=== PATIENT | female | born 1940 | race Caucasian/White ===

== ENCOUNTER 2016-06-04 08:59 | Emergency (ER) | payer OTHER, MEDICARE ==
[2016-06-04] MEDS ORDERED: NORMAL SALINE 10 ML SYRINGE FLUSH IVP PRN (09:16)
--- NOTE | 2016-06-04 09:33 | EKG ---
[address] [address] Measurements Intervals [place] Rate: 63 P: 69 OK: 135 QRS: -5 QRSD: 101 T: 29 QT: 375 QTc: 382 Interpretive Statements SINUS RHYTHM Compared to ECG 01/13/2016 00:34:44 No significant changes Electronically Signed On 06-04-16 20:02:34 MST by Colton Lema [email or web address]
[2016-06-04 09:35] VITALS: RESP 16; TEMP 96.5
[2016-06-04 10:04] LABS: BILIRUBIN,URINE NEGATIVE (NEG); CLARITY,URINE CLEAR (CLEAR); GLUCOSE, URINE (UA) NEGATIVE (NEG); LEUKOCYTE ESTERASE ,URINE NEGATIVE (NEG); NITRATE,URINE NEGATIVE (NEG); OCCULT BLOOD,URINE NEGATIVE (NEG); PROTEIN,URINE 30 mg/dl (NEG); UROBILINOGEN,URINE 0.2 EU/dL (0.2)
[2016-06-04 10:15] LABS: BASOPHILS # (AUTO) 0.03 10*3/UL; BASOPHILS % (AUTO) 0.6 % (0-1); EOSINOPHILS % (AUTO) 1.8 % (0-8); HEMATOCRIT 40.8 % (37.0-47.0); HEMOGLOBIN 13.4 g/dL (12.0-16.0); IMM GRAN % (AUTO) 0.2 % (0-5); IMM GRAN# (AUTO) 0.01 10*3/UL; LYMPHOCYTES # (AUTO) 1.32 10*3/uL; LYMPHOCYTES % (AUTO) 26.2 % (10-50); MEAN CORPUSCULAR HEMOGLOBIN 29.5 PG (27-31); MEAN CORPUSCULAR HGB CONC 32.8 g/dL (33-37); MEAN PLATELET VOLUME 9.5 FL (7.4-12.2); MONOCYTES # (AUTO) 0.46 10*3/UL (0.3-0.8); MONOCYTES % (AUTO) 9.1 % (5-15); NEUTROPHILS # (AUTO) 3.13 10*3/UL; NEUTROPHILS % (AUTO) 62.1 % (50-80); RDW COEFFICIENT OF VARIATION 15.2 % (11.5-14.5); RED BLOOD COUNT 4.55 10^6/uL (4.20-5.40); WHITE BLOOD COUNT 5.04 10^3/uL (4.8-10.8)
[2016-06-04 10:22] LABS: URINE SAMPLE TYPE CLEAN CATCH URINE
[2016-06-04 10:22] LABS: PLATELET MORPHOLOGY COMMENT NORMAL MORPHOLOGY (NORM)
[2016-06-04 10:24] LABS: URINE CRYSTALS RARE
[2016-06-04 10:36] LABS: PROTHROMBIN TIME 10.1 secs (9.7-11.4)
[2016-06-04 10:37] LABS: ASPARTATE AMINO TRANSFERASE 24 IU/L (8-39); BILIRUBIN,TOTAL 0.9 mg/dL (0.3-1.2); BLOOD UREA NITROGEN 25 mg/dL (7-22); CALCIUM 10.3 mg/dL (8.7-10.7); CHLORIDE 100 meq/L (98-112); GLUCOSE 168 mg/dL (78-110); MAGNESIUM 1.6 mg/dL (1.6-2.4); POTASSIUM 4.5 meq/L (3.8-5.2); SODIUM 137 meq/L (135-145); TOTAL PROTEIN 8.2 g/dL (6.1-8.0)
[2016-06-04 10:38] LABS: C-REACTIVE PROTEIN < 0.5 mg/dL (0.0-0.9)
--- NOTE | 2016-06-04 10:39 | DI ---
HISTORY: Right-sided headache with right-sided blurred vision. Rule out stroke. COMPARISON: None available. TECHNIQUE: Contiguous axial images of the brain were obtained and submitted for interpretation. 37 images. FINDINGS: No acute infarct, intracranial hemorrhage, or mass effect is identified. There is no hydr ocephalus, or significant midline shift. There is moderate senescent change. The visualized paranasal sinuses and mastoids appear relatively well-aerated. There is modest mucosa l thickening. There is calcification of the pineal gland. IMPRESSION: 1. No intracranial hemorrhage. MRI is recommended if clinical symptoms persist. NOTIFICATION: The above report was sent to Bridgette in the ER Department on 06/04/2016 at 12:46 PM EST.
--- NOTE | 2016-06-04 11:42 | DI ---
HISTORY: Headache and blurred vision. COMPARISON: None available. TECHNIQUE: Multiplanar multisequence imaging without gadolinium. FINDINGS: There is no restricted diffusion on the DWI images. Periventricular and deep white matter T2/FLAIR abnormalities probably represent chronic microvascular ischemia, although demyelinating lesions, though not favored, cannot be completely excluded. There is no intracranial hemorrhage. No GRE sequence has been obtained however. There is no hydrocephalus, or significant midline shift. There is senescent change. Flow voids of the major intracranial vessels are preserved. The pituitary fossa is grossly unremarkable. There is modest mucosal thickening involving the paranasal sinuses. The visualized upper cervical vertebrae appear intact. IMPRESSION: 1. No intracranial hemorrhage. MRA: The middle cerebral arteries, anterior cerebral arteries, basilar artery, both posterior cerebral art eries, and both vertebral arteries demonstrate normal signal return. There is origin of the left AQUATIC FACILITY MANAGER from the left ICA. The left P-comm is prominent. There is att enuation of the left P4 segment, that is probably due to signal dropout rather than true occlusion. IMPRESSION: 1. No large vessel occlusion. NOTIFICATION: The above report was sent to Bridgette in the ER Department on 06/04/2016 at 01:53 PM EST.
[2016-06-04 11:59] LABS: FREE T4 (FREE THYROXINE) 1.44 ng/dL (0.93-1.71)
--- NOTE | 2016-06-04 12:15 | DI ---
HISTORY: Headache and blurred vision. History of stroke. COMPARISON: None available. TECHNIQUE: MRA images without contrast. [id number]. FINDINGS: There is no significant stenosis at either carotid bifurcation by NASCET criteria. The left vertebral artery is dominant. Both vertebral arteries demonstrate antegrade flow. The right vertebral artery arises from the right subclavian artery. The left vertebral artery arises from the left subclavian artery. IMPRESSION: 1. No hemodynamically significant stenosis. NOTIFICATION: The above report was sent to Татьяна in the ER Department on 06/04/2016 at 02:23 PM EST.
--- NOTE | 2016-06-04 21:56 | PDOC ---
Eye Complaint HPI - General Chief Complaint: Eye Problem / Injury Stated Complaint: Eye is blurry Date Seen by Provider: 06/04/16 Time Seen by Provider: 09:05 Source: POSITIVE: Patient Exam Limitations: POSITIVE: No limitations Nurse's Notes Reviewed & Considered: Yes - History of Present Illness Initial Comments: The patient is a 76-year-old female who presents to the emergency department with complaints of blurriness in her right eye and some mild right-sided headache. She states that she woke up early this morning and she felt normal. She had fallen asleep again and when she woke up her right eye had blurry vision. This is persisted since she woke up. She also has just a vague right- sided headache. She does have a history of previous stroke and became concerned that maybe she was having some stroke symptoms. She denies numbness or weakness in her arms, change in speech, balance issues, confusion. She is diabetic and reports that her blood sugar was 150 at home just prior to coming to the emergency room. She denies any associated chest pain or shortness of breath. She has not had any recent illness or trauma. She does report that she has had bilateral cataract surgery and last time she was at the eye doctor she was told that one of her eyes had some buildup from the surgery. She did try to go to the eye doctor today however they were closed. Have you received a tetanus shot in the past 10 years?: Yes - Patient Home Medications Home Medications: Home Medications Ubidecarenone [Co Q-10] 100 mg PO HS 12/14/13 Lorazepam 1 tab PO TID PRN #30 tab 06/09/15 Clopidogrel Bisulfate [Clopidogrel] 75 mg PO DAILY #90 tab 07/01/15 Amlodipine Besylate 10 mg PO DAILY #90 tab 10/03/15 Clonazepam 1 tab PO TID PRN #90 tab 10/11/15 Levothyroxine Sodium 1 tab PO DAILY #30 tab 10/11/15 Pantoprazole Sodium 1 tab PO QPM #30 tab 10/11/15 Insulin Glargine,Hum.rec.anlog [Zaria Rodriguez] 20 unit SUBCUT QHS #4 unit Atorvastatin Calcium 20 mg PO QHS #90 tab 05/02/16 Metoprolol Tartrate 0.5 tab PO BID #90 tab 05/02/16 Ramipril [Altace] 2 cap PO BID #360 cap 05/02/16 Gabapentin [Neurontin] 300 mg PO TID #15 cap 05/21/16 Hydrocodone Bit/Acetaminophen [[place] 5-325 Tablet] 1 tab PO Q4-6H #20 tab Metformin HCl 1 tab PO BID #180 tab 05/21/16 Methylprednisolone [Medrol] 4 mg PO DAILY #1 packet 05/21/16 Diclofenac Sodium [Voltaren] 4 gm TOPICAL QID #3 tube 05/22/16 - Patient Allergies Allergies/Adverse Reactions: Allergies Allergy/AdvReac Type Severity Reaction Status Date / Time iodine [Iodine] Allergy Severe Anaphylaxis Verified 06/04/16 10:31 sitagliptin phosphate AdvReac Severe KIDNEY Verified 06/04/16 10:31 [From Calebuvia] FAILURE SHELLFISH Allergy Severe Anaphylaxis Uncoded 06/04/16 10:31 Past Medical History - heen HEENT History: Cataracts, Dentures/Partials, Other (please comment) Additional HEENT History: BILATERAL CATARACT REMOVAL, WEARS GLASSES Cardiovascular History: Hypertension, Arrhythmia, Hyperlipidemia, Other (please comment) Additional Cardiovasular History: MURMUR, ATRIAL FIBRILLATION. HEART CATH 2014 Respiratory History: Other (please comment) Additional Respiratory History: SEASONAL ALLERGIES Gastrointestinal History: Peptic Ulcer Disease, Other (please comment) Additional Gastrointestinal History: Hx of appendectomy. 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, TIA 09/10/14 Blood Disorders: Denies History Psychiatric History: Denies History History of Sexually Transmitted Diseases: No Cancer History: Denies History In Past Year Been Physically Harmed or Verbally Threatened: No History of MDRO: No History of Other Communicable Diseases: No Tobacco Use: Never Smoker Alcohol Use: Rarely Substance Use Type: None Previous Surgical History: Yes Type / Date of Surgery: APPY/ R CTR/ COLONOSCOPY/ EGD/ THOROIDECTOMY/ BILATERAL CATARACT REMOVAL, RIGHT KNEE ARTHROSCOPY Anesthesia Reactions: No Malignant Hyperthermia: No Significant Family History: Heart disease, Cancer, Diabetes Past Medical History Reviewed: Reviewed - No Changes ROS - Limitations ROS Limitations: No Limitations Constitution: DENIES: Chills, Fever Cardiovascular: REPORTS: Denies Cardiac Symptoms Respiratory: REPORTS: Denies Resp Symptoms Neurological: REPORTS: Headache (Mild right-sided headache). DENIES: Dizziness , Tingling, Numbness, Difficulty Walking, Weakness Gastrointestinal: DENIES: Nausea Endocrine: REPORTS: Denies Symptoms Musculoskeletal: REPORTS: Denies MS Symptoms Genitourinary: REPORTS: Denies Symptoms Eyes: REPORTS: Vision Changes (Blurred vision in the right eye only). DENIES: Eye Pain ENT: REPORTS: Denies Symptoms Skin: DENIES: Rash Eye Complaint Physical Exam - General Appearance General Appearance: POSITIVE: Alert, Cooperative, No Acute Distress, Anxious - Visual Acuity / Pupil Size Visual Acuity: 20/50: Right, 20/20: Left - HEENT Head / Face: POSITIVE: No Facial Swelling Eyes: POSITIVE: Inspection Normal, PERRL, EOM's Intact, Other (Funduscopic exam is grossly normal bilaterally) Ears: POSITIVE: Ears Normal Inspection, TM Normal Inspection Nose: POSITIVE: Inspection Normal Oropharynx: POSITIVE: External Inspection Nml, Pharynx Inspect. Nml, Airway Intact, Voice Normal, Moist Mucous Membranes - Skin Skin: POSITIVE: Normal Color, No Skin Rash - Neck / Back Neck/Back: POSITIVE: Normal Inspection - Respiratory / Cardiovascular Respiratory / CVS: POSITIVE: No Respiratory Distress, Breath Sounds Normal, Regular Rate/Rhythm, Heart Sounds Normal Peripheral Pulses: Dorsalis-pedis (R): 2+, Dorsalis-pedis (L): 2+ - Abdomen Abdomen: Soft: (All Quadrants), Denies Tenderness: (All Quadrants), No Distention: (All Quadrants) - Neurological / Psychological Neuro / Psych: POSITIVE: Oriented to Person, Oriented to Place, Oriented to Time , CN's Normal as Tested, Normal Speech, Normal Cognition Eye Complaint Progress - Results Reviewed by me Xrays/CTs/US Reviewed by me: Yes Discussed with Radiologist: Yes Radiology Findings: CT scan of the head reveals no evidence of acute intracranial hemorrhage. MRI of the brain reveals no evidence of acute stroke. MRA of the [place] and carotid arteries reveals no significant stenosis per radiologist. Lab Results Reviewed: Yes Lab Results:: Laboratory Results 06/04/16 06/04/16 Range/Units 09:57 10:11 WBC 5.04 (4.8-10.8) 10^3/uL RBC 4.55 (4.20-5.40) 10^6/uL Hgb 13.4 (12.0-16.0) g/dL Hct 40.8 (37.0-47.0) % MCV 89.7 (81-99) FL MCH 29.5 (27-31) PG MCHC 32.8 L (33-37) g/dL RDW Std Deviation 48.9 (39-50) fL RDW Coeff of [place] 15.2 H (11.5-14.5) % Plt Count 291 (140-350) 10*3/uL MPV 9.5 (7.4-12.2) FL Immature Gran % (Auto) 0.2 (0-5) % Neut % (Auto) 62.1 (50-80) % Lymph % (Auto) 26.2 (10-50) % [place] % (Auto) 9.1 (5-15) % Eos % (Auto) 1.8 (0-8) % Baso % (Auto) 0.6 (0-1) % Immature Gran # (Auto) 0.01 10*3/UL Neut # (Auto) 3.13 10*3/UL Lymph # (Auto) 1.32 10*3/uL [place] # (Auto) 0.46 (0.3-0.8) 10*3/UL Eos # (Auto) 0.09 10*3/UL Baso # (Auto) 0.03 10*3/UL WBC Morphology Comment Normal morphology (NORM) Plt Morphology Comment Normal morphology (NORM) RBC Morph Comment Normal morphology (NORM) PT 10.1 (9.7-11.4) secs INR 0.98 (0.00-5.90) N/A D-Dimer 0.28 (0.00-0.59) mg/L Sodium 137 (135-145) meq/L Potassium 4.5 (3.8-5.2) meq/L Chloride 100 (98-112) meq/L Carbon Dioxide 25 (23-33) meq/L Anion Gap 12 (5-20) BUN 25 H (7-22) mg/dL Creatinine 1.0 (0.50-1.20) mg/dL Estimated GFR (>60 ml/min/1.73m(2)) BUN/Creatinine Ratio 25.00 H (6-20) Glucose 168 H (78-110) mg/dL Calculated Osmolality 291.0 (267-292) mOsm/kg Calcium 10.3 (8.7-10.7) mg/dL Magnesium 1.6 (1.6-2.4) mg/dL Total Bilirubin 0.9 (0.3-1.2) mg/dL AST 24 (8-39) IU/L ALT 48 (9-52) IU/L Alkaline Phosphatase 88 (38-126) IU/L Troponin I < 0.012 (< 0.040) ng/mL C-Reactive Protein < 0.5 (0.0-0.9) mg/dL Total Protein 8.2 H (6.1-8.0) g/dL Albumin 4.8 (3.5-4.8) g/dL Globulin 3.4 (2.50-4.10) g/dL Albumin/Globulin Ratio 1.40 (1.3-2.0) mg/g TSH 18.3 H (0.2700-4.2000) uIU/mL Free T4 1.44 (0.93-1.71) ng/dL Ur Collection Type Clean catch urine Urine Color Yellow Urine Clarity Clear (CLEAR) Urine pH 6.0 (5.0-8.5) Ur Specific [place] <=1.005 (1.005-1.030) Urine Protein 30 (NEG) mg/dl Urine Glucose (UA) Negative (NEG) mg/dL Urine Ketones Negative (NEG) Urine Occult Blood Negative (NEG) Urine Nitrate Negative (NEG) Urine Bilirubin Negative (NEG) Urine Urobilinogen 0.2 (0.2) EU/dL Ur Leukocyte Esterase Negative (NEG) Urine RBC None (NONE) /hpf Urine WBC None (NONE) Ur Squamous Epith Cells None (NONE) Ur Renal Epithelial Cell None (NONE) Urine Crystals Rare Urine Bacteria None (NONE) Urine Casts None (NONE) Urine Mucus None (NONE) Urine Trichomonas None (NONE) Urine Yeast None (NONE) Ur Culture Indicated? Culture not set EKG Interpreted/Reviewed By Me:: Yes EKG Interpretation:: POSITIVE: Normal Sinus Rhythm, Normal Rate, Normal Intervals, Normal [place], Normal QRS, Normal ST/T - Patient's Progress MDM / ED Course: On presentation the patient's main complaint is some vague right-sided headache with associated blurred vision in her right eye. She does have history of previous stroke as well as previous carotid endarterectomy. The patient's primary concern was that she might be having a stroke. Her lab work and EKG is all unremarkable. MRI was not immediately available when the patient came in so a CT noncontrast of the head was done to rule out hemorrhage and this was normal. The patient subsequently did undergo MRI as well as MRA of the [place] and carotid arteries with was unremarkable and showed no evidence of acute stroke or significant stenosis. These findings were discussed with the patient. The blurred vision is most likely secondary to a local process in her eye rather than a stroke. The patient is advised to follow-up with her rules examiner tomorrow when his office is open. Return to the emergency room sooner if any worsening or change in symptoms. - Consult Counseled: POSITIVE: Patient, Family, RE: Lab Results, RE: Radiology Results, RE : DX, RE: Need for F/U Patient Care Time - Estimated PCT Patient Care Time (In Minutes): 55 Vital Signs - VS Reviewed Vital Signs Reviewed: Yes Discharge Clinical Impression: Blurred vision Condition: Stable Patient Instructions Given at Discharge: Blurred Vision (ED) Additional Instructions: The CAT scan and the MRI of the brain did not reveal any evidence of stroke. Your blood work was all essentially normal as well except for slightly elevated blood sugar at 160. At this time the cause of the blurred vision in the right eye appears to be related to some process going on in the eyeball itself. This could be related to your previous cataract surgery or something going on with the retina. Recommend follow-up with your rules examiner or production assembler. Return to the emergency room if any worsening or change in symptoms. Continue current medications. Follow Up With: KENIA ROBB [Primary Care Provider] -
== END 2016-06-04 12:35 | disposition home or self-care (01) ==
LOC: ER 08:59
DX: H53.8 Other visual disturbances (principal); R51 Headache; E11.9 Type 2 diabetes mellitus without complications
CPT/HCPCS: 70450; 70544; 70547; 70551; 80053; 81001; 81003; 83735; 84439; 84443; 84484; 85025; 85379; 85610; 86140; 93005; 93010; 99284

== ENCOUNTER → 2016-07-18 | Outpatient (CLI) | payer OTHER, MEDICARE ==
[2016-07-18 08:29] LABS: HEMOGLOBIN A1C 7.62 % (4.2-6.0); MEAN BLOOD GLUCOSE (CALC) 167.746 mg/dL
[2016-07-18 11:00] LABS: CREATININE, URINE 81.4 MG/DL (15-500)
== END ==
LOC: LAB 08:06
PROVIDERS: ATTEND Internal Medicine
DX: E11.9 Type 2 diabetes mellitus without complications (principal); Z79.4 Long term (current) use of insulin
CPT/HCPCS: 36415; 82043; 83036

== ENCOUNTER → 2016-07-23 | Outpatient (CLI) | payer OTHER, MEDICARE | LOC: MMPC 11:11 | PROVIDERS: ATTEND Internal Medicine | DX: E11.9 Type 2 diabetes mellitus without complications (principal) | CPT/HCPCS: 99213; G0463 ==

== ENCOUNTER → 2016-09-17 | Outpatient (CLI) | payer OTHER, MEDICARE | LOC: MOB LAB 09:56 | DX: J02.9 Acute pharyngitis, unspecified (principal); K21.9 Gastro-esophageal reflux disease without esophagitis; I10 Essential (primary) hypertension | CPT/HCPCS: 87880; 99212; G0463 ==

== ENCOUNTER 2016-09-18 05:00 | Emergency (ER) | payer OTHER, MEDICARE ==
[2016-09-18 05:25] VITALS: RESP 20; TEMP 97.4
--- NOTE | 2016-09-18 06:12 | PDOC ---
Upper Respiratory HPI - General Chief Complaint: Cough / URI Stated Complaint: COUGH AND SORE THROAT Date Seen by Provider: 09/18/16 Time Seen by Provider: 05:15 Source: POSITIVE: Patient Exam Limitations: POSITIVE: No limitations Nurse's Notes Reviewed & Considered: Yes - History of Present Illness Initial Comments: The patient is a 76 year old female. She states that for the past 2 days she has had a sore throat and cough. She states that cough produces pain in her throat and in her upper chest. No fevers. She was seen for these symptoms yesterday at the walk-in clinic and apparently was treated for GERD. No ear pain. Cough is nonproductive. No GI or symptoms. No rashes or skin changes. Timing: REPORTS: Constant Duration: >24 hours Severity: Moderate (2 days, approximately) Quality: REPORTS: "Pain" (Sore throat and some pain upper anterior chest with cough) Context: DENIES: Recent Foreign Travel, Insect Bite, Tick Bite, Multiple Pt's w / Same Sx, Recent Chemotherapy, Other Modifying Factors: improves with: Coughing Associated Symptoms: REPORTS: Sore Throat, Hoarseness, Cough Similar Symptoms Previously: No Recently seen/treated/hospitalized: No Any Prior Injuries Related to Current Complaint?: No - Patient Home Medications Home Medications: Home Medications Ubidecarenone [Co Q-10] 100 mg PO HS 12/14/13 Lorazepam 1 tab PO TID PRN #30 tab 06/09/15 Amlodipine Besylate 10 mg PO DAILY #90 tab 10/03/15 Metoprolol Tartrate 0.5 tab PO BID #90 tab 05/02/16 Diclofenac Sodium [Voltaren] 4 gm TOPICAL QID #3 tube 05/22/16 Pen Needle, Diabetic [Insulin Pen Needle] 1 each MC QD #100 unit 06/07/16 Atorvastatin Calcium 20 mg PO QHS #90 tab 07/03/16 Ramipril [Altace] 2 cap PO BID #360 cap 07/03/16 Clopidogrel Bisulfate [Clopidogrel] 75 mg PO DAILY #90 tab 07/09/16 Metformin HCl 1 tab PO BID #180 tab 07/18/16 Insulin Glargine,Hum.rec.anlog [Zaria Rodriguez] 20 unit SUBCUT QHS #4 unit Levothyroxine Sodium 1 tab PO DAILY #30 tab 09/06/16 Pantoprazole Sodium 1 tab PO BID #60 tab 09/17/16 Azithromycin [Zithromax] 500 mg PO DAILY #5 tab 09/18/16 - Patient Allergies Allergies/Adverse Reactions: Allergies Allergy/AdvReac Type Severity Reaction Status Date / Time iodine [Iodine] Allergy Severe Anaphylaxis Verified 09/18/16 05:11 sitagliptin phosphate AdvReac Severe KIDNEY Verified 09/18/16 05:11 [From Junuvia] FAILURE SHELLFISH Allergy Severe Anaphylaxis Uncoded 09/18/16 05:11 Past Medical History - heen HEENT History: Cataracts, Dentures/Partials, Other (please comment) Additional HEENT History: BILATERAL CATARACT REMOVAL, WEARS GLASSES Cardiovascular History: Hypertension, Arrhythmia, Hyperlipidemia, Other (please comment) Additional Cardiovasular History: MURMUR, ATRIAL FIBRILLATION. HEART CATH 2014 Respiratory History: Other (please comment) Additional Respiratory History: SEASONAL ALLERGIES Gastrointestinal History: Peptic Ulcer Disease, Other (please comment) Additional Gastrointestinal History: Hx of appendectomy. 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, TIA 09/10/14 Blood Disorders: Denies History Psychiatric History: Denies History History of Sexually Transmitted Diseases: No Female Reproductive History: Denies History Obstetrical History: Denies History Cancer History: Denies History In Past Year Been Physically Harmed or Verbally Threatened: No History of MDRO: No History of Other Communicable Diseases: No Tobacco Use: Never Smoker Alcohol Use: Rarely Substance Use Type: None Previous Surgical History: Yes Type / Date of Surgery: APPY/ R CTR/ COLONOSCOPY/ EGD/ THOROIDECTOMY/ BILATERAL CATARACT REMOVAL, RIGHT KNEE ARTHROSCOPY Anesthesia Reactions: No Malignant Hyperthermia: No Significant Family History: Heart disease, Cancer, Diabetes Past Medical History Reviewed: Reviewed - No Changes ROS - Limitations ROS Limitations: No Limitations Constitution: REPORTS: Denies Symptoms Cardiovascular: REPORTS: Denies Cardiac Symptoms Respiratory: REPORTS: Cough Non Productive Neurological: REPORTS: Denies Neuro Symptoms Gastrointestinal: REPORTS: Denies GI Symptoms Endocrine: REPORTS: Denies Symptoms Musculoskeletal: REPORTS: Denies MS Symptoms Genitourinary: REPORTS: Denies Symptoms Eyes: REPORTS: Denies Symptoms ENT: REPORTS: Congestion, Sore Throat Skin: REPORTS: Denies Skin Symptoms Lympathic: REPORTS: Denies Lympathic Symptoms Immunologic: POSITIVE: Denies Symptoms Psychiatric: POSITIVE: Denies Psych Symptoms Upper Respiratory/Fever Exam - General Appearance General Appearance: REPORTS: Alert, Cooperative, No Acute Distress, No Evidence of Trauma - HEENT HEENT: POSITIVE: Head Inspection Nml, Eyes Inspection Nml, Ears Inspection Nml, Nose Inspection Nml, Oral/Dental Inspect. Nml, PERRL, EOMI, Pharyngeal Erythema. NEGATIVE: Pharynx Inspect. Nml (Pharynx erythematous without exudate. No pharyngeal swelling) - Neck Neck: REPORTS: Normal Inspection, Supple - Respiratory Respiratory: REPORTS: No Respiratory Distress, Breath Sounds Normal, No Pleuritic Chest Pain, Speaks Full Sentences, No Pain on Inspiration - Abdomen Abdomen: Soft: (All Quadrants), Normal Bowel Sounds: (All Quadrants), Denies Tenderness: (All Quadrants), No Splenomegaly: (All Quadrants), No Hepatomegaly: (All Quadrants), No Guarding: (All Quadrants), No Rebound: (All Quadrants), No Palpable Pulse: (All Quadrants), No Palpabale Mass: (All Quadrants), No Distention: (All Quadrants), No Rigidity: (All Quadrants) - Cardiovascular Cardiovascular: REPORTS: Regular Rate and Rhythm, Heart Sounds Normal, Equal Pulses, Strong Pulses, No Murmur, No Gallop, No Friction Rub, No JVD Peripheral Pulses: Radial (R): 2+, Radial (L): 2+ - Skin Skin: REPORTS: Intact, Normal For Race, Warm, Dry, No Rash - Extremities Extremity: Non-Tender: (All Extremities), Normal ROM: (All Extremities), Normal Inspection: (All Extremities) - Neurological / Psychological Neurological: POSITIVE: Oriented X3, lisw Normal As Tested, Motor Normal, Sensation Normal, 5, 6 Images - Dental Dental: 1 - Pharyngeal erythema Upper Resp/Fever Progress - Results Reviewed by me Lab Results Reviewed: Yes (rapid strep screen negative) - Patient's Progress Pain Medication Addressed: POSITIVE: Yes (Recommended Tylenol) School/Work Release Addressed: POSITIVE: Not Applicable Re-Examine Time: 05:40 Status: POSITIVE: Unchanged Air Movement: Good Antibiotics Given: Yes (Zithromax 500 mg daily for 5 days) - Consult Counseled: POSITIVE: Patient RX Given: Yes (Zithromax, 500 mg daily for 5 days) Patient Care Time - Estimated PCT Patient Care Time (In Minutes): 19 Vital Signs - Recent Vital Signs Vital Signs: Vital Signs (Last 8 hours) Temp Pulse Resp BP BP Pulse Ox 09/18/16 05:00 97.4 F 85 20 200/98 209/96 92 - VS Reviewed Vital Signs Reviewed: Yes Discharge Clinical Impression: Cough, Upper respiratory infection, Sore throat symptom Discharge Disposition: Discharged to Home Condition: Stable Prescriptions / Orders: Azithromycin [Zithromax] 500 mg PO DAILY #5 tab Patient Instructions Given at Discharge: Pharyngitis (ED), Acute Bronchitis (ED ) Additional Instructions: Zithromax, 1 daily. Gargle with Chloraseptic for sore throat. Humidifier. Rest and increase fluids. Follow-up with your primary care provider. Return here anytime if condition worsens. Follow Up With: KENIA ROBB [Primary Care Provider] - (Follow-up with your primary care provider. Instructions as above. Return here as necessary.)
== END 2016-09-18 06:01 | disposition home or self-care (01) ==
LOC: ER 05:00
DX: J06.9 Acute upper respiratory infection, unspecified (principal); R05 Cough; E11.9 Type 2 diabetes mellitus without complications; I48.91 Unspecified atrial fibrillation; J02.9 Acute pharyngitis, unspecified
CPT/HCPCS: 87802; 99282

== ENCOUNTER → 2016-09-25 | Outpatient (CLI) | payer OTHER, MEDICARE ==
--- NOTE | 2016-09-25 16:12 | DI ---
PA /LATERAL CHEST X-RAY, 09/25/2016 3:34 PM : Clinical History: Bronchitis. Previous Exam: 01/13/2016. There is no acute soft tissue or bony abnormality. There are old mild compression fractures at approx imately T7 and T8 indicating severe osteoporosis. Heart size is normal. Lungs are clear. Mediastinal structures are normal. There are no pulmonary nodules. Readin. Normal chest x-ray. 2. Severe osteoporosis.
== END ==
LOC: MOB RAD 15:42
PROVIDERS: ATTEND Nurse Practitioner
DX: J40 Bronchitis, not specified as acute or chronic (principal)
CPT/HCPCS: 71020

== ENCOUNTER → 2016-10-17 | Outpatient (CLI) | payer OTHER, MEDICARE ==
[2016-10-17 13:50] LABS: CREATININE, URINE 37.2 MG/DL (15-500)
[2016-10-17 14:17] LABS: HEMOGLOBIN A1C 7.31 % (4.2-6.0)
== END ==
LOC: LAB 08:17
PROVIDERS: ATTEND Internal Medicine
DX: E11.9 Type 2 diabetes mellitus without complications (principal); Z79.4 Long term (current) use of insulin
CPT/HCPCS: 36415; 82043; 83036

== ENCOUNTER 2016-10-21 10:37 | Observation (INO) | payer OTHER, MEDICARE ==
[2016-10-21] MEDS ORDERED: NITROGLYCERIN 0.4 MG SL TAB (BOTTLE OF 3) SL ONE (10:41)
[2016-10-21] MEDS ORDERED: Sodium Chloride 0.9% 1,000 ML PRIMARY IV ONE (10:41)
[2016-10-21] MEDS ORDERED: ONDANSETRON 4 MG/2 ML VIAL IVP ONE (10:41)
[2016-10-21] MEDS ORDERED: MORPHINE SULFATE 4 MG/1 ML IVP ONE (10:41)
[2016-10-21] MEDS ORDERED: Sodium Chloride 0.9% 1,000 ML ONE (10:42)
[2016-10-21] MEDS ORDERED: ASPIRIN 81 MG (BABY) CHEWABLE TABLET ONE (10:42)
--- NOTE | 2016-10-21 10:43 | PDOC ---
Chest Pain HPI - General Chief Complaint: Chest Pain Stated Complaint: chest pain Date Seen by Provider: 10/21/16 Time Seen by Provider: 10:42 Source: Patient, EMS Exam Limitations: POSITIVE: No limitations Treatment Prior to Arrival: REPORTS: Nitroglycerin, Aspirin Nurse's Notes Reviewed & Considered: Yes EMS Report Reviewed & Considered: Verbal - History of Present Illness Initial Comments: Patient comes in with chest pain. Patient was being driven here to the emergency room by her flagged down a police shift commander who escorted him to the emergency room. Patient is having chest pain that his left substernal with radiation to her neck shoulder and arm all on the left side. Addition pain radiates into her back. She has associated shortness of breath. 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 She denies any headache, nausea vomiting or diarrhea, fever chills or sweats, hematuria or dysuria, myalgias or arthralgias, rashes. Body Location Affected: REPORTS: Chest Timing: REPORTS: Intermittent Duration: <1 week Severity: Severe Context: REPORTS: Rest Quality: REPORTS: Dullness, "Pain" Radiation: REPORTS: Jaw (L), Shoulder (L), Arm (L) Associated Symptoms: REPORTS: Shortness of Breath Modifying Factors: improves with: None Reported Similar Symptoms Previously: Yes Recently seen/treated/hospitalized: No Any Prior Injuries Related to Current Complaint?: No - Patient Home Medications Home Medications: Home Medications Ubidecarenone [Co Q-10] 100 mg PO HS 12/14/13 Lorazepam 1 tab PO TID PRN #30 tab 06/09/15 Pen Needle, Diabetic [Insulin Pen Needle] 1 each MC QD #100 unit 06/07/16 Atorvastatin Calcium 20 mg PO QHS #90 tab 07/03/16 Ramipril [Altace] 2 cap PO BID #360 cap 07/03/16 Clopidogrel Bisulfate [Clopidogrel] 75 mg PO DAILY #90 tab 07/09/16 Insulin Glargine,Hum.rec.anlog [Zaria Rodriguez] 20 unit SUBCUT QHS #4 unit Levothyroxine Sodium 1 tab PO DAILY #30 tab 09/06/16 Pantoprazole Sodium 1 tab PO BID #60 tab 09/17/16 Amlodipine Besylate 10 mg PO DAILY #90 tab 09/20/16 Guaifenesin/Codeine Phosphate [Guaifenesin Ac Cough Syrup] 5 ml PO QHS #50 ml Metformin HCl 1 tab PO BID #180 tab 09/26/16 Metoprolol Tartrate 0.5 tab PO BID #90 tab 09/26/16 - Patient Allergies Allergies/Adverse Reactions: Allergies Allergy/AdvReac Type Severity Reaction Status Date / Time iodine [Iodine] Allergy Severe Anaphylaxis Verified 10/21/16 10:50 sitagliptin phosphate AdvReac Severe KIDNEY Verified 10/21/16 10:50 [From Januvia] FAILURE SHELLFISH Allergy Severe Anaphylaxis Uncoded 10/21/16 10:50 Past Medical History - heen HEENT History: Cataracts, Dentures/Partials, Other (please comment) Additional HEENT History: BILATERAL CATARACT REMOVAL, WEARS GLASSES Cardiovascular History: Hypertension, Arrhythmia, Hyperlipidemia, Other (please comment) Additional Cardiovasular History: MURMUR, ATRIAL FIBRILLATION. HEART CATH 2014 Respiratory History: Other (please comment) Additional Respiratory History: SEASONAL ALLERGIES Gastrointestinal History: Peptic Ulcer Disease, Other (please comment) Additional Gastrointestinal History: Hx of appendectomy. 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, TIA 09/10/14 Blood Disorders: Denies History Psychiatric History: Denies History History of Sexually Transmitted Diseases: No Cancer History: Denies History History of MDRO: No History of Other Communicable Diseases: No Alcohol Use: Rarely Substance Use Type: None Previous Surgical History: Yes Type / Date of Surgery: APPY/ R CTR/ COLONOSCOPY/ EGD/ THOROIDECTOMY/ BILATERAL CATARACT REMOVAL, RIGHT KNEE ARTHROSCOPY Anesthesia Reactions: No Malignant Hyperthermia: No Significant Family History: Heart disease, Cancer, Diabetes ROS - Limitations ROS Limitations: No Limitations Constitution: REPORTS: Denies Symptoms Cardiovascular: REPORTS: Chest Pain Respiratory: REPORTS: Shortness Of Breath Neurological: REPORTS: Denies Neuro Symptoms Gastrointestinal: REPORTS: Denies GI Symptoms Endocrine: REPORTS: Elevated Glucose Musculoskeletal: REPORTS: Back Pain Genitourinary: REPORTS: Denies Symptoms Eyes: REPORTS: Denies Symptoms ENT: REPORTS: Denies Symptoms Skin: REPORTS: Denies Skin Symptoms Lympathic: REPORTS: Denies Lympathic Symptoms Immunologic: POSITIVE: Denies Symptoms Psychiatric: POSITIVE: Denies Psych Symptoms Chest Pain PE - General Appearance General Appearance: REPORTS: Alert, Cooperative, No Evidence of Trauma, Moderate Distress - HEENT HEENT: POSITIVE: Head Inspection Nml, Eyes Inspection Nml, Ears Inspection Nml, Nose Inspection Nml, PERRL, EOMI - Neck Neck: REPORTS: Normal Inspection - Respiratory Respiratory: REPORTS: No Respiratory Distress, Breath Sounds Normal, Chest Non- Tender - Cardiovascular Cardiovascular: REPORTS: Regular Rate and Rhythm, Heart Sounds Normal, No Murmur , No Gallop, No Friction Rub - Abdomen Abdomen: Soft: (All Quadrants), Normal Bowel Sounds: (All Quadrants), Denies Tenderness: (All Quadrants) - Skin Skin: REPORTS: Intact, Normal For Race, Warm, Dry, No Rash - Extremities Extremity: Non-Tender: (All Extremities), Normal ROM: (All Extremities), Normal Inspection: (All Extremities), Pelvis Stable: (All Extremities) - Neurological / Psychological Neurological: POSITIVE: Affect Apporpriate, Oriented X3, Motor Normal, Sensation Normal Chest Pain Progress - Results Reviewed by me Xrays/CTs/US Reviewed by me: Yes Discussed with Radiologist: No Lab Results Reviewed: Yes Lab Results:: Laboratory Results 10/21/16 10/21/16 Range/Units 10:41 10:52 WBC 6.00 (4.8-10.8) 10^3/uL RBC 4.34 (4.20-5.40) 10^6/uL Hgb 13.0 (12.0-16.0) g/dL Hct 39.7 (37.0-47.0) % MCV 91.5 (81-99) FL MCH 30.0 (27-31) PG MCHC 32.7 L (33-37) g/dL RDW Std Deviation 48.3 (39-50) fL RDW Coeff of Mitchel 14.7 H (11.5-14.5) % Plt Count 288 (140-350) 10*3/uL MPV 8.9 (7.4-12.2) FL Immature Gran % (Auto) 0.2 (0-5) % Neut % (Auto) 54.0 (50-80) % Lymph % (Auto) 35.3 (10-50) % [place] % (Auto) 9.7 (5-15) % Eos % (Auto) 0.5 (0-8) % Baso % (Auto) 0.3 (0-1) % Immature Gran # (Auto) 0.01 10*3/UL Neut # (Auto) 3.24 10*3/UL Lymph # (Auto) 2.12 10*3/uL [place] # (Auto) 0.58 (0.3-0.8) 10*3/UL Eos # (Auto) 0.03 10*3/UL Baso # (Auto) 0.02 10*3/UL WBC Morphology Comment Normal morphology (NORM) Plt Morphology Comment Normal morphology (NORM) RBC Morph Comment Normal morphology (NORM) PT 10.3 (9.7-11.4) secs INR 1.00 (0.00-5.90) N/A D-Dimer 0.27 (0.00-0.59) mg/L Sodium 144 (135-145) meq/L Potassium 4.6 (3.8-5.2) meq/L Chloride 105 (98-112) meq/L Carbon Dioxide 26 (23-33) meq/L Anion Gap 13 (5-20) BUN 24 H (7-22) mg/dL Creatinine 1.1 (0.50-1.20) mg/dL Estimated GFR (>60 ml/min/1.73m(2)) BUN/Creatinine Ratio 21.81 H (6-20) Glucose 164 H (78-110) mg/dL Calculated Osmolality 305.0 H (267-292) mOsm/kg Calcium 10.4 (8.7-10.7) mg/dL Magnesium 1.6 (1.6-2.4) mg/dL Total Bilirubin 0.5 (0.3-1.2) mg/dL AST 21 (8-39) IU/L ALT 34 (9-52) IU/L Alkaline Phosphatase 89 (38-126) IU/L Lactate Dehydrogenase 418 (313-618) IU/L Total Creatine Kinase 49 (30-136) IU/L Troponin I < 0.012 (< 0.040) ng/mL NT-Pro-B Natriuret Pep 151 (0-450) PG/ML Total Protein 8.0 (6.1-8.0) g/dL Albumin 4.7 (3.5-4.8) g/dL Globulin 3.3 (2.50-4.10) g/dL Albumin/Globulin Ratio 1.40 (1.3-2.0) mg/g EKG Interpreted/Reviewed By Me:: Yes EKG Interpretation:: POSITIVE: Normal Sinus Rhythm, Normal Rate - Patient's Progress Pain Medication Addressed: POSITIVE: Yes Re-Examine Time: 11:46 Status: POSITIVE: Improved MDM / ED Course: Patient was examined, an IV started, blood drawn and sent to the lab for studies , radiographic and EKG studies were obtained. Patient received a second sublingual nitroglycerin here in the emergency room, morphine, and Zofran. Her pain has significantly improved. Findings: CBC is unremarkable. Comprehensive metabolic panel shows elevated creatinine at 1.5. D-dimer is normal, troponin is normal, EKG is interpreted by me shows a sinus rhythm with no ST elevation, no ischemic pattern appreciated. Chest x-ray is a portable AP and is interpreted by me showing no acute cardiopulmonary decompensation. TSH is pending. LDH and CKP are in the normal limits. Next Assessment: Chest pain relieved with nitroglycerin, normal EKG, normal troponin , in a patient who is a vasculopath. Next Plan: Admission for rule out myocardial infarction with serial EKG and enzymes. Quality Measure Initiative: CP/AMI: POSITIVE: EKG, ASA Quality Measure Initiative: CAP: POSITIVE: CXR or CT - Consult Consult (If Yes, Name of Consulting MD & Time Called): Yes (Dr. Crane [id number]) Consulting MD will see pt:: [place] [facility] [place] Counseled: POSITIVE: Patient, Family, RE: Lab Results, RE: Radiology Results, RE : DX Patient Care Time - Estimated PCT Patient Care Time (In Minutes): 45 Vital Signs - Recent Vital Signs Vital Signs: Vital Signs (Last 8 hours) Temp Pulse Resp BP Pulse Ox 10/21/16 10:38 97.9 F 83 18 239/106 94 - VS Reviewed Vital Signs Reviewed: Yes Discharge Clinical Impression: Chest pain Discharge Disposition: Admit to Inpatient Condition: Stable Patient Instructions Given at Discharge: Chest Pain (ED) Date Decision to Admit to Inpatient: 10/21/16 Time Decision to Admit to Inpatient: 11:45
[2016-10-21] MEDS: NITROGLYCERIN 0.4 MG SL TAB (BOTTLE OF 3) SL ONE ×2 (10:44→10:54)
[2016-10-21 10:51] LABS: HEMATOCRIT 39.7 % (37.0-47.0); MEAN CORPUSCULAR HGB CONC 32.7 g/dL (33-37); MEAN CORPUSCULAR VOLUME 91.5 FL (81-99); RED BLOOD COUNT 4.34 10^6/uL (4.20-5.40)
[2016-10-21 10:52] LABS: BASOPHILS # (AUTO) 0.02 10*3/UL; BASOPHILS % (AUTO) 0.3 % (0-1); EOSINOPHILS # (AUTO) 0.03 10*3/UL; EOSINOPHILS % (AUTO) 0.5 % (0-8); LYMPHOCYTES # (AUTO) 2.12 10*3/uL; MEAN PLATELET VOLUME 8.9 FL (7.4-12.2); MONOCYTES # (AUTO) 0.58 10*3/UL (0.3-0.8); MONOCYTES % (AUTO) 9.7 % (5-15); NEUTROPHILS # (AUTO) 3.24 10*3/UL; PLATELET MORPHOLOGY COMMENT NORMAL MORPHOLOGY (NORM); RBC MORPHOLOGY COMMENT NORMAL MORPHOLOGY (NORM); WBC MORPHOLOGY COMMENT NORMAL MORPHOLOGY (NORM)
[2016-10-21 10:57] LABS: BUN/CREATININE RATIO 21.81 (6-20); CALCIUM 10.4 mg/dL (8.7-10.7); MAGNESIUM 1.6 mg/dL (1.6-2.4); SERUM ALBUMIN 4.7 g/dL (3.5-4.8)
[2016-10-21] MEDS ORDERED: MORPHINE SULFATE 2 MG/1 ML IV PRN (12:40)
[2016-10-21] MEDS ORDERED: ONDANSETRON 4 MG/2 ML VIAL IVP PRN (12:40)
[2016-10-21] MEDS ORDERED: LIDOCAINE W/ SODIUM BICARB 0.5 ML SYR SUBD PRN (12:40)
[2016-10-21] MEDS ORDERED: DIABETIC MC SCH (12:40)
[2016-10-21] MEDS ORDERED: NORMAL SALINE 10 ML SYRINGE FLUSH IVP PRN (12:40)
[2016-10-21] MEDS ORDERED: MAG HYDROX/AL HYDROX/SIMETH 30 ML SUSP PO PRN (12:40)
[2016-10-21] MEDS ORDERED: CALCIUM CARBONATE 500 MG (TUMS) CHEWABLE TABLET PO PRN (12:40)
--- NOTE | 2016-10-21 12:57 | PDOC ---
History and Physical - History of Present Illness History of Present Illness: This very nice 76-year-old female, past medical history significant for diabetes , also had the previous heart catheter and carotid endarterectomy on the left side 2 years ago. The heart catheter at that time was normal she had chest pain around this morning and was brought in by her with radiation to her neck and shoulder and arms on the left side. The patient states that she had some left arm pain over the last 3 or 4 weeks but did not think much of it. She is chest pain-free at the present time and her initial troponins are negative Past Medical History Medical History: 1. Cerebrovascular disease with history of stroke in the past. 2. Postsurgical hypothyroidism. 3. Diabetes mellitus type II well controlled. 4. Hypertension. 5. Hypercholesterolemia. 6. History of renal failure, remote Surgical History: 1. Appendectomy. 2. Right knee scope. 3. thyroidectomy Pertinent Family History: Significant for heart disease and diabetes. 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 Does not smoke or drink currently. Spends time in [employer] and in [employer]. Quit smoking over 8 years ago. Tobacco Use: Former Smoker Substance Use Type: None Medication / Allergies Home Medications: Home Medications Medication Instructions Recorded Confirmed Type Ubidecarenone [Co Q-10] 100 mg PO HS 12/14/13 10/21/16 History Lorazepam 1 tab PO TID PRN #30 tab 06/09/15 10/21/16 Clinic Pen Needle, Diabetic [Insulin Pen 1 each MC QD #100 unit 06/07/16 10/21/16 Clinic Needle] Atorvastatin Calcium 20 mg PO QHS #90 tab 07/03/16 10/21/16 Clinic Ramipril [Altace] 2 cap PO BID #360 cap 07/03/16 10/21/16 Clinic Clopidogrel Bisulfate [Clopidogrel] 75 mg PO DAILY #90 tab 07/09/16 10/21/16 Clinic Insulin Glargine,Hum.rec.anlog 20 unit SUBCUT QHS #4 unit 07/25/16 10/21/16 Clinic [Zaria Rodriguez] Levothyroxine Sodium 1 tab PO DAILY #30 tab 09/06/16 10/21/16 Clinic Pantoprazole Sodium 1 tab PO BID #60 tab 09/17/16 10/21/16 [facility] Amlodipine Besylate 10 mg PO DAILY #90 tab 09/20/16 10/21/16 [facility] Guaifenesin/Codeine Phosphate 5 ml PO QHS #50 ml 09/25/16 10/21/16 [facility] [Guaifenesin Ac Cough Syrup] Metformin HCl 1 tab PO BID #180 tab 09/26/16 10/21/16 [facility] Metoprolol Tartrate 0.5 tab PO BID #90 tab 09/26/16 10/21/16 [facility] Allergies/Adverse Reactions: Allergies Allergy/AdvReac Type Severity Reaction Status Date / Time iodine [Iodine] Allergy Severe Anaphylaxis Verified 10/21/16 10:50 sitagliptin phosphate AdvReac Severe KIDNEY Verified 10/21/16 10:50 [From Elsa] FAILURE SHELLFISH Allergy Severe Anaphylaxis Uncoded 10/21/16 10:50 Review of Systems - Review of Systems All Systems: Reviewed & No Additional Complaints Except as Stated - Respiratory Respiratory: DENIES: Negative System Review, Cough, Sputum, Dyspnea At Rest, Dyspnea with Exertion, Pleuritic Pain, Hemoptysis, Wheezing, Other, See HPI - Cardiovascular Cardiovascular: REPORTS: Chest Pain - Gastrointestinal Gastrointestinal / Abdominal: DENIES: Negative System Review, Nausea, Vomiting, Diarrhea, Constipation, Abdominal Pain, Bloody Stool, Poor Appetite, Heartburn, Regurgitation, Bloating, Lactose Intolerance, Melena, Bright Red Blood Per Rectum, Other, See HPI - Neurological Neurologic: DENIES: Negative System Review, Headache, Numbness/Paresthesia, Tremors, Weakness, Seizures, Head Trauma, LOC, Dizziness, Confusion, Memory Loss , Difficulty Walking, Incoordination, Other, See HPI Exam - General General Appearance: POSITIVE: No Acute Distress, Cooperative - Eye Eye Exam: POSITIVE: Normal Appearance, PERRL, EOMI - Respiratory Respiratory Exam: POSITIVE: Clear to Auscultation - Bilaterally, Breathing Non Labored, Normal To Percussion, Normal to Percussion and Palpation - Cardiovascular Cardiovascular Exam: POSITIVE: RRR, No Murmur, No Clicks, No Gallops, No Rubs - GI/Abdominal GI/Abdominal Exam: POSITIVE: Non Tender, Non Distended, Soft - Extremities Extremities Exam: POSITIVE: Normal Inspection, No Clubbing Present, No Edema Present - Neurological Neurological Exam: POSITIVE: Alert, Oriented x 3, CN II-XII Intact, No Facial Droop - Psychiatric Psychiatric Exam: POSITIVE: Normal Affect, Normal Mood Results - Labs CBC and BMP: 10/21/16 10:41 10/21/16 10:41 Assessment and Plan - Patient Problems (1) Chest pain Current Visit: Yes Status: Acute Comment: Initial troponins are negative no acute changes on EKG we will order Lexiscan stress test (2) Diabetes mellitus type II, controlled Current Visit: No Status: Acute Comment: Continue home meds Photo / Body Diagrams - Uploaded Photos Uploaded Photos:
[2016-10-21] MEDS ORDERED: LORazepam 1 MG TABLET PO PRN (13:15)
[2016-10-21] MEDS: metFORMIN 500 MG TABLET PO SCH (16:56)
[2016-10-21 18:31] LABS: TROPONIN I < 0.012 ng/mL (< 0.040)
[2016-10-21] MEDS ORDERED: GUAIFENESIN/CODEINE SYRUP 100 MG/ 10 MG/ 5 ML UD CUP PO SCH (21:00)
[2016-10-21] MEDS ORDERED: ATORVASTATIN 20 MG TABLET PO SCH (21:00)
[2016-10-21] MEDS ORDERED: INSULIN GLARGINE HUM REC ANLOG 300 UNIT/ML SUBCUT SCH (21:00)
--- NOTE | 2016-10-21 21:36 | DI ---
AP CHEST X-RAY, 10/21/2016 10:41 AM : Clinical History: Chest pain. Previous Exam: 09/25/2016. On this view, the patient took a very shallow inspiration. There is no acute soft tissue or bony abno rmality. Heart size is normal. Lungs are clear. Mediastinal structures are normal. There are no pulmo nary nodules. The patient has had previous thyroid surgery. Reading: Normal chest x-ray for this shallow inspiratory effort. There has been no interval change.
[2016-10-21] MEDS: RAMIPRIL 2.5 MG CAPSULE PO SCH (21:39)
[2016-10-21] MEDS: PANTOPRAZOLE 40 MG TABLET PO SCH (21:40)
[2016-10-21] MEDS: Metoprolol TARTRATE Tab 25 MG TAB PO SCH (21:40)
[2016-10-21] MEDS ORDERED: Insulin Glargine SoloStar Inj 100 UNIT/ML INSULN.PEN SUBCUT SCH (21:45)
[2016-10-22] MEDS ORDERED: LEVOTHYROXINE 100 MCG TABLET PO SCH (05:30)
[2016-10-22 06:40] LABS: HEMATOCRIT 34.8 % (37.0-47.0); MEAN CORPUSCULAR HEMOGLOBIN 29.5 PG (27-31); MEAN CORPUSCULAR HGB CONC 31.6 g/dL (33-37); MEAN CORPUSCULAR VOLUME 93.3 FL (81-99); MEAN PLATELET VOLUME 9.5 FL (7.4-12.2); RED BLOOD COUNT 3.73 10^6/uL (4.20-5.40)
[2016-10-22 06:41] LABS: BASOPHILS # (AUTO) 0.01 10*3/UL; BASOPHILS % (AUTO) 0.2 % (0-1); EOSINOPHILS % (AUTO) 2.2 % (0-8); LYMPHOCYTES # (AUTO) 1.69 10*3/uL; MONOCYTES # (AUTO) 0.44 10*3/UL (0.3-0.8); MONOCYTES % (AUTO) 9.5 % (5-15); NEUTROPHILS # (AUTO) 2.38 10*3/UL; NEUTROPHILS % (AUTO) 51.4 % (50-80); PLATELET MORPHOLOGY COMMENT NORMAL MORPHOLOGY (NORM); RBC MORPHOLOGY COMMENT NORMAL MORPHOLOGY (NORM); WBC MORPHOLOGY COMMENT NORMAL MORPHOLOGY (NORM)
[2016-10-22 06:42] LABS: CALCIUM 9.6 mg/dL (8.7-10.7); CHOL/HDL RATIO 3.62 RATIO (0-4.0); SERUM ALBUMIN 3.7 g/dL (3.5-4.8)
[2016-10-22 08:23] VITALS: RESP 16
--- NOTE | 2016-10-22 08:44 | EKG ---
[address] [address] Measurements Intervals [place] Rate: 81 P: 75 AK: 140 QRS: -6 QRSD: 89 T: 69 QT: 336 QTc: 374 Interpretive Statements SINUS RHYTHM WITH SINUS ARRHYTHMIA Compared to ECG 06/04/2016 09:32:32 No significant change Electronically Signed On 10-22-16 17:47:55 MDT by Colton Lema [id number]
[2016-10-22] MEDS ORDERED: CLOPIDOGREL 75 MG TABLET PO SCH (09:00)
[2016-10-22] MEDS ORDERED: ENOXAPARIN SODIUM 40 MG/0.4 ML SYRINGE SUBCUT SCH (09:00)
--- NOTE | 2016-10-22 10:17 | DCSUMMARY ---
Hospitalization Summary Hospital Course: Final Discharge Diagnosis: Current Visit Problems Problem Status Priority Diagnosed Code Chest pain Acute R07.9 Diagnostic Data, Laboratory Data, and Procedures of Signifigance: Laboratory Results 10/21/16 10/21/16 10/21/16 Range/Units 10:41 10:52 17:00 WBC 6.00 (4.8-10.8) 10^3/uL RBC 4.34 (4.20-5.40) 10^6/uL Hgb 13.0 (12.0-16.0) g/dL Hct 39.7 (37.0-47.0) % MCV 91.5 (81-99) FL MCH 30.0 (27-31) PG MCHC 32.7 L (33-37) g/dL RDW Std Deviation 48.3 (39-50) fL RDW Coeff of Mitchel 14.7 H (11.5-14.5) % Plt Count 288 (140-350) 10*3/uL MPV 8.9 (7.4-12.2) FL Immature Gran % (Auto) 0.2 (0-5) % Neut % (Auto) 54.0 (50-80) % Lymph % (Auto) 35.3 (10-50) % [place] % (Auto) 9.7 (5-15) % Eos % (Auto) 0.5 (0-8) % Baso % (Auto) 0.3 (0-1) % Immature Gran # (Auto) 0.01 10*3/UL Neut # (Auto) 3.24 10*3/UL Lymph # (Auto) 2.12 10*3/uL [place] # (Auto) 0.58 (0.3-0.8) 10*3/UL Eos # (Auto) 0.03 10*3/UL Baso # (Auto) 0.02 10*3/UL WBC Morphology Comment Normal morphology (NORM) Plt Morphology Comment Normal morphology (NORM) RBC Morph Comment Normal morphology (NORM) PT 10.3 (9.7-11.4) secs INR 1.00 (0.00-5.90) N/A D-Dimer 0.27 (0.00-0.59) mg/L Sodium 144 (135-145) meq/L Potassium 4.6 (3.8-5.2) meq/L Chloride 105 (98-112) meq/L Carbon Dioxide 26 (23-33) meq/L Anion Gap 13 (5-20) BUN 24 H (7-22) mg/dL Creatinine 1.1 (0.50-1.20) mg/dL Estimated GFR (>60 ml/min/1.73m(2)) BUN/Creatinine Ratio 21.81 H (6-20) Glucose 164 H (78-110) mg/dL Calculated Osmolality 305.0 H (267-292) mOsm/kg Calcium 10.4 (8.7-10.7) mg/dL Magnesium 1.6 (1.6-2.4) mg/dL Total Bilirubin 0.5 (0.3-1.2) mg/dL AST 21 (8-39) IU/L ALT 34 (9-52) IU/L Alkaline Phosphatase 89 (38-126) IU/L Lactate Dehydrogenase 418 (313-618) IU/L Total Creatine Kinase 49 43 (30-136) IU/L Troponin I < 0.012 < 0.012 (< 0.040) ng/mL NT-Pro-B Natriuret Pep 151 (0-450) PG/ML Total Protein 8.0 (6.1-8.0) g/dL Albumin 4.7 (3.5-4.8) g/dL Globulin 3.3 (2.50-4.10) g/dL Albumin/Globulin Ratio 1.40 (1.3-2.0) mg/g Triglycerides (44-200) mg/dL Cholesterol (120-200) mg/dL LDL Cholesterol, Calc mg/dL VLDL Cholesterol (0-40) mg/dL HDL Cholesterol (40-150) mg/dL Cholesterol/HDL Ratio (0-4.0) RATIO TSH 11.5 H (0.2700-4.2000) uIU/mL 10/21/16 10/22/16 Range/Units 23:01 06:05 WBC 4.63 L (4.8-10.8) 10^3/uL RBC 3.73 L (4.20-5.40) 10^6/uL Hgb 11.0 L (12.0-16.0) g/dL Hct 34.8 L (37.0-47.0) % MCV 93.3 (81-99) FL MCH 29.5 (27-31) PG MCHC 31.6 L (33-37) g/dL RDW Std Deviation 49.2 (39-50) fL RDW Coeff of Mitchel 14.9 H (11.5-14.5) % Plt Count 256 (140-350) 10*3/uL MPV 9.5 (7.4-12.2) FL Immature Gran % (Auto) 0.2 (0-5) % Neut % (Auto) 51.4 (50-80) % Lymph % (Auto) 36.5 (10-50) % Newton % (Auto) 9.5 (5-15) % Eos % (Auto) 2.2 (0-8) % Baso % (Auto) 0.2 (0-1) % Immature Gran # (Auto) 0.01 10*3/UL Neut # (Auto) 2.38 10*3/UL Lymph # (Auto) 1.69 10*3/uL Newton # (Auto) 0.44 (0.3-0.8) 10*3/UL Eos # (Auto) 0.10 10*3/UL Baso # (Auto) 0.01 10*3/UL WBC Morphology Comment Normal morphology (NORM) Plt Morphology Comment Normal morphology (NORM) RBC Morph Comment Normal morphology (NORM) PT (9.7-11.4) secs INR (0.00-5.90) N/A D-Dimer 0.22 (0.00-0.59) mg/L Sodium 140 (135-145) meq/L Potassium 4.6 (3.8-5.2) meq/L Chloride 106 (98-112) meq/L Carbon Dioxide 25 (23-33) meq/L Anion Gap 9 (5-20) BUN 23 H (7-22) mg/dL Creatinine 1.0 (0.50-1.20) mg/dL Estimated GFR (>60 ml/min/1.73m(2)) BUN/Creatinine Ratio 23.00 H (6-20) Glucose 101 (78-110) mg/dL Calculated Osmolality 293.0 H (267-292) mOsm/kg Calcium 9.6 (8.7-10.7) mg/dL Magnesium (1.6-2.4) mg/dL Total Bilirubin 0.5 (0.3-1.2) mg/dL AST 21 (8-39) IU/L ALT 32 (9-52) IU/L Alkaline Phosphatase 59 (38-126) IU/L Lactate Dehydrogenase (313-618) IU/L Total Creatine Kinase (30-136) IU/L Troponin I < 0.012 (< 0.040) ng/mL NT-Pro-B Natriuret Pep (0-450) PG/ML Total Protein 6.4 (6.1-8.0) g/dL Albumin 3.7 (3.5-4.8) g/dL Globulin 2.6 (2.50-4.10) g/dL Albumin/Globulin Ratio 1.40 (1.3-2.0) mg/g Triglycerides 150 (44-200) mg/dL Cholesterol 134 (120-200) mg/dL LDL Cholesterol, Calc 67.000 mg/dL VLDL Cholesterol 30 (0-40) mg/dL HDL Cholesterol 37 L (40-150) mg/dL Cholesterol/HDL Ratio 3.62 (0-4.0) RATIO TSH (0.2700-4.2000) uIU/mL History and Physical pertinent to Admission: Course of Hospitalization: Is a very nice 76-year-old female who is admitted for chest pain while at home is resolved while in the hospital her troponins remain negative. Underwent Lexiscan stress test today. She has a history of diabetes and a previous Angiocath 2 years ago which was negative by Dr. Beebe. On the date of discharge, the patient was examined: Gen.: [No acute distress, alert, nontoxic] Heart: [Regular rate and rhythm, no murmurs, clicks, gallops, or rubs] Lungs: [Clear to auscultation bilaterally, breathing is nonlabored] Abdomen/GI: [Normal tones on auscultation, soft, nontender, nondistended] Musculoskeletal/extremities: [No clubbing, cyanosis, or edema] Vitals reviewed and are listed below Vital Signs (24 hrs) Temp Pulse Pulse Pulse Resp BP Pulse Ox 10/22/16 08:21 97.4 F 65 16 151/68 90 10/22/16 07:00 64 10/22/16 05:00 97.9 F 64 18 121/65 92 10/22/16 03:00 57 L 10/22/16 00:17 97.6 F 57 L 15 122/42 91 10/21/16 23:00 67 10/21/16 20:38 97.8 F 61 16 141/57 92 10/21/16 19:00 64 60 10/21/16 16:53 97 F 66 17 133/67 93 10/21/16 15:00 63 10/21/16 13:00 97.4 F 64 17 150/69 98 10/21/16 12:40 58 L 10/21/16 10:38 97.9 F 83 18 239/106 94 Assessment and Plan: 1. As per discharge assessments above 2. Disposition: Home 3. Condition on discharge, stable and improved. 4. Diet: regular diet 5. Activities: resume normal activities 6. Follow-Up: 1. [PCP] 2. 7. Medications at the Time of Discharge: Home Medications Medication Instructions Recorded Confirmed Type Ubidecarenone [Co Q-10] 100 mg PO HS 12/14/13 10/21/16 History Lorazepam 1 tab PO TID PRN #30 tab 06/09/15 10/21/16 Clinic Pen Needle, Diabetic [Insulin Pen 1 each MC QD #100 unit 06/07/16 10/21/16 Clinic Needle] Atorvastatin Calcium 20 mg PO QHS #90 tab 07/03/16 10/21/16 Clinic Ramipril [Altace] 2 cap PO BID #360 cap 07/03/16 10/21/16 Clinic Clopidogrel Bisulfate [Clopidogrel] 75 mg PO DAILY #90 tab 07/09/16 10/21/16 Clinic Insulin Glargine,Hum.rec.anlog 20 unit SUBCUT QHS #4 unit 07/25/16 10/21/16 Clinic [Zaria Rodriguez] Levothyroxine Sodium 1 tab PO DAILY #30 tab 09/06/16 10/21/16 Clinic Pantoprazole Sodium 1 tab PO BID #60 tab 09/17/16 10/21/16 Clinic Amlodipine Besylate 10 mg PO DAILY #90 tab 09/20/16 10/21/16 Clinic Guaifenesin/Codeine Phosphate 5 ml PO QHS #50 ml 09/25/16 10/21/16 Clinic [Guaifenesin Ac Cough Syrup] Metformin HCl 1 tab PO BID #180 tab 09/26/16 10/21/16 Clinic Metoprolol Tartrate 0.5 tab PO BID #90 tab 09/26/16 10/21/16 Clinic 8. Time, care, counseling and coordination of care for this discharge is greater than 30 minutes. Exam - Vitals Vital Signs: Vital Signs Temperature 97.4 F Temperature Source Temporal Artery Scan Pulse Rate [Telemetry] 58 Pulse Rate [Pulse Oximeter] 65 Pulse Rate 64 Respiratory Rate 16 Blood Pressure [Right Arm] 151/68 Pulse Ox 90 Oxygen Flow Rate 2 Oxygen Delivery Method Room Air Height 5 ft 4 in Weight 86.273 kg Patient Problems - Patient Problem List (1) Chest pain Current Visit: Yes Status: Acute (2) Diabetes mellitus type II, controlled Current Visit: No Status: Acute
--- NOTE | 2016-10-22 10:19 | STRESSTEST ---
[facility] Interpretive Statements 76 yo female , comes in with chest pain .Hx of diabetes and trop are negative., no acute changes on stress portion will await pictures [email or web address]
[2016-10-22] MEDS ORDERED: RAMIPRIL 10 MG CAPSULE PO ONE (10:34)
[2016-10-22] MEDS: metFORMIN 500 MG TABLET PO SCH ×2 (10:36→17:25)
[2016-10-22] MEDS: PANTOPRAZOLE 40 MG TABLET PO SCH (10:36)
[2016-10-22] MEDS: Metoprolol TARTRATE Tab 25 MG TAB PO SCH (10:36)
[2016-10-22] MEDS ORDERED: RAMIPRIL 10 MG CAPSULE PO SCH (11:00)
[2016-10-22] MEDS: RAMIPRIL 2.5 MG CAPSULE PO SCH (11:11)
[2016-10-22 16:33] VITALS: TEMP 97.2
--- NOTE | 2016-10-22 17:46 | DI ---
2 DAY LEXISCAN STRESS & REST MYOCARDIAL PERFUSION SCANS, 10/21/2016-10/22/2016: Clinical History: Chest pain. Previous Exam: None at this facility. Monitoring Physician: Dr. Pato Crane. Dose: Stress dose: 30 mCi on 10/22/2016. Rest dose: 30 mCi on 10/21/2016. 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 Exam Quality: Excellent. Rejected Beats: Stress = 0%; Rest = 0%. HR: Stress = 62-68 b/m; Rest = 66-7 5 b/m. Left ventricular chamber sizes are normal at stress and rest. Transient ischemic dilatation ratio is 0.98 (normal Angelo TID <= 1.22; normal Lexiscan TID <= 1.33). Stress LVEF: 76%; rest LVEF: 84%. Both the non-attenuated and the attenuated corrected scans show no statistically significant perfusion abn ormalities either at stress or rest. Stress and rest wall motion and myocardial thickening are normal . Limited CT scans of the heart show calcifications in the proximal and middle thirds and some diagon al branches of the LAD and scattered calcifications in the midportion of the left circumflex artery. There are no lung nodules or enlarged nodes. There is a mass in the left adrenal gland measuring abou t 18 mm and this patient had a noncontrast CT scan of the abdomen and pelvis from 03/03/2013. The appe arance of the left adrenal gland is unchanged. There was a 10 mm lesion of the right adrenal gland th at is not visualized on the current study although the current exam was performed without a breath ho ld maneuver. Readin. Normal stress and rest left ventricular chamber size. Transient ischemic dilatation ratio is norm al at 0.9. 2. Normal stress and rest LVEF values of 76% and 84%, respectively 3. Normal stress and rest myocardial perfusion, wall motion, and thickening. 4. Calcifications are present in the proximal and middle thirds of the LAD as well as some diagonal branches. Faint calcifications are present in the left circumflex artery. There is no hilar or medias tinal adenopathy or evidence of lung nodules in the areas that were scanned. 5. There is an 18 mm left adrenal lesion that has not changed in appearance since the noncontrast CT scans from 03/03/2013. Also, the previous study showed a 10 mm lesion of the right adrenal gland that is not visualized on the current study although we did not have the patient hold her breath during t he current CT scans of the chest.
[2016-10-22] MEDS ORDERED: Insulin Glargine SoloStar Inj 100 UNIT/ML INSULN.PEN SUBCUT SCH (21:00)
== END 2016-10-22 18:19 | disposition home or self-care (01) ==
LOC: ER 10:37 → MED/SURG 12:01
PROVIDERS: ADMIT Internal Medicine; ATTEND Internal Medicine
DX: R07.9 Chest pain, unspecified (principal); E11.9 Type 2 diabetes mellitus without complications
CPT/HCPCS: 36415 ×2; 71010; 78452; 80053 ×2; 80061; 82550; 82948; 83615; 83735; 83880; 84443; 84484; 85025 ×2; 85379 ×2; 85610; 93005; 93010; 93016; 93017; 93018; 94761; 96374; 96375; 99284 ×2; A9500; J1650; J1815; J2785; J2270; J2405; J7030

== ENCOUNTER → 2016-11-06 | Outpatient (CLI) | payer OTHER, MEDICARE | LOC: MMPC 11:11 | PROVIDERS: ATTEND Nurse Practitioner | DX: R07.9 Chest pain, unspecified (principal); E11.9 Type 2 diabetes mellitus without complications | CPT/HCPCS: 99213; G0463 ==

== ENCOUNTER → 2016-12-27 | Outpatient (CLI) | payer OTHER, MEDICARE ==
[2016-12-27 07:53] LABS: HEMOGLOBIN A1C 7.84 % (4.2-6.0)
[2016-12-27 09:14] LABS: CREATININE, URINE 71.4 MG/DL (15-500)
== END ==
LOC: LAB 07:15
PROVIDERS: ATTEND Internal Medicine
DX: E11.9 Type 2 diabetes mellitus without complications (principal); Z79.4 Long term (current) use of insulin
CPT/HCPCS: 36415; 82043; 83036

== ENCOUNTER → 2016-12-31 | Outpatient (CLI) | payer OTHER, MEDICARE | LOC: MMPC 11:11 | PROVIDERS: ATTEND Internal Medicine | DX: E11.9 Type 2 diabetes mellitus without complications (principal); E78.5 Hyperlipidemia, unspecified; E89.0 Postprocedural hypothyroidism | CPT/HCPCS: 99214; G0463 ==

== ENCOUNTER → 2017-01-14 | Outpatient (CLI) | payer OTHER, MEDICARE | LOC: MMPC 09:00 | PROVIDERS: ATTEND Physician Assistant Medical | DX: S39.012A Strain of muscle, fascia and tendon of lower back, initial encounter (principal) | CPT/HCPCS: 99213; G0463 ==

== ENCOUNTER → 2017-01-17 | Outpatient (CLI) | payer OTHER, MEDICARE ==
--- NOTE | 2017-01-17 10:48 | DI ---
History: Shoulder pain Comparison: None Findings: Subjectively, there is osteopenia. Large periarticular osteophyte formation around the articular margins of the humeral head. Joint spac e narrowing in the glenohumeral joint. There are osteophytes in the acromioclavicular joint, including inferior osteophyte formation. No fracture is demonstrated, but evaluation is somewhat limited due to overlying osteophyte formation around the articular margins of the humeral head. If there is clinical suspicion of an occult fractu re, thin section CT scan of the shoulder could be performed. Impression Degenerative changes in the acromioclavicular joint, and glenohumeral joint.
== END ==
LOC: ORTHO 09:54
PROVIDERS: ATTEND Physician Assistant
DX: M25.511 Pain in right shoulder (principal); M19.011 Primary osteoarthritis, right shoulder
CPT/HCPCS: 73030; 99214

== ENCOUNTER → 2017-01-25 | Outpatient (CLI) | payer OTHER, MEDICARE ==
--- NOTE | 2017-01-27 13:17 | DI ---
MRI RIGHT SHOULDER SCAN, 01/25/2017 7:53 AM: Clinical History: Right shoulder pain. Previous Exam: None at this facility. Technique: Axial, coronal, and sagittal fat saturated PD; axial gradient FE; coronal fat saturatedT2 weighted; sagittal T2 weighted. There is no soft tissue edema or abnormal bone signal pattern. There is marked proliferative change a long the inferior margin of the medial aspect of the humeral head. There is moderately severe arthros is of the AC joint with a small AC joint effusion bony proliferative changes present along the superi or aspect of the AC joint. A type I acromion is present. There is tenosynovitis of the extra-articula r portion of the biceps tendon with synovitis. The tendon of the long head of the biceps muscle in th e rotator interval shows tendinosis. There is an interstitial tear along the length of the supraspina tus tendon and this tear would not be visible at arthroscopy. More posteriorly near the conjoined ten don is an articular surface tear that measures 6 x 10 mm in transverse and AP dimensions. An articula r surface tear measuring 5 x 10 mm is present in the infraspinatus tendon. There is also a focus of h ypointensity measuring 4 x 5 x 10 mm in transverse, longitudinal, and AP dimensions. This may represe nt calcific tendinitis. The teres minor tendon is normal. There is a partial thickness articular surf jaclyn tear of the subscapularis tendon measuring 6 x 6 mm in transverse and longitudinal dimensions. A type II SLAP tear is present with anterior and posterior extension. Posterior extension extends into the anteroposterior quadrant and then into the inferoposterior quadrant. Extensive erosive changes saxena ve developed in the glenohumeral joint with complete loss of cartilage in the inferior half of the gl enoid fossa and humeral head. There are 2 large osteochondromas in the subscapular recess and a small osteochondroma in the axillary pouch. There is synovitis in the subscapularis recess, the rotator in terval, and the axillary pouch and this pattern of distribution is frequently associated with adhesiv e capsulitis. No significant muscle atrophy is present. Readin. There is a large hypertrophic spur along the inferior margin of the humeral head medially with re modeling of the inferior half of the glenoid fossa. The cartilaginous surfaces in these areas are com pletely effaced. Synovial osteochondromas are present in the subscapular recess and the axillary pouc h. 2. There is an interstitial tear in the tendon of the supraspinatus muscle with articular surface te ar posteriorly near the conjoined tendon measuring 6 x 10 and transverse and AP dimensions a 5 x 10 a rticular surface partial tear is present in the infraspinatus tendon. This tendon may have a focus of calcific tendinitis. There is an articular surface partial tear of the subscapularis tendon measurin g 6 x 6 mm in transverse and longitudinal dimensions. There is a type II SLAP tear with anterior and posterior extension. Posterior extension continues into the inferoposterior quadrant. Synovitis is no khris in the subscapularis recess, the rotator interval, and the axillary pouch and this is frequently associated with adhesive capsulitis. There is tendinosis of the tendon of the long head of the biceps muscle in the rotator interval. There is moderately severe arthrosis of the AC joint with tenosynovi tis of the Alonzo articular portion of the tendon of the long head of the biceps muscle.
== END ==
LOC: MRI 07:51
PROVIDERS: ATTEND Physician Assistant
DX: M24.011 Loose body in right shoulder (principal); S43.421A Sprain of right rotator cuff capsule, initial encounter; S43.431A Superior glenoid labrum lesion of right shoulder, initial encounter; M65.811 Other synovitis and tenosynovitis, right shoulder; M19.011 Primary osteoarthritis, right shoulder
CPT/HCPCS: 73221

== ENCOUNTER 2017-07-14 23:32 | Inpatient (IN) ==
[2017-07-14] MEDS ORDERED: ONDANSETRON 4 MG/2 ML VIAL IVP ONE (23:38)
[2017-07-14] MEDS ORDERED: D5-NS 1,000 ML PRIMARY IV ONE (23:38)
--- NOTE | 2017-07-14 23:44 | PDOC ---
General Adult HPI - General Chief Complaint: Diabetic Complaint Stated Complaint: HYPOGLYCEMIA. WEAKNESS Date Seen by Provider: 07/14/17 Time Seen by Provider: 23:39 Source: POSITIVE: Patient, Spouse Exam Limitations: POSITIVE: Clinical condition Nurse's Notes Reviewed & Considered: Yes - History of Present Illness Initial Comment: This is a well-developed, well-nourished, confused, 77-year-old female with low blood sugar. Patient is a diabetic and takes insulin injections. She is unsure of what insulin she took tonight only that she took 30 units. Review of her chart shows she is taking Lantus insulin. There is uncertainty as to what her glucose levels were when she took her Lantus tonight. She awoke feeling shaky and diaphoretic and very weak. She checked her sugar and found her blood glucose to be 40. She then drank some apple juice, ate a nutritional bar, and took 2 glucose tablets. She arrives here in the emergency room and a sat G shows a glucose of 140. She states she has a mild headache, denies nausea vomiting or diarrhea, she denies fever or chills, she did have diaphoresis. She denies any abdominal pain, no chest pain or shortness of breath, no cough, no hematuria or dysuria. She is confused, alert and oriented only to person and place, not to time. Have you received a tetanus shot in the past 10 years?: Yes Timing: REPORTS: Abrupt Duration: 1/2 hour Severity: Severe Context: REPORTS: Sleep Modifying Factors: improves with: Eating Associated Symptoms: Weakness, diaphoresis, headache, and confusion. - Patient Home Medications Home Medications: Home Medications Ubidecarenone [Co Q-10] 100 mg PO HS 12/14/13 Insulin Glargine,Hum.rec.anlog [Toujeo Solostar] 30 unit SUBCUT QHS #4 unit 11/17 Insulin Glargine SoloStar Inj [Lantus Solostar Inj] 30 unit SQ QHS #2 12/31/16 metformin 1,000 mg tablet 1,000 mg PO BID #180 tab 03/01/17 metoprolol tartrate 50 mg tablet 25 mg PO BID #90 tab 04/08/17 amlodipine 10 mg tablet 10 mg PO QDAY #90 tab 04/09/17 clopidogrel 75 mg tablet 75 mg PO QDAY #90 tab 04/15/17 atorvastatin 20 mg tablet 20 mg PO QHS #90 tab 05/21/17 levothyroxine 100 mcg tablet 100 mcg PO QDAY #90 tab 05/21/17 ramipril 10 mg capsule 20 mg PO BID #360 cap 05/21/17 prednisone 20 mg tablet 20 mg PO QDAY #7 tab 06/19/17 pantoprazole 40 mg tablet,delayed release 40 mg PO BID #180 tab 06/24/17 lorazepam 0.5 mg tablet See Label Instructions PO TID PRN #90 tab 07/11/17 - Patient Allergies Allergies/Adverse Reactions: Allergies 3 Allergy/AdvReac Type Severity Reaction Status Date / Time iodine [Iodine] Allergy Severe Anaphylaxis Verified 07/14/17 23:45 sitagliptin phosphate AdvReac Severe KIDNEY Verified 07/14/17 23:45 [From Januvia] FAILURE SHELLFISH Allergy Severe Anaphylaxis Uncoded 07/14/17 23:45 Past Medical History - heen HEENT History: Cataracts, Dentures/Partials, Other (please comment) Additional HEENT History: BILATERAL CATARACT REMOVAL, WEARS GLASSES Cardiovascular History: Hypertension, Arrhythmia, Hyperlipidemia, Other (please comment) Additional Cardiovasular History: MURMUR, ATRIAL FIBRILLATION. HEART CATH 2014 Respiratory History: Other (please comment) Additional Respiratory History: SEASONAL ALLERGIES Gastrointestinal History: Peptic Ulcer Disease, Other (please comment) Additional Gastrointestinal History: Hx of appendectomy. 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, TIA 09/10/14 Blood Disorders: Denies History Psychiatric History: Denies History History of Sexually Transmitted Diseases: No Cancer History: Denies History History of MDRO: No History of Other Communicable Diseases: No Alcohol Use: Rarely In the Past 12 Months, Have Used or Abuse Any Substance: None Previous Surgical History: Yes Type / Date of Surgery: APPY/ R CTR/ COLONOSCOPY/ EGD/ THOROIDECTOMY/ BILATERAL CATARACT REMOVAL, RIGHT KNEE ARTHROSCOPY Anesthesia Reactions: No Malignant Hyperthermia: No Significant Family History: Heart disease, Cancer, Diabetes ROS - Limitations ROS Limitations: Clinical Condition (Due to the patient's confusion review of systems is unavailable.) General Adult Exam - General Appearance General Appearance: POSITIVE: Lethargic - HEENT HEENT: POSITIVE: Head Inspection Nml, Eyes Inspection Nml, Ears Inspection Nml, Nose Inspection Nml, Oral/Dental Inspect. Nml, Pharynx Inspect. Nml, PERRL, EOMI - Pupils Pupil Size: 4 mm: Bilateral - Neck Neck: POSITIVE: Normal Inspection, Thyroid Normal - Respiratory Respiratory: POSITIVE: No Respiratory Distress, Breath Sounds Normal, Chest Non- Tender - Cardiovascular Cardiovascular: POSITIVE: Regular Rate & Rhythm, No Murmur, No Gallop, PMI Normal - Abdomen Abdomen: Soft: (All Quadrants), Normal Bowel Sounds: (All Quadrants), Denies Tenderness: (All Quadrants), No Splenomegaly: (All Quadrants), No Hepatomegaly: (All Quadrants), No Guarding: (All Quadrants), No Rebound: (All Quadrants), No Palpable Pulse: (All Quadrants), No Palpabale Mass: (All Quadrants), No Distention: (All Quadrants), No Rigidity: (All Quadrants) - Skin Skin: POSITIVE: Normal Color, Warm, Dry, No Rash - Extremities Extremity: Non-Tender: (All Extremities), Normal ROM: (All Extremities), Normal Inspection: (All Extremities), Pelvis Stable: (All Extremities) - Neurological / Psychological 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 No ataxia.) Reflexes: Patellar (R): 4+, Patellar (L): 4+, Radial (R): 4+, Radial (L): 4+ General Adult Progress - Results Reviewed by me CBC and BMP: 07/14/17 23:40 07/14/17 23:40 - Patient's Progress Re-Examine Time: 00:41 Status: POSITIVE: Improved - Consult Consult (If Yes, Name of Consulting MD & Time Called): Yes (Dr. Grant, 0041hrs) Consulting MD will see pt:: [facility]IVE: [facility] [place] Admit Counseled: POSITIVE: Patient, Family, RE: Lab Results, RE: Radiology Results, RE : DX Patient Care Time - Estimated PCT Patient Care Time (In Minutes): 45 Vital Signs - Recent Vital Signs Vital Signs: Vital Signs (Last 8 hours) Temp Pulse Resp BP Pulse Ox 07/14/17 23:34 95.8 F L 69 16 130/78 90 - VS Reviewed Vital Signs Reviewed: Yes Discharge Clinical Impression: Hypoglycemia, Altered mental status Discharge Disposition: Admit to Observation Condition: Fair Follow Up With: KENIA ROBB [Primary Care Provider] -
[2017-07-14 23:56] LABS: BASOPHILS # (AUTO) 0.04 10*3/UL; BASOPHILS % (AUTO) 0.5 % (0-1); EOSINOPHILS # (AUTO) 0.24 10*3/UL; EOSINOPHILS % (AUTO) 3.3 % (0-8); Hematocrit [HCT] 37.9 % (37.0-47.0); LYMPHOCYTES # (AUTO) 2.02 10*3/uL; MEAN CORPUSCULAR HEMOGLOBIN 29.1 PG (27-31); MEAN CORPUSCULAR HGB CONC 31.7 g/dL (33-37); MEAN CORPUSCULAR VOLUME 91.8 FL (81-99); MEAN PLATELET VOLUME 9.6 FL (7.4-12.2); MONOCYTES # (AUTO) 0.84 10*3/UL (0.3-0.8); MONOCYTES % (AUTO) 11.4 % (5-15); NEUTROPHILS % (AUTO) 57.2 % (50-80); RED BLOOD COUNT 4.13 10^6/uL (4.20-5.40)
[2017-07-14 23:57] LABS: BLOOD UREA NITROGEN 28 mg/dL (7-22); SERUM ALBUMIN 4.4 g/dL (3.5-4.8)
[2017-07-14 23:58] LABS: PLATELET MORPHOLOGY COMMENT NORMAL MORPHOLOGY (NORM); RBC MORPHOLOGY COMMENT NORMAL MORPHOLOGY (NORM); WBC MORPHOLOGY COMMENT NORMAL MORPHOLOGY (NORM)
[2017-07-15] MEDS ORDERED: Magnesium Sulfate 2gm (Premix) 2 GM/50 ML BAG IV ONE ×2 (00:12→01:29)
[2017-07-15 00:29] LABS: HEMOGLOBIN A1C 6.97 % (4.2-6.0)
--- NOTE | 2017-07-15 01:03 | DI ---
EXAM: XR Chest, 1 View CLINICAL HISTORY: ITS.REASON HYPOTHERMIA Physician Notes: Tech Comments: TECHNIQUE: Frontal view of the chest. COMPARISON: 04/28/2017, 03/02/2017 FINDINGS: Lungs: Mildly increased conspicuity of slightly coarse opacity in the right upper lung. Pleural space: Unremarkable. No pneumothorax. Heart: Unremarkable. No cardiomegaly. Mediastinum: Unremarkable. Bones/joints: Unremarkable. IMPRESSION: Mildly increased conspicuity of slightly coarse opacity in the right upper lung. Question infection or inflammation. Recommend follow-up CT 6-8 weeks following treatment completion.
[2017-07-15] MEDS ORDERED: DEXTROSE 31 GM GEL PO PRN (01:29)
[2017-07-15] MEDS ORDERED: Glucagon Inj Vial 1 MG/ML VIAL IM PRN (01:29)
[2017-07-15] MEDS ORDERED: LIDOCAINE W/ SODIUM BICARB 0.5 ML SYR SUBD PRN (01:29)
[2017-07-15] MEDS ORDERED: Insulin Sliding Scale Protocol SUBCUT PRN (01:29)
[2017-07-15] MEDS ORDERED: ACETAMINOPHEN 325 MG TABLET PO PRN (01:29)
[2017-07-15] MEDS ORDERED: ONDANSETRON 4 MG/2 ML VIAL IVP PRN (01:29)
[2017-07-15] MEDS ORDERED: NORMAL SALINE 10 ML SYRINGE FLUSH IVP PRN (01:29)
[2017-07-15] MEDS ORDERED: DEXTROSE 50%-WATER SYRINGE 50 ML SYRINGE IVP PRN (01:29)
[2017-07-15] MEDS ORDERED: DOCUSATE 100 MG CAPSULE PO PRN (01:29)
[2017-07-15] MEDS ORDERED: CALCIUM CARBONATE 500 MG (TUMS) CHEWABLE TABLET PO PRN (01:29)
[2017-07-15] MEDS: HEPARIN 5000 UNIT/1 ML SUBCUT SCH ×3 (02:08→17:38)
[2017-07-15] MEDS: Sodium Chloride 0.9% 1,000 ML PRIMARY IV SCH ×2 (02:08→11:05)
[2017-07-15] MEDS ORDERED: LEVOTHYROXINE 100 MCG TABLET PO SCH ×3 (05:30→13:45)
[2017-07-15] MEDS: Insulin Lispro Flexpen 300 UNIT/3 ML INSULN.PEN SUBCUT SCH ×4 (07:15→20:55)
[2017-07-15] MEDS ORDERED: CLOPIDOGREL 75 MG TABLET PO SCH (09:00)
[2017-07-15] MEDS: Metoprolol TARTRATE Tab 25 MG TAB PO SCH ×2 (09:10→20:46)
[2017-07-15] MEDS: RAMIPRIL 10 MG CAPSULE PO SCH ×2 (09:10→20:46)
[2017-07-15] MEDS: PANTOPRAZOLE 40 MG TABLET PO SCH ×2 (09:11→20:46)
--- NOTE | 2017-07-15 10:42 | DI ---
CT HEAD SCAN WITHOUT IV CONTRAST, 07/15/2017 9:58 AM : Clinical History: Acute mental status change. Previous Exam: 06/04/2016. Scans are obtained from the foramen magnum to the vertex without IV contrast. The 4th, 3rd, and lateral ventricles are of normal size, shape, position, and contour for the patient 's age. There is no evidence of an acute bland or hemorrhagic infarct. There are multiple punctate pe riventricular white matter lucencies bilaterally that extend into the watershed territory, consistent with mild small vessel ischemic disease. This amount of ischemic disease is appropriate for the martin ent's age. There is moderate cerebellar and cerebral atrophy. There are no extracerebral mantles or s hift of the midline structures. Bone window evaluation is normal. The paranasal sinuses are normal. READIN. There is no acute bland or hemorrhagic infarct. 2. Mild small vessel ischemic disease appropriate for the patient's age. 3. Moderate cerebellar and cerebral atrophy. 4. There has been no significant interval change.
--- NOTE | 2017-07-15 13:51 | PDOC ---
HPI - History of Present Illness Date of Service: 07/15/17 Time of Service: 10:30 Chief Complaint: Altered mental status post hypoglycemic episode History of Present Illness: This very pleasant 77 year old female with several medical issues including hypertension, diabetes, who states that last night she noticed that she was feeling quite sweaty and disoriented, she checked her blood sugar and it was low. She took 2 glasses of apple juice, and rechecked it again and it was in the 100s, but her symptoms of mild confusion, sweating and diaphoresis, and discomfort persisted. She did not know what to do so she came in for evaluation. She states that she's been having at least 3 blood sugars a week that are below 80. She states that she has some difficulty managing with Lantus , doesn't feel very well after it is used, and tends to feel that she has headaches. She is hopeful to get off of insulin if possible. She has not visited with the dietitian. There were no other exacerbating factors, and interventions that she try did not work which is why she came in for evaluation. In the emergency room, the patient was placed on D5 fluids, and her blood sugars have been maintained. She feels much better here in the early part of the morning. She denies any fevers or chills. Hemoglobin A1C is much lower than it has been in the past. Past Medical History Medical History: 1. Cerebrovascular disease with history of stroke in the past. 2. Postsurgical hypothyroidism. 3. Diabetes mellitus type II well controlled. 4. Hypertension. 5. Hypercholesterolemia. 6. History of renal failure, remote Surgical History: 1. Appendectomy. 2. Right knee scope. 3. thyroidectomy. 4. Left carotid endarterectomy Pertinent Family History: Significant for heart disease and diabetes. 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 Does not smoke or drink currently. Spends time in [employer] and in [employer]. Quit smoking quite a while back. Tobacco Use: Former Smoker In the Past 12 Months, Have Used or Abuse Any of the Following Substance: None Alcohol Use: None Medication / Allergies Home Medications: Home Medications 3 Medication Instructions Recorded Confirmed Type Ubidecarenone [Co Q-10] 100 mg PO HS 12/14/13 07/08/17 History Insulin Glargine,Hum.rec.anlog 30 unit SUBCUT QHS #4 unit 11/06/16 07/08/17 Rx [Toujeo Solostar] Insulin Glargine SoloStar Inj 30 unit SQ QHS #2 12/31/16 07/08/17 Rx [Lantus Solostar Inj] metformin 1,000 mg tablet 1,000 mg PO BID #180 tab 03/01/17 07/08/17 Rx metoprolol tartrate 50 mg tablet 25 mg PO BID #90 tab 04/08/17 07/08/17 Rx amlodipine 10 mg tablet 10 mg PO QDAY #90 tab 04/09/17 07/08/17 Rx clopidogrel 75 mg tablet 75 mg PO QDAY #90 tab 04/15/17 07/08/17 Rx atorvastatin 20 mg tablet 20 mg PO QHS #90 tab 05/21/17 07/08/17 Rx levothyroxine 100 mcg tablet 100 mcg PO QDAY #90 tab 05/21/17 07/08/17 Rx ramipril 10 mg capsule 20 mg PO BID #360 cap 05/21/17 07/08/17 Rx prednisone 20 mg tablet 20 mg PO QDAY #7 tab 06/19/17 07/08/17 Rx insulin glargine 100 unit/mL (3 #4 Samples 06/24/17 07/08/17 Sample mL) subcutaneous pen pantoprazole 40 mg tablet,delayed 40 mg PO BID #180 tab 06/24/17 07/08/17 Rx release lorazepam 0.5 mg tablet See Label Instructions PO TID PRN 07/11/17 Rx #90 tab Allergies/Adverse Reactions: Allergies 3 Allergy/AdvReac Type Severity Reaction Status Date / Time iodine [Iodine] Allergy Severe Anaphylaxis Verified 07/14/17 23:45 sitagliptin phosphate AdvReac Severe KIDNEY Verified 07/14/17 23:45 [From Januvia] FAILURE SHELLFISH Allergy Severe Anaphylaxis Uncoded 07/14/17 23:45 Review of Systems - Review of Systems All Systems: Reviewed & No Additional Complaints Except as Stated (I did a 12 point review systems and it was negative other than that discussed in history present illness and that noted below.) - Additonal Details Additional ROS Details: The patient has noticed that she's been a little bit more tired and fatigued lately and wonders if it could be related to her thyroid problems. She's had difficulty with lower blood sugars. Exam - Vitals Vital Signs: Vital Signs Temperature 97.7 F Temperature Source Temporal Artery Scan Pulse Rate [Pulse Oximeter] 65 Pulse Rate [Telemetry] 69 Pulse Rate 66 Respiratory Rate 20 Blood Pressure [Left Arm] 131/67 Blood Pressure 104/54 Pulse Ox 94 Oxygen Delivery Method Room Air Height 5 ft 4 in Weight 183 lb 9.6 oz - General General Appearance: No Acute Distress, Cooperative - Head Head Exam: Normal Inspection, Normocephalic, Atraumatic - Eye Eye Exam: POSITIVE: No Scleral Icterus - ENT ENT Exam: POSITIVE: Mucous Membranes Moist - Neck Neck Exam: Normal Inspection, No Tenderness, No Lymphadenopathy, No Thyromegaly - Respiratory Respiratory Exam: POSITIVE: Clear to Auscultation - Bilaterally, Breathing Non Labored, Normal to Percussion and Palpation - Cardiovascular Cardiovascular Exam: POSITIVE: RRR, No Murmur, No Clicks, No Gallops, No Rubs, No JVD - GI/Abdominal GI/Abdominal Exam: POSITIVE: Normal Bowel Sounds, Non Tender, Non Distended, Soft - Rectal Rectal Exam: POSITIVE: Deferred - External Exam: POSITIVE: Deferred Exam: POSITIVE: Deferred - Extremities Extremities Exam: POSITIVE: No Clubbing Present, No Edema Present, No Cyanosis Present - Back Back Exam: POSITIVE: No CVA Tenderness - Neurological Neurological Exam: POSITIVE: Alert, Oriented x 3, Normal Gait, No Facial Droop, Speech Intact / Clear, Moves All Extremities Equally - Psychiatric Psychiatric Exam: POSITIVE: Normal Affect, Normal Mood Results - Labs CBC and BMP: 07/14/17 23:40 07/14/17 23:40 Additional Lab Results: Laboratory Results 07/14/17 07/14/17 07/14/17 Range/Units 23:40 23:40 23:40 WBC 7.35 (4.8-10.8) 10^3/uL RBC 4.13 L (4.20-5.40) 10^6/uL Hgb 12.0 (12.0-16.0) g/dL Hct 37.9 (37.0-47.0) % MCV 91.8 (81-99) FL MCH 29.1 (27-31) PG MCHC 31.7 L (33-37) g/dL RDW Std Deviation 51.2 H (39-50) fL RDW Coeff of Mitchel 15.5 H (11.5-14.5) % Plt Count 248 (140-350) 10*3/uL MPV 9.6 (7.4-12.2) FL Immature Gran % (Auto) 0.1 (0-5) % Neut % (Auto) 57.2 (50-80) % Lymph % (Auto) 27.5 (10-50) % [place] % (Auto) 11.4 (5-15) % Eos % (Auto) 3.3 (0-8) % Baso % (Auto) 0.5 (0-1) % Immature Gran # (Auto) 0.01 10*3/UL Neut # (Auto) 4.20 10*3/UL Lymph # (Auto) 2.02 10*3/uL [place] # (Auto) 0.84 H (0.3-0.8) 10*3/UL Eos # (Auto) 0.24 10*3/UL Baso # (Auto) 0.04 10*3/UL WBC Morphology Comment Normal morphology (NORM) Plt Morphology Comment Normal morphology (NORM) RBC Morph Comment Normal morphology (NORM) Sodium 142 (135-145) meq/L Potassium 3.9 (3.8-5.2) meq/L Chloride 105 (98-112) meq/L Carbon Dioxide 19 L (23-33) meq/L Anion Gap 18 (5-20) BUN 28 H (7-22) mg/dL Creatinine 1.4 H (0.50-1.20) mg/dL Estimated GFR County [employer] BUN/Creatinine Ratio 20.00 (6-20) Glucose 143 H (78-110) mg/dL Mean Blood Glucose mg/dL Hemoglobin A1c (4.2-6.0) % Calculated Osmolality 301.0 H (267-292) mOsm/kg Calcium 10.8 H (8.7-10.7) mg/dL Magnesium 1.5 L (1.6-2.4) mg/dL Total Bilirubin 0.2 L (0.3-1.2) mg/dL AST 19 (8-39) IU/L ALT 31 (9-52) IU/L Alkaline Phosphatase 75 (38-126) IU/L Total Protein 7.2 (6.1-8.0) g/dL Albumin 4.4 (3.5-4.8) g/dL Globulin 2.7 (2.50-4.10) g/dL Albumin/Globulin Ratio 1.60 (1.3-2.0) mg/g TSH 31.5 H (0.2700-4.2000) uIU/mL Free T4 1.46 (0.93-1.71) ng/dL Free T3 pg/mL (2.77-5.27) PG/ML 07/14/17 07/14/17 Range/Units 23:40 23:40 WBC (4.8-10.8) 10^3/uL RBC (4.20-5.40) 10^6/uL Hgb (12.0-16.0) g/dL Hct (37.0-47.0) % MCV (81-99) FL MCH (27-31) PG MCHC (33-37) g/dL RDW Std Deviation (39-50) fL RDW Coeff of Mitchel (11.5-14.5) % Plt Count (140-350) 10*3/uL MPV (7.4-12.2) FL Immature Gran % (Auto) (0-5) % Neut % (Auto) (50-80) % Lymph % (Auto) (10-50) % [place] % (Auto) (5-15) % Eos % (Auto) (0-8) % Baso % (Auto) (0-1) % Immature Gran # (Auto) 10*3/UL Neut # (Auto) 10*3/UL Lymph # (Auto) 10*3/uL [place] # (Auto) (0.3-0.8) 10*3/UL Eos # (Auto) 10*3/UL Baso # (Auto) 10*3/UL WBC Morphology Comment (NORM) Plt Morphology Comment (NORM) RBC Morph Comment (NORM) Sodium (135-145) meq/L Potassium (3.8-5.2) meq/L Chloride (98-112) meq/L Carbon Dioxide (23-33) meq/L Anion Gap (5-20) BUN (7-22) mg/dL Creatinine (0.50-1.20) mg/dL Estimated GFR BUN/Creatinine Ratio (6-20) Glucose (78-110) mg/dL Mean Blood Glucose 146.101 mg/dL Hemoglobin A1c 6.97 H (4.2-6.0) % Calculated Osmolality (267-292) mOsm/kg Calcium (8.7-10.7) mg/dL Magnesium (1.6-2.4) mg/dL Total Bilirubin (0.3-1.2) mg/dL AST (8-39) IU/L ALT (9-52) IU/L Alkaline Phosphatase (38-126) IU/L Total Protein (6.1-8.0) g/dL Albumin (3.5-4.8) g/dL Globulin (2.50-4.10) g/dL Albumin/Globulin Ratio (1.3-2.0) mg/g TSH (0.2700-4.2000) uIU/mL Free T4 (0.93-1.71) ng/dL Free T3 pg/mL 2.48 L (2.77-5.27) PG/ML - Imaging Status: Image Reviewed by Me (Chest x-ray, on my view, negative. CT scan of the head appears negative for acute bleed.) Assessment and Plan - Patient Problems (1) Altered mental status Current Visit: Yes Status: Acute Code(s): R41.82 - Altered mental status, unspecified (2) Hypoglycemia Current Visit: Yes Status: Acute Code(s): E16.2 - Hypoglycemia, unspecified (3) History of cerebrovascular accident Current Visit: Yes Status: Chronic Code(s): Z86.73 - Personal history of transient ischemic attack (TIA), and cerebral infarction without residual deficits (4) Diabetes mellitus, type 2 Current Visit: Yes Status: Chronic Qualifiers: Diabetes mellitus complication status: with hypoglycemia Diabetes mellitus complication detail: without coma Diabetes mellitus long term care phlebotomist insulin use: with residential use Qualified Code(s): E11.649 - Type 2 diabetes mellitus with hypoglycemia without coma; Z79.4 - senior living (current) use of insulin (5) Benign hypertension Current Visit: Yes Status: Chronic (6) Hypercholesterolemia Current Visit: No Status: Chronic Code(s): E78.0 - Pure hypercholesterolemia (7) Hypothyroidism Current Visit: Yes Status: Chronic Code(s): E03.9 - Hypothyroidism, unspecified Qualifiers: Hypothyroidism type: postoperative Qualified Code(s): E89.0 - Postprocedural hypothyroidism (8) Hypercholesterolemia Current Visit: Yes Status: Chronic Code(s): E78.00 - Pure hypercholesterolemia, unspecified - Assessment / Plan Additional Assessment/Plan Details: Admit. Monitor blood sugars before meals and at bedtime and just use traction dose insulin for now. I discussed with dietitian, and I think the patient would be a good candidate for continuous glucose monitoring to determine where her highs and lows are to better determine her regimen for her. It may even be that we can stop insulin at this time and just continue with metformin. Right now, the monitors her checked out, and it may be that we will have to wait a few days and do this on an outpatient basis to get this done. Hold statin for now with confusion/altered mental status. We'll probably need to continue at discharge. IV fluids with a reduced CO2 and increased creatinine. Patient may have a component of mild acute on chronic renal failure. Check electrolytes in the morning and CBC in the morning. Head CT scan was checked to make sure that there was no evidence of acute bleed to explain confusion. Plan above discussed with the patient and her and they agreed. Given altered mental status component I admitted the patient is an inpatient but it may be very well likely that if she can improve greatly over the next 24 hours she might even be able to go home.
[2017-07-16] MEDS: HEPARIN 5000 UNIT/1 ML SUBCUT SCH (00:44)
[2017-07-16 05:02] LABS: BASOPHILS # (AUTO) 0.04 10*3/UL; BASOPHILS % (AUTO) 0.8 % (0-1); EOSINOPHILS # (AUTO) 0.22 10*3/UL; EOSINOPHILS % (AUTO) 4.6 % (0-8); Hematocrit [HCT] 34.8 % (37.0-47.0); LYMPHOCYTES # (AUTO) 1.95 10*3/uL; MEAN CORPUSCULAR HEMOGLOBIN 29.3 PG (27-31); MEAN CORPUSCULAR HGB CONC 31.6 g/dL (33-37); MEAN CORPUSCULAR VOLUME 92.6 FL (81-99); MEAN PLATELET VOLUME 9.6 FL (7.4-12.2); MONOCYTES # (AUTO) 0.53 10*3/UL (0.3-0.8); NEUTROPHILS # (AUTO) 2.08 10*3/UL; RED BLOOD COUNT 3.76 10^6/uL (4.20-5.40)
[2017-07-16 05:15] LABS: PLATELET MORPHOLOGY COMMENT NORMAL MORPHOLOGY (NORM); RBC MORPHOLOGY COMMENT NORMAL MORPHOLOGY (NORM); WBC MORPHOLOGY COMMENT NORMAL MORPHOLOGY (NORM)
[2017-07-16 05:28] LABS: BLOOD UREA NITROGEN 23 mg/dL (7-22); BUN/CREATININE RATIO 19.16 (6-20)
[2017-07-16] MEDS ORDERED: LEVOTHYROXINE 125 MCG TABLET PO SCH (05:30)
[2017-07-16 06:49] VITALS: BP 166/78; RESP 18; TEMP 97.3; O2SAT 94
[2017-07-16] MEDS: Insulin Lispro Flexpen 300 UNIT/3 ML INSULN.PEN SUBCUT SCH (07:10)
--- NOTE | 2017-07-16 07:49 | DCSUMMARY ---
Hospitalization Summary Admit Date: 07/15/2017 Discharge Date: 07/16/17 Hospital Course: Discharge diagnoses 1. Confusion secondary to hypoglycemia improved 2. Diabetes 3. Hypertension 4. History of stroke before 5. History of hypothyroidism 6. Mildly increased conspicuity of slightly coarse opacity in the right upper lung. Question infection or inflammation. Recommend follow-up CT 6-8 weeks Hospital course This is a 77 years old female with medical history significant for history of diabetes, hypertension, hypothyroidism and history of CVA before, she came into the hospital with history of confusion and sweating secondary to hypoglycemia. The night before admission she said she woke up after she gave herself the shots of insulin with sweating, confusion, headache and she checked her sugar, it was 4o she had apple juice and glucose tab although blood sugar went up she still didn't feel right with headache and confusion and because of that she came into the ER and was admitted. Was limited by Dr. Hilliard please see his note. She is normally on insulin 30 units at night in addition to metformin 1000 mg twice a day. She was watched in the hospital she did not need any extra insulin and she was not given her metformin. I saw her on the day of discharge she was much better she wants to go home. Blood sugar numbers were acceptable and blood sugar was 128 on the day I saw her. Her exam was not remarkable, we that she could be discharged home. I did tell her we put her only on metformin for now. Apparently she lost weight, she said like 9 pounds last 2 months. I thought we discharge her only on metformin if her blood sugar more than 200 sustained amaybe she go back on insulin but at a lower dosage may be 10 units of lantus at night instead of 30. Also she need follow-up with endocrinology and with dietitian she may need a continuous blood sugar monitor. The fact that she lost some weight maybe the reason for her hypoglycemia. On the chest x-ray there is Mildly increased conspicuity of slightly coarse opacity in the right upper lung. Question infection or inflammation. Recommend follow-up CT 6-8 weeks per the radiologist. I did explain that to her , she will F/U with her primary for that. Laboratory Results 07/16/17 07/16/17 Range/Units 04:08 04:08 WBC 4.83 (4.8-10.8) 10^3/uL RBC 3.76 L (4.20-5.40) 10^6/uL Hgb 11.0 L (12.0-16.0) g/dL Hct 34.8 L (37.0-47.0) % MCV 92.6 (81-99) FL MCH 29.3 (27-31) PG MCHC 31.6 L (33-37) g/dL RDW Std Deviation 51.3 H (39-50) fL RDW Coeff of Mitchel 15.5 H (11.5-14.5) % Plt Count 259 (140-350) 10*3/uL MPV 9.6 (7.4-12.2) FL Immature Gran % (Auto) 0.2 (0-5) % Neut % (Auto) 43.0 L (50-80) % Lymph % (Auto) 40.4 (10-50) % [place] % (Auto) 11.0 (5-15) % Eos % (Auto) 4.6 (0-8) % Baso % (Auto) 0.8 (0-1) % Immature Gran # (Auto) 0.01 10*3/UL Neut # (Auto) 2.08 10*3/UL Lymph # (Auto) 1.95 10*3/uL [place] # (Auto) 0.53 (0.3-0.8) 10*3/UL Eos # (Auto) 0.22 10*3/UL Baso # (Auto) 0.04 10*3/UL WBC Morphology Comment Normal morphology (NORM) Plt Morphology Comment Normal morphology (NORM) RBC Morph Comment Normal morphology (NORM) Sodium 140 (135-145) meq/L Potassium 5.2 D (3.8-5.2) meq/L Chloride 105 (98-112) meq/L Carbon Dioxide 24 (23-33) meq/L Anion Gap 11 (5-20) BUN 23 H (7-22) mg/dL Creatinine 1.2 (0.50-1.20) mg/dL BUN/Creatinine Ratio 19.16 (6-20) Glucose 158 H (78-110) mg/dL Calculated Osmolality 296.0 H (267-292) mOsm/kg Calcium 10.2 (8.7-10.7) mg/dL Discharge instruction Diet diabetic Activity as tolerated Medications Current Medication(s) 3 Medication Instructions Recorded Confirmed Type Ubidecarenone [Co Q-10] 100 mg PO HS 12/14/13 07/08/17 History metformin 1,000 mg tablet 1,000 mg PO BID #180 tab 03/01/17 07/08/17 Rx metoprolol tartrate 50 mg tablet 25 mg PO BID #90 tab 04/08/17 07/08/17 Rx amlodipine 10 mg tablet 10 mg PO QDAY #90 tab 04/09/17 07/08/17 Rx clopidogrel 75 mg tablet 75 mg PO QDAY #90 tab 04/15/17 07/08/17 Rx atorvastatin 20 mg tablet 20 mg PO QHS #90 tab 05/21/17 07/08/17 Rx levothyroxine 100 mcg tablet 100 mcg PO QDAY #90 tab 05/21/17 07/08/17 Rx ramipril 10 mg capsule 20 mg PO BID #360 cap 05/21/17 07/08/17 Rx pantoprazole 40 mg tablet,delayed 40 mg PO BID #180 tab 06/24/17 07/08/17 Rx release lorazepam 0.5 mg tablet See Label Instructions PO TID PRN 07/11/17 Rx #90 tab Follow-up with the Dr. Dill as scheduled on , follow-up with endocrinology, follow-up with the dietitian Condition at discharge was stable for discharge Exam - Vitals Vital Signs: Vital Signs Temperature 97.3 F Temperature Source Temporal Artery Scan Pulse Rate [Pulse Oximeter] 69 Pulse Rate [Telemetry] 70 Pulse Rate 66 Respiratory Rate 18 Blood Pressure [Left Arm] 166/78 Blood Pressure 104/54 Pulse Ox 94 Oxygen Delivery Method Room Air Height 5 ft 4 in Weight 183 lb 3.2 oz - General General Appearance: No Acute Distress, Cooperative - Head Head Exam: Normal Inspection, Atraumatic - Eye Eye Exam: POSITIVE: Normal Appearance - ENT ENT Exam: POSITIVE: Normal Exam - Neck Neck Exam: Normal Inspection - Respiratory Respiratory Exam: POSITIVE: Clear to Auscultation - Bilaterally - Cardiovascular Cardiovascular Exam: POSITIVE: RRR - GI/Abdominal GI/Abdominal Exam: POSITIVE: Normal Bowel Sounds, Non Tender, Non Distended, Soft, No Organomegaly - Rectal Rectal Exam: POSITIVE: Deferred - External Exam: POSITIVE: Deferred - Extremities Extremities Exam: POSITIVE: Normal Inspection - Back Back Exam: POSITIVE: Normal Inspection - Neurological Neurological Exam: POSITIVE: Alert, Oriented x 3, CN II-XII Intact, No Facial Droop, Speech Intact / Clear, Moves All Extremities Equally - Psychiatric Psychiatric Exam: POSITIVE: Normal Affect - Integumentary Integumentary Exam: POSITIVE: Normal Color
== END 2017-07-16 08:53 | disposition home or self-care (01) | DRG 948 ==
LOC: ER 23:32 → MED/SURG 07-15 00:49
PROVIDERS: ADMIT Family Medicine; ATTEND Family Medicine

== ENCOUNTER 2018-03-20 06:15 | Inpatient (IN) ==
[~2018-03-20 06:15] MED LIST: LIDOCAINE W/ SODIUM BICARB 0.5 ML SYR ONE; LIDOCAINE W/ SODIUM BICARB 0.5 ML SYR SUBD ONE; Lactated Ringers 1,000 ML PRIMARY IV ONE; Nasal Sanitizer POPSWAB ampule 3 AMP (Nozin) PREOP DOSE ENOS SCH; ceFAZolin Inj 2gm (Premix) 2 GM/50 ML BAG IV ONE
[2018-03-20] MEDS ORDERED: KETOROLAC 30 MG/1 ML VIAL ONE (06:22)
[2018-03-20] MEDS ORDERED: KETAMINE 100 MG/1 ML - 5 ML ONE (06:22)
[2018-03-20] MEDS ORDERED: LIDOCAINE MPF 2% - 5 ML (20 MG/1 ML) ONE (06:22)
[2018-03-20] MEDS ORDERED: PROPOFOL 10 MG/1 ML (200 MG/20 ML) VIAL IV ONE (06:22)
[2018-03-20] MEDS ORDERED: MIDAZOLAM 5 MG/1 ML ONE (06:23)
[2018-03-20] MEDS ORDERED: fentaNYL Inj 250 MCG/5 ML VIAL ONE (06:23)
[2018-03-20] MEDS ORDERED: DEXAMETHASONE PF 10 MG/1 ML VIAL ONE (06:23)
[2018-03-20] MEDS ORDERED: Acetaminophen 1000mg Inj 1,000 MG/100 ML VIAL IV ONE (06:23)
[2018-03-20] MEDS ORDERED: CITRIC ACID/SODIUM CITRATE 30 ML CUP PO ONE (06:24)
[2018-03-20] MEDS ORDERED: Propofol 1,000 MG/100 ML VIAL IV ONE ×2 (06:24→11:41)
[2018-03-20] MEDS ORDERED: SUCCINYLCHOLINE CHLORIDE 20 MG/1 ML - 10 ML ONE (06:24)
[2018-03-20] MEDS ORDERED: FAMOTIDINE 20 MG/2 ML VIAL IVP ONE (06:24)
[2018-03-20] MEDS ORDERED: ROCURONIUM 10 MG/1 ML - 5 ML VIAL IVP ONE (06:24)
[2018-03-20] MEDS ORDERED: Sodium Chloride 0.9% 250 ML ONE ×2 (06:28→06:34)
[2018-03-20] MEDS ORDERED: Vancomycin Inj 1gm vial ONE ×2 (06:31→07:30)
[2018-03-20] MEDS ORDERED: REMIFENTANIL HCL 2 MG VIAL IV ONE ×2 (06:33→10:28)
[2018-03-20] MEDS ORDERED: HYDROmorphone 2 MG/1 ML ONE ×2 (06:45→09:45)
[2018-03-20] MEDS ORDERED: ePHEDrine Inj 50 MG/ML AMP ONE ×2 (06:46→10:22)
[2018-03-20] MEDS ORDERED: Sodium Chloride 0.9% vial 10 ML ONE (07:30)
[2018-03-20] MEDS ORDERED: BACITRACIN 50,000 UNIT VIAL IRRIG ONE (07:31)
[2018-03-20] MEDS ORDERED: THROMBIN (BOVINE) 20,000 UNIT KIT TOPICAL ONE ×2 (07:31→12:27)
[2018-03-20] MEDS ORDERED: Lactated Ringers 1,000 ML PRIMARY IV ONE ×2 (07:53→11:52)
[2018-03-20] MEDS ORDERED: fentaNYL Inj 100 MCG/2 ML VIAL ONE (10:27)
[2018-03-20] MEDS ORDERED: Zolpidem Tab 5 MG TAB PO PRN (13:23)
[2018-03-20] MEDS ORDERED: ONDANSETRON 4 MG/2 ML VIAL IVP PRN (13:23)
[2018-03-20] MEDS ORDERED: MORPHINE SULFATE 2 MG/1 ML IVP PRN (13:23)
[2018-03-20] MEDS ORDERED: Ondansetron ODT Tab 4 MG TAB PO PRN (13:23)
[2018-03-20] MEDS ORDERED: HYDRALAZINE 20 MG/1 ML IVP PRN (13:23)
[2018-03-20] MEDS ORDERED: CYCLOBENZAPRINE 10 MG TABLET PO PRN (13:23)
[2018-03-20] MEDS ORDERED: ACETAMINOPHEN 325 MG TABLET PO PRN (13:23)
[2018-03-20] MEDS ORDERED: LABETALOL 20 MG/4 ML (5 MG/1 ML) SYRINGE IVP PRN (13:23)
[2018-03-20] MEDS ORDERED: D5-1/2NS + 20mEq KCL 1,000 ML PRIMARY IV SCH (13:30)
--- NOTE | 2018-03-20 14:22 | CRNA.PROGR ---
Anesthesia Time - Procedure/Recovery Time Start Date: 03/20/18 Anesthesia : Time In: 08:49 Anesthesia : Time Out: 13:49 - Other Weight: 83.007 kg Height: 8 ft 4 in Body Mass Index (BMI): 12.9 Physical Status: P3 Anesthesia Type: General Anesthesia : ET (prone position)
[2018-03-20] MEDS: HYDROcodone-APAP 5 MG -325 MG TABLET PO PRN ×2 (15:59→20:45)
[2018-03-20] MEDS: DIAZEPAM 10 MG/2 ML (5 MG/1 ML) CARPUJECT IVP PRN ×2 (16:00→23:33)
[2018-03-20] MEDS: ceFAZolin Inj 1 GM in Sodium Chloride 0.9% 100 ML IV SCH (18:16)
[2018-03-20] MEDS ORDERED: LORazepam 1 MG TABLET PO PRN (19:22)
--- NOTE | 2018-03-20 19:27 | CONSULT ---
Consult Note - Consult Consult Date: 03/20/18 Reason for Consult: Other Requesting Physician: Dr. Pierre Primary Care Provider: Esteban Dill MD - History of Present Illness History of Present Illness: This is a 77 years old female with medical history significant for history of diabetes, hypertension, history of previous stroke and anxiety who came in today to have lumbar fusion surgery for degenerative disc disease and was done by Dr. Pierre today. The hospitalist service were consulted for management of medical issues. Patient is denying symptoms. There is no chest pain, no shortness of breath. There is no significant back pain. She said she took her blood pressure medication this morning. She is off the Plavix. She had her insulin last night. Past Medical History Medical History: 1. Cerebrovascular disease with history of stroke in the past. 2. Postsurgical hypothyroidism. 3. Diabetes mellitus type II well controlled. 4. Hypertension. 5. Hypercholesterolemia. 6. History of renal failure, remote Surgical History: 1. Appendectomy. 2. Right knee scope. 3. thyroidectomy. 4. Left carotid endarterectomy Pertinent Family History: Significant for heart disease and diabetes. 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 Does not smoke or drink currently. Spends time in [employer] and in [employer]. Quit smoking quite a while back. Tobacco Use: Former Smoker In the Past 12 Months, Have Used or Abuse Any of the Following Substance: None Alcohol Use: None Review of Systems - Review of Systems All Systems: Reviewed & No Additional Complaints Except as Stated Medication / Allergies Home Medications: Home Medications 3 Medication Instructions Recorded Confirmed Type clopidogrel 75 mg tablet 75 mg PO QDAY #90 tab 04/15/17 03/20/18 Rx pantoprazole 40 mg tablet,delayed 40 mg PO BID #180 tab 06/24/17 03/20/18 Rx release metformin 1,000 mg tablet 1,000 mg PO BID #180 tab 08/15/17 03/20/18 Rx metoprolol tartrate 50 mg tablet 25 mg PO BID #90 tab 08/15/17 03/20/18 Rx ramipril 10 mg capsule 20 mg PO BID #360 cap 08/15/17 03/20/18 Rx levothyroxine 125 mcg tablet 125 mcg PO QAM #90 tab 09/17/17 03/20/18 Rx lorazepam 0.5 mg tablet 0.5 mg PO TID PRN #90 tab 09/17/17 03/20/18 Rx hydrocodone 5 mg-acetaminophen 325 1 tab PO Q4-6H PRN #15 tab 10/03/17 03/20/18 Rx mg tablet Pen Needle, Diabetic [Ulticare Pen 0 amp .ROUTE .MEDSUPPLY 11/21/17 03/20/18 History Needle] amlodipine 10 mg tablet 10 mg PO QDAY #90 tab 12/19/17 03/20/18 Rx insulin syringe-needle U-100 0.3 See Dose Instructions .ROUTE 01/22/18 03/10/18 Rx mL 31 gauge x 10/16" .MEDSUPPLY #50 ea atorvastatin 20 mg tablet 20 mg PO QHS #90 tab 03/13/18 03/20/18 Rx Insulin Glargine,Hum.rec.anlog 20 unit SUBCUT QHS 03/20/18 03/20/18 History [Basaglar Kwikpen U-100] Allergies/Adverse Reactions: Allergies 3 Allergy/AdvReac Type Severity Reaction Status Date / Time iodine [Iodine] Allergy Severe Anaphylaxis Verified 03/20/18 15:09 sitagliptin phosphate AdvReac Severe KIDNEY Verified 03/20/18 15:09 [From Januvia] FAILURE SHELLFISH Allergy Severe Anaphylaxis Uncoded 03/20/18 15:09 Exam - Vitals Vital Signs: Vital Signs Temperature 97.6 F Temperature Source Temporal Artery Scan Pulse Rate [Pulse Oximeter] 102 Pulse Rate 71 Respiratory Rate 16 Blood Pressure [Left Arm] 128/59 Blood Pressure 178/75 Pulse Ox 95 Oxygen Flow Rate 0.5 Oxygen Delivery Method Nasal Cannula Height 5 ft 4 in Weight 183 lb - General General Appearance: No Acute Distress, Cooperative, Obese - Head Head Exam: Normal Inspection - Eye Eye Exam: POSITIVE: Normal Appearance - ENT ENT Exam: POSITIVE: Normal Exam - Neck Neck Exam: Normal Inspection - Respiratory Respiratory Exam: POSITIVE: Clear to Auscultation - Bilaterally - Cardiovascular Cardiovascular Exam: POSITIVE: RRR - GI/Abdominal GI/Abdominal Exam: POSITIVE: Normal Bowel Sounds, Non Tender, Non Distended, Soft - Rectal Rectal Exam: POSITIVE: Deferred - External Exam: POSITIVE: Deferred - Extremities Extremities Exam: POSITIVE: Normal Inspection Additional Extremities Exam Details: SCDs applied - Neurological Neurological Exam: POSITIVE: Alert, Oriented x 3, No Facial Droop, Speech Intact / Clear - Psychiatric Psychiatric Exam: POSITIVE: Normal Affect Results - Labs CBC and BMP: 03/20/18 07:00 Assessment and Plan - Patient Problems (1) Diabetes mellitus, type 2 Current Visit: No Status: Chronic Comment: We'll continue with her previous medication continue the metformin and the Lantus. She said she take 25 Unitd of the Lantus I think will put her on 20 units tonight. 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 Pierre Code(s): Z98.1 - Arthrodesis status
[2018-03-20] MEDS ORDERED: Sodium Chloride 0.9% 1,000 ML PRIMARY IV SCH (20:00)
[2018-03-20] MEDS: ATORVASTATIN 20 MG TABLET PO SCH (20:44)
[2018-03-20] MEDS: Metoprolol TARTRATE Tab 50 MG TAB PO SCH (20:45)
[2018-03-20] MEDS: metFORMIN 500 MG TABLET PO SCH (20:47)
[2018-03-20] MEDS: RAMIPRIL 10 MG CAPSULE PO SCH (20:47)
[2018-03-20] MEDS: PANTOPRAZOLE 40 MG TABLET PO SCH (20:48)
[2018-03-20] MEDS: Insulin Glargine SoloStar Inj 100 UNIT/ML INSULN.PEN SUBCUT SCH (20:48)
[2018-03-21] MEDS: HYDROcodone-APAP 5 MG -325 MG TABLET PO PRN ×4 (01:38→18:47)
[2018-03-21] MEDS: ceFAZolin Inj 1 GM in Sodium Chloride 0.9% 100 ML IV SCH (01:39)
--- NOTE | 2018-03-21 04:46 | OPNOTE.NEU ---
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 Lumbar decompression with complete facetectomy, 20952, 14722 2. Inner body Arthrodesis, 38229, 12608 3. Inner body structural bio-mechanical insert and rotate allograft, [id number] 4. Segmental Pedicle screw Instrumentation, 61781 5. Inner transverse fusion; (23629, 70044) 6. Bone graft preparation: A. Capitan and preparation of autologous local bone, same incision, B. Capitan of autologous iliac crest morselized bone, separate incision, C. Bone marrow aspirate, D. Addition of osteopromotive calcium compound and DBM, 7. Intra operative microsurgical technique 8. Intra operative fluoroscopic navigation, [id number] 9. Continuous intra operative neural monitoring, motor and sensory Surgeon(s): Rock Pierre MD Garage Attendant(s): JIL Rios Anesthesia: General Anesthesia Anesthesiologist / COMMERCIAL LOAN COLLECTION OFFICER: Lesli Leonard CRNA] Brief Findings: Severe neural compression both levels. Procedure(s): We discussed the procedure, risks, advantages and disadvantages of surgical intervention at length. To prevent further pain, disability and potential progression of neurologic deficits, the patient would like to proceed with surgery. Introduction: After obtaining informed consent, careful consideration of the pre -operative studies and evaluation, the patient asked to proceed with surgery. The patient was taken to the operating room, given an anesthetic, positioned and prepared for surgery. All pressure points were meticulously padded and great care was taken to insure the patient was appropriately positioned to avoid any abnormal strain on the extremities or any other area. The operative region was prepared with iodine solution and isolated aseptically using routine sterile draping. Position / Approach: The patient was placed in the prone position such that a posterior approach could be taken to the lumbar spine. EXPOSURE: A midline incision was opened sharply and extended slightly cephalad and caudad so as to incorporate the abnormal levels of the patient's spine using the fluoroscope for visualization and planning. Dissection was carried with electrocautery through the subcutaneous tissues then subperiosteally along the spinous processes then lamina laterally to the lateral facet joints. A self retaining retractor was inserted exposing the spine from L3 to L5. DECOMPRESSION: As the spine was exposed, it was clear that the involved joints were markedly incompetent. The joints were removed medial to lateral confirming there was foraminal stenosis from herniated disk and facet hypertrophy which extended out into the foramen laterally. This was clearly a component of the patient's pain. To adequately decompress the levels, both facets bilaterally were completely removed at both levels. The decompression was much more extensive then would be required for placement of the posterior arthrodesis alone. Both the traversing as well as the exiting nerve roots were decompressed at each level. There was herniated disk beneath the thecal sac and removal was facilitated by removal of the joints as well as through the use of down biting curettes which resulted in minimal manipulation of the thecal sac. Annulotomies were placed bilaterally and disk distractor's were placed in the disk space. While distracting, a radical discectomy was performed bilaterally. The epidural space was explored extensively also to confirm no further pressure was present on any of the exiting or traversing neural elements. The lamina were also removed in their entirety from both levels. INNER BODY ARTHRODESIS (2-levels): At both of the exposed levels, annulotomies were placed sharply bilaterally and insert and rotate distractor's were advanced which were progressively larger into the disc space until the level became less mobile in a stepwise manner. Using curettes and rongeurs at both levels disc material was removed taking care to avoid disruption of the endplates. The endplates were carefully scraped of cartilaginous tissue. Insert and rotate machined structural bone grafts were placed bilaterally at both levels. Between the grafts, the patient's "bone graft" as described below was placed. This mixture of graft which was placed medial to the allograft structural spacers was also placed lateral to the bone spacers within the disk space. The bone spacers were countersunk appropriately using the fluoroscope for visualization. HARVEST / PREPARATION of BONE GRAFT: The "bone graft" was prepared from the patient's own bone derived from the left hip collected by curetting bone from the hip through a separate slab incision(). This morselized bone was admixed with bone marrow aspirate also obtained from the hip (). Autologous local bone which was removed during the decompression through the same incision used for the fusion was stripped of surrounding soft tissues, morselized (36) and mixed with osteopromotive calcium compound as well as allograft demineralized bone matrix (30), and this was combined with the previously described hip graft and concentrated bone marrow aspirate to form the "bone graft." POSTERIOR SEGMENTAL INSTRUMENTATION: The pedicles of above and below the abnormal discs were then identified under direct vision as well as using the fluoroscope for visualization. The pedicles were probed and tapped and pedicle screws were advanced, which were individually tested using motor electrical stimulation/monitoring and were identified to have appropriate impedances and no evidence of any contact with the surrounding neural elements. Screw lengths were selected by using a probe to sound the depth of the holes which had been tapped to determine the distance to the border of the anterior vertebral bodies. Having placed pedicle screws, they were interconnected with rods, and cross-link structural stabilizer(s) were placed between the rods. INNER TRANSVERSE FUSION: Attention was directed to the lateral aspect of the spine. The transverse processes above and below the level were eburnated using a high speed drill equipped with a nii bur. Between this region of bone, the patient's own bone, described previously as "bone graft mixture", consisting of allograft, demineralized bone matrix, calcium compound, bone marrow aspirate, as well as morselized graft from the hip were placed between the transverse processes. NEED FOR RESEARCH ASSOCIATE PROFESSOR: Victoriano Lam PA-C, was instrumental throughout the operation to assist with exposure of the neural structures and protect them as the bony elements were removed. He was also instrumental during placement of the implant(s) which often takes more than two hands to perform safely and efficiently. OTHER TOOLS USED / UTILITY: All manipulation of the neural elements was performed using the microscope for visualization. As well, the fluoroscope was used to confirm the levels as indicated as well as to assist during implant placement and later to assess the patient's spinal alignment. There were no intra operative complications. Motor and sensory monitoring was performed throughout the procedure by a certified monitoring licensed chemical spray technician in the room in communication with a remote monitoring physician and no abnormal neurological findings were encountered. CLOSURE: Thereafter, the wound was irrigated with copious amounts of antibiotic impregnated saline solution. Immaculate hemostasis was achieved using thrombin soaked Gelfoam, bone wax along the bony margins, as well as electrocautery. The wound was then closed in anatomical layers using Vicryl suture in the subcutaneous tissues followed by nikki in the skin. Estimated blood loss was less than 100 cc and none was replaced. Following the procedure the patient will be returned to the supine position, extubated then transferred to the recovery room, anticipating them to be in stable condition as compared to pre- surgically. Estimated Blood Loss: 100 Operative hemorrhage? Yes, expected amount. Drains: Hemovac Condition: Good Complications: None Authenticated by Dr. Pierre On Production
[2018-03-21] MEDS: LEVOTHYROXINE 125 MCG TABLET PO SCH (04:58)
[2018-03-21] MEDS: DOCUSATE 100 MG CAPSULE PO PRN ×2 (05:42→18:47)
[2018-03-21] MEDS: Insulin Lispro Flexpen 300 UNIT/3 ML INSULN.PEN SUBCUT SCH ×3 (07:33→16:59)
--- NOTE | 2018-03-21 08:36 | NEURO.PROG ---
Subjective Post Op Day: 1 Pain Management: PO Cordon Catheter: Yes Flatus: Yes Diet: Diabetic diet. Ambulating: Yes Date of Service: 03/21/18 Time of Service: 08:15 Objective : Data - Labs CBC and BMP: 03/20/18 07:00 - Vital Signs Vital Signs and I&O: Vital Signs - Last Taken Temperature 97.1 F 03/21/18 05:00 Pulse Rate 86 03/21/18 07:00 Respiratory Rate 18 03/21/18 05:00 Blood Pressure 135/60 03/21/18 05:00 Pulse Ox 96 03/21/18 07:00 Intake and Output (24hr x 4 totals) 03/19/18 03/20/18 03/21/18 03/22/18 05:59 05:59 05:59 05:59 Intake Total 3623 / 3623 480 / 480 Output Total 2610 / 2610 Balance 1013 / 1013 480 / 480 Objective : Exam - General General Appearance: No Acute Distress, Cooperative - Head Head Exam: Normal Inspection - Eye Eye Exam: Normal Appearance - ENT ENT Exam: Normal Exam - Neck Neck Exam: Full ROM - Respiratory Respiratory Exam: Breathing Non Labored - Cardiovascular Additional Cardiovascular Details: Regular rate. - GI/Abdominal GI/Abdominal Exam: Normal Bowel Sounds, Non Tender - Rectal Rectal Exam: Deferred - External Exam: Deferred - Extremities Extremities Exam: Normal Inspection, Full ROM - Back Back Exam: Normal Inspection - Neurological Neurological Exam: Alert, Oriented x 3 Additional Neurological Exam Details: slow gait. - Psychiatric Psychiatric Exam: Normal Affect, Normal Mood - Integumentary Additional Integumentary Exam Details: Intact lumbar surgical wound with surgical drain. Assessment and Plan - Patient Problems (1) Status post lumbar spinal fusion Current Visit: Yes Status: Acute Code(s): Z98.1 - Arthrodesis status (2) Status post lumbar spinal fusion Current Visit: Yes Status: Acute Code(s): Z98.1 - Arthrodesis status - Assessment / Plan Additional Assessment/Plan Details: She is post op day 1 and doing well. She has started walking. She is happy with her current care and surgical procedure. Continue to monitor surgical drain output. Remove cordon catheter today.
[2018-03-21] MEDS: metFORMIN 500 MG TABLET PO SCH ×2 (08:48→21:06)
[2018-03-21] MEDS: Metoprolol TARTRATE Tab 50 MG TAB PO SCH ×2 (08:48→21:07)
[2018-03-21] MEDS: PANTOPRAZOLE 40 MG TABLET PO SCH ×2 (08:48→21:06)
[2018-03-21] MEDS: RAMIPRIL 10 MG CAPSULE PO SCH ×2 (08:48→21:06)
--- NOTE | 2018-03-21 12:39 | CRNA.PROGR ---
Post Anesthesia Phase II - Post Anesthesia Phase II Temperature: 98 F Pulse Rate: 71 Respiratory Rate: 20 Blood Pressure: 178/75 Pulse Ox: 94
--- NOTE | 2018-03-21 12:42 | CRNA.PROGR ---
Anesthesia Note - Progress Notes Anesthesia Progress Note: Sitting up in a chair visiting on the phone with her sister. Cheerful, pleasant. States that her pain is controlled. Denies nausea, headache or sore throat. Urinary catheter is out. She's able to void. She's pleased with care. No apparent anesthetic difficulty.
--- NOTE | 2018-03-21 13:20 | PDOC(PROG) ---
Interval History: Patient feels great no chest pain nausea or vomiting Objective : Data - Labs CBC and BMP: 03/20/18 07:00 Objective : Exam - Head Head Exam: Normal Inspection, Normocephalic, Atraumatic - ENT ENT Exam: Normal Exam, Normal External Ear Exam, Normal Oropharynx, TM's Normal Bilaterally, Mucous Membranes Moist - Respiratory Respiratory Exam: Clear to Auscultation - Bilaterally, Breathing Non Labored, Normal To Percussion, Normal to Percussion and Palpation - Cardiovascular Cardiovascular Exam: RRR, No Murmur, No Clicks, No Gallops, No Rubs, PMI Non- Displaced - GI/Abdominal GI/Abdominal Exam: Normal Bowel Sounds, Non Tender, Non Distended, Soft, No Masses, No Hepatomegaly, No Splenomegaly, No Organomegaly Assessment and Plan - Patient Problems (1) Diabetes mellitus, type 2 Current Visit: No Status: Chronic Comment: Stable at present time continue current medications no changes Qualifiers: Diabetes mellitus ad terminal makeup operator insulin use: with ad terminal makeup operator use Diabetes mellitus complication status: with hypoglycemia Diabetes mellitus complication detail: without coma Qualified Code(s): E11.649 - Type 2 diabetes mellitus with hypoglycemia without coma (2) Benign hypertension Current Visit: No Status: Chronic Comment: Stable at present time continue current meds (3) Hyperlipidemia Current Visit: No Status: Chronic Onset Date: 12/31/16 Code(s): E78.5 - Hyperlipidemia, unspecified (4) Status post lumbar spinal fusion Current Visit: Yes Status: Acute Comment: Defer to Dr. Pierre for pain control and postop care once discharged Code(s): Z98.1 - Arthrodesis status
[2018-03-21 13:48] LABS: BLOOD UREA NITROGEN 25 mg/dL (7-22); BUN/CREATININE RATIO 19.23 (6-20); SERUM ALBUMIN 3.9 g/dL (3.5-4.8)
--- NOTE | 2018-03-21 15:11 | OTI REPORT ---
Thank you for the referral of Julia Viveros. She was seen on 03/21/18 for an occupational therapy inpatient evaluation. SUBJECTIVE: The patient is a 77-year-old female who had a fusion completed yesterday by Dr. Pierre. The patient does live here in [place] with her . She does have stairs to get into her home. She reports that they do have a bathtub with a seat already installed as well as a high rise toilet seat in their home. PAST MEDICAL HISTORY: Past medical history can be found in the patient's medical record. OBJECTIVE FINDINGS: Bed mobility: The patient was able to complete bed mobility with contact guard assist and education to follow precautions. Activities of daily living: The patient was educated on donning and doffing socks with a club room attendant and sock aide. The patient did completed this after education with mod independence. The patient still had a drain tube, so we did not attempt any upper extremity or lower extremity full dressing at this time. Ambulation: The patient was able to functionally ambulate approximately 300 feet with stand by assist only for safety. The patient did well with a front wheeled walker. ASSESSMENT: The patient is doing well. She was issued a club room attendant, sock aide, and bath sponge. This afternoon we will try a dressing session. If the patient performs this, the patient will be discharged. Occupational Therapy Goals: To be met by discharge from inpatient: Patient will be able to complete full body dressing with mod independence using adaptive equipment and following precautions. TREATMENT PLAN: Patient will be seen B.I.D during the week and one time per day over the weekend as an inpatient to address the above goals and objectives. INITIAL TREATMENT: Treatment today consisted of the initial evaluation. The patient was educated on her precautions of no bending/lifting/twisting. JAMES
--- NOTE | 2018-03-21 15:31 | OT PM DAY ---
Diagnosis : Cervical Fusion PM - Occupational Therapy S: The patient reports she is a little nervous about log rolling. O: Today the patient was able to practice log rolling out of bed; however, she was twisting slightly. The therapist demonstrated how to log roll appropriately and gave some tips such as keeping her arm away from the bed stabilized when she moves in and out of bed. The patient was able to complete this with a lot less pain. We went over adaptive equipment for dressing. The patient was able to don and doff socks with the telegraph office telephone clerk and the sock aide. She was instructed to use this equipment for lower extremity dressing. A: The patient is doing well with this component. P: Patient will be discharged from occupational therapy as she has met all goals. JAMES
--- NOTE | 2018-03-21 15:54 | PT.PROG ---
Progress Note Progress Note: S: Patient states she is pleased with her surgery. She reports she is sore. O: Patient ambulated 150ft around nurses station with standby assist of one. She did not have any SOB, and didn't appear to be in any distress or discomfort. A: Patient is motivated during therapy today. She ambulated with normal gait pattern, but shortened stride length. She will benefit from continued skilled intervention prior to discharge. P: Patient will be seen twice a day during the week and once over the weekend until discharge.
[2018-03-21] MEDS: ATORVASTATIN 20 MG TABLET PO SCH (21:07)
[2018-03-21] MEDS: Insulin Glargine SoloStar Inj 100 UNIT/ML INSULN.PEN SUBCUT SCH (21:07)
[2018-03-22] MEDS: HYDROcodone-APAP 5 MG -325 MG TABLET PO PRN ×3 (01:16→09:42)
[2018-03-22] MEDS: LEVOTHYROXINE 125 MCG TABLET PO SCH (05:19)
[2018-03-22 06:49] VITALS: O2SAT 92
[2018-03-22] MEDS: Insulin Lispro Flexpen 300 UNIT/3 ML INSULN.PEN SUBCUT SCH (06:49)
[2018-03-22 08:25] VITALS: BP 146/65; RESP 18; TEMP 98.9
[2018-03-22] MEDS: metFORMIN 500 MG TABLET PO SCH (09:02)
[2018-03-22] MEDS: PANTOPRAZOLE 40 MG TABLET PO SCH (09:03)
[2018-03-22] MEDS: RAMIPRIL 10 MG CAPSULE PO SCH (09:03)
[2018-03-22] MEDS: Metoprolol TARTRATE Tab 50 MG TAB PO SCH (09:03)
[2018-03-22] MEDS ORDERED: Sodium Chloride 0.9% 1,000 ML IV SCH (09:30)
--- NOTE | 2018-03-22 10:12 | PT.PROG ---
Progress Note Progress Note: S. pt reported doing fine and hoping to go home today. She did report some pain because she did not want to take the medicicne but then decided she should do so regularly. She was encourages to do this. O. Pt was assisted and educated in proper log roll technique for in and out of bed. She was able to do so with less than Min Assist to get one foot back in the bed on top end. She ambulated with standard walker 125 feet to stairs where she performed 3 stairs to ascend and descend using right hand rail and walker on the left. She was able to do so with CGA for safety. She then returned to her room via standard walker and CGA. Bed mobility was labored to position herself in the center of the bed once she got into it. She was able to do it with hand held out for her to use for leverage. This was demonstrated to the and he was able to do a correct return demonstration. Elpidio. Wilmer is doing well and is cleared for discharge.Her spouse was concerned and wanted training to help her get in and out of bed and for bed mobility. He stated the mattress at home would be easier for her to get in and out of then the hospital bed and was confident they would do fine. He is very involved and concerned . She has support of spouse and son, if needed, after discharge. P. cont POC
[2018-03-22] MEDS ORDERED: HYDROcodone-APAP 10 MG-325 MG TABLET PO PRN (10:20)
[2018-03-22 10:55] LABS: BLOOD UREA NITROGEN 27 mg/dL (7-22); SERUM ALBUMIN 3.8 g/dL (3.5-4.8)
--- NOTE | 2018-03-22 17:18 | NEURO.DC ---
Discharge Summary Admit Date: 03/20/18 Discharge Date: 03/22/18 Admitting Diagnosis: spondylosis with radiculopathy Lumbar Discharge Diagnosis: spondylosis with radiculopathy Lumbar Primary Surgery and Date: L3/4 and L4/5 PLIF 03/20/2018 Hospital Course: This is a 77 years old female with medical history significant for history of diabetes, hypertension, history of previous stroke and anxiety was admitted for lumbar decompression and fusion surgery for spondylosis with radiculopathy from degenerative disc disease. Pre-operatively, the patient had increasingly severe low back and RLE radiating pain with N/T of the R medial thigh which began after "jumping off a curb" some months before. The pain would be significantly increased by walking and could be relieved somewhat by resting or bending forward. She failed all conservative therapies attempted. Patient underwent L3/4 and L4/5 PLIF and tolerated procedure very well. She was aware of the immediate relief of her R leg symptoms and relief of the pre-op back pain when she began walking post-op. Initially, she was refusing all analgesia for her surgical/incisional pain but came to understand the importance of treating her acute surgical pain. She was discharged on the 2nd post-op day in good condition. Exam - Vitals Vital Signs: Vital Signs Temperature 98.9 F Temperature Source Temporal Artery Scan Pulse Rate [Pulse Oximeter] 87 Pulse Rate 71 Respiratory Rate 18 Blood Pressure [Left Arm] 146/65 Blood Pressure 178/75 Pulse Ox 92 Oxygen Flow Rate 1 Oxygen Delivery Method Room Air Height 5 ft 4 in Weight 187 lb 6.4 oz - General General Appearance: No Acute Distress Additional General Exam Details: very comfortable - Respiratory Respiratory Exam: POSITIVE: Breathing Non Labored (normal excursion) - GI/Abdominal GI/Abdominal Exam: POSITIVE: Non Distended - Back Additional Back Exam Details: dressing/wound clean dry and intact - Neurological Neurological Exam: POSITIVE: Alert, Oriented x 3, Speech Intact / Clear, Moves All Extremities Equally - Psychiatric Psychiatric Exam: POSITIVE: Normal Affect, Normal Mood
--- NOTE | 2018-03-24 11:00 | PTI REPORT ---
Thank you for the referral of Julia Viveros. She was seen on 03/21/18 for an inpatient evaluation status post lumbar fusion. SUBJECTIVE: The patient is a 77-year-old female who underwent a lumbar fusion yesterday. The patient states she is doing pretty well this morning and she has been up with nursing staff a few times and she is looking forward to getting up and moving more. The patient reports a pain level of 1/10 on the verbal analog scale (0=no pain, 10=worst pain) at rest. The patient states that she lives here in [place] with her . She has two to three stairs to get into her house. Everything that she needs to access is on one level. She states that they do have stairs into the basement, but she does not go down there often. She denies use of an assistive device prior to surgery and denies any falls over the last three months. The patient reports that prior to her surgery she was having difficulties with right thigh numbness over the past few years and pain into the left lower extremity. PAST MEDICAL HISTORY: Past medical history can be found in the patient's medical record. OBJECTIVE FINDINGS: General observations: The patient was alert and oriented to setting upon the therapist's arrival. The patient was supine in bed with head of bed elevated. She did have an IV and a Toussaint in place and was on one liter of oxygen. She also did have a drain in place. Bed mobility: The patient was able to move from a supine to seated edge of bed position and was instructed on how to properly perform a log roll. Once sitting edge of bed the patient denied any lightheaded or dizziness and demonstrated good seated edge of bed balance. The patient was educated on her precautions for status post lumbar fusion to include no bending, lifting, or twisting along with the use of the LSO brace whenever the patient is up. The patient was also instructed to log roll into and out of bed and was educated on gentle nerve glides. Transfers: After sitting edge of bed for a couple of minutes, the patient was able to transfer from a seated to standing position with stand by assist x1 for safety. In the standing position her LSO brace was placed in the proper position and a gait belt was also placed around the patient. Ambulation: The patient ambulated 150 feet with a front wheeled walker that was issued and fit by PT. The patient stated it felt very good to get up and walk around and did very well with the front wheeled walker. ASSESSMENT: The patient has good rehab potential. Problem List: Status post lumbar fusion and we need to ensure she is safe to return home Short-Term Goals: To be met by discharge from inpatient: Patient will be able to transfer from bed to stand safely and independently and demonstrate how to properly perform a log roll. Patient will be able to don and doff her LSO brace correctly and independently. Patient will be able to ambulate at least 150 feet with front wheeled walker safely and independently. Patient will be able to ascend and descend at least 5 stairs with her front wheeled walker correctly and independently. Long-Term Goals: To be met following discharge from inpatient: Patient may be seen by outpatient physical therapy if deemed necessary upon time of discharge. TREATMENT PLAN: Patient will be seen B.I.D during the week and one time per day over the weekend as an inpatient to address the above goals and objectives. INITIAL TREATMENT: Treatment today consisted of the initial evaluation and one unit of functional activity. Following treatment the patient transferred to her chair where she was left with call light within reach and chair alarm set. JAMES
== END 2018-03-22 11:01 | disposition home or self-care (01) | DRG 460 ==
LOC: OPS 06:15 → MED/SURG 14:57
PROVIDERS: ADMIT Neurological Surgery; ATTEND Neurological Surgery

== ENCOUNTER 2018-03-24 03:21 | Observation (INO) ==
[2018-03-24 05:54] LABS: BASOPHILS # (AUTO) 0.01 10*3/UL; BASOPHILS % (AUTO) 0.1 % (0-1); EOSINOPHILS # (AUTO) 0 10*3/UL; EOSINOPHILS % (AUTO) 0 % (0-8); Hematocrit [HCT] 28.2 % (37.0-47.0); Hemoglobin [HGB] 9.1 g/dL (12.0-16.0); MEAN CORPUSCULAR HGB CONC 32.3 g/dL (33-37); MEAN CORPUSCULAR VOLUME 89.8 FL (81-99); MEAN PLATELET VOLUME 8.7 FL (7.4-12.2); MONOCYTES # (AUTO) 0.93 10*3/UL (0.3-0.8); MONOCYTES % (AUTO) 9.1 % (5-15); NEUTROPHILS # (AUTO) 8.06 10*3/UL; NEUTROPHILS % (AUTO) 78.8 % (50-80); RED BLOOD COUNT 3.14 10^6/uL (4.20-5.40)
[2018-03-24 05:58] LABS: PLATELET MORPHOLOGY COMMENT NORMAL MORPHOLOGY (NORM); RBC MORPHOLOGY COMMENT NORMAL MORPHOLOGY (NORM); WBC MORPHOLOGY COMMENT NORMAL MORPHOLOGY (NORM)
[2018-03-24 06:02] LABS: BLOOD UREA NITROGEN 22 mg/dL (7-22); BUN/CREATININE RATIO 18.33 (6-20)
[2018-03-24] MEDS ORDERED: MORPHINE SULFATE 4 MG/1 ML IVP ONE (06:33)
--- NOTE | 2018-03-24 07:20 | DI ---
EXAM: CT Lumbar Spine Without Intravenous Contrast CLINICAL HISTORY: BACK PAIN TECHNIQUE: Axial computed tomography images of the lumbar spine without intravenous contrast. COMPARISON: Correlated with the earlier radiographs. FINDINGS: Evidence of recent lumbar spine surgery with transpedicular screws and posterior fixation rods at the L3-L5 levels. Hardware appears well seated. Intervertebral disc spacers noted. Suboptimal evaluation for epidural fluid collections. No malalignment. Arthritic changes in the sacroiliac joints. IMPRESSION: Postsurgical changes at L3-L5 levels. The hardware appears well seated. Suboptimal evaluation for epidural fluid collections due to significant artifact. Cannot exclude underlying infection or hematoma.
--- NOTE | 2018-03-24 07:30 | DI ---
EXAM: XR Lumbar Spine, 2 or 3 Views CLINICAL HISTORY: BACK PAIN TECHNIQUE: Frontal and lateral views of the lumbar spine. COMPARISON: December 11, 2017. FINDINGS: No definite acute fracture. Interval placement of L3-L5 posterior fusion rods and transpedicular screws. Intervertebral disc spaces noted. Hardware appears well seated. Alignment of lumbar vertebral bodies is within normal limits. Generalized osteopenia. Atherosclerotic disease in abdominal aorta. IMPRESSION: L3-L5 posterior fusion hardware without evidence of complication.
--- NOTE | 2018-03-24 07:31 | DI ---
EXAM: XR Sacrum and Coccyx, 2 or more Views CLINICAL HISTORY: BACK PAIN S/P SURGERY TECHNIQUE: Frontal and lateral views of the sacrum and coccyx. COMPARISON: None. FINDINGS: No radiographic evidence of acute fracture or malalignment. Lumbar spine hardware are noted. Generalized osteopenia. Arthritic changes in the sacroiliac joints. IMPRESSION: No acute fracture.
--- NOTE | 2018-03-24 07:36 | PDOC ---
Back Pain / Injury HPI - General Chief Complaint: Neck / Back Complaint Stated Complaint: BACK PAIN Date Seen by Provider: 03/24/18 Time Seen by Provider: 03:40 Source: Patient, Other () Exam Limitations: POSITIVE: No limitations Nurse's Notes Reviewed & Considered: Yes - History of Present Illness Initial Comments: the patient is a 77-year-old female. Patient states that she had surgery to her lumbar spine on 20 March. She was discharged on 22 March. Patient states that she has had pain in her lower back since 20 March. She states she was "having a lot of pain in the hospital when they discharge". Review of old records shows that she had a lumbar decompression with complete facetectomy with segmental pedicle screw instrumentation and intertransverse versus fusion and bone graft. Patient was discharged on [place] 10/325 and Flexeril 10 mg as well as lorazepam. History of type II diabetes mellitus. Patient has no fevers or chills. No redness or drainage at the surgical site. No sensory or motor symptoms. No GI or symptoms. No cough or respiratory distress. No headache. Patient is brought to the emergency room by her . Patient was advised to walk as much as possible. She presents to the emergency room with a walker. states that he is too ill to care for her at home, citing chronic back problems of his own. Body Location Affected: REPORTS: Back (Low back pain) Timing: REPORTS: Constant Duration: <1 week (Patient states that she has had low back pain ever since her surgical procedure as above. History of chronic low back pain prior to surgery. ) Severity: Moderate Quality: REPORTS: "Pain" Context: REPORTS: None Location at Time of Onset: REPORTS: Other (As above) Modifying Factors: improves with: Movement, Other (Direct palpation) Associated Symptoms: REPORTS: Back pain Similar Symptoms Previously: Yes Recent Care Received: REPORTS: Recently Seen, Treated by MD, Hospitalized, Surgery Any Prior Injuries Related to Current Complaint?: No - Patient Home Medications Home Medications: Home Medications clopidogrel 75 mg tablet 75 mg PO QDAY #90 tab 04/15/17 pantoprazole 40 mg tablet,delayed release 40 mg PO BID #180 tab 06/24/17 metformin 1,000 mg tablet 1,000 mg PO BID #180 tab 08/15/17 metoprolol tartrate 50 mg tablet 25 mg PO BID #90 tab 08/15/17 ramipril 10 mg capsule 20 mg PO BID #360 cap 08/15/17 levothyroxine 125 mcg tablet 125 mcg PO QAM #90 tab 09/17/17 lorazepam 0.5 mg tablet 0.5 mg PO TID PRN #90 tab 09/17/17 Pen Needle, Diabetic [Ulticare Pen Needle] 0 amp .ROUTE .MEDSUPPLY 11/21/17 amlodipine 10 mg tablet 10 mg PO QDAY #90 tab 12/19/17 insulin syringe-needle U-100 0.3 mL 31 gauge x 10/16" See Dose Instructions .ROUTE .MEDSUPPLY #50 ea 01/22/18 atorvastatin 20 mg tablet 20 mg PO QHS #90 tab 03/13/18 Insulin Glargine,Hum.rec.anlog [Basaglar Kwikpen U-100] 20 unit SUBCUT QHS 03/20 Ciprofloxacin HCl [Cipro] 750 mg PO Q12H #10 tab 03/22/18 Cyclobenzaprine HCl [Flexeril] 10 mg PO TID PRN #30 tab 03/22/18 HYDROcodone/APAP 10/325 Tab [[place] 10/325 Tab] 1 tab PO Q6H PRN #60 tab - Patient Allergies Allergies/Adverse Reactions: Allergies 3 Allergy/AdvReac Type Severity Reaction Status Date / Time iodine [Iodine] Allergy Severe Anaphylaxis Verified 03/24/18 03:53 sitagliptin phosphate AdvReac Severe KIDNEY Verified 03/24/18 03:53 [From Januvia] FAILURE SHELLFISH Allergy Severe Anaphylaxis Uncoded 03/24/18 03:53 Past Medical History - heen HEENT History: Cataracts, Dentures/Partials, Other (please comment) Additional HEENT History: BILATERAL CATARACT REMOVAL, WEARS GLASSES, full dentures Cardiovascular History: Hypertension, Arrhythmia, Hyperlipidemia, Other (please comment) Additional Cardiovasular History: MURMUR, ATRIAL FIBRILLATION. HEART CATH 2014 Respiratory History: Denies History Additional Respiratory History: SEASONAL ALLERGIES Gastrointestinal History: Peptic Ulcer Disease Additional Gastrointestinal History: Hx of appendectomy. Genitourinary History: Other (please comment) Additional Genitourinary History: Hx of renal failure APPROX 8-9 YEARS AGO possibly from diabetic med Endocrine History: Type 2 Diabetes (oral), Type 2 Diabetes (insulin), Hypothyroidism, Other (please comment) Additional Endocrine History: thyroidectomy 09/27/11 Musculoskeletal History: Arthritis, Back Pain Prosthesis or Implant: No Additional Musculoskeletal History: RIGHT CARPAL TUNNEL RELEASE, RIGHT KNEE SCOPE Neurological History: CVA, TIA, Seizures Additional Neurological History: CVA 10/2012, TIA 09/10/14 Blood Disorders: Clotting Disorders Psychiatric History: Anxiety Disorders History of Sexually Transmitted Diseases: No Female Reproductive History: Denies History Obstetrical History: Denies History Cancer History: Denies History In Past Year Been Physically Harmed or Verbally Threatened: No History of MDRO: No History of Other Communicable Diseases: No Tobacco Use: Never Smoker Alcohol Use: Rarely In the Past 12 Months, Have Used or Abuse Any Substance: None Previous Surgical History: Yes Type / Date of Surgery: APPY/ R CTR/ COLONOSCOPY/ EGD/ THYROIDECTOMY/ BILATERAL CATARACT REMOVAL, RIGHT KNEE ARTHROSCOPY/L CAROTID ARTERY CLEAN OUT. Anesthesia Reactions: No Malignant Hyperthermia: No Significant Family History: Heart disease, Cancer, Diabetes Past Medical History Reviewed: Reviewed - No Changes ROS - Limitations ROS Limitations: No Limitations Constitution: REPORTS: Denies Symptoms Cardiovascular: REPORTS: Denies Cardiac Symptoms Respiratory: REPORTS: Denies Resp Symptoms Neurological: REPORTS: Denies Neuro Symptoms Gastrointestinal: REPORTS: Denies GI Symptoms Endocrine: REPORTS: Denies Symptoms Musculoskeletal: REPORTS: Other (Low back pain; postoperative and chronic.) Genitourinary: REPORTS: Denies Symptoms Eyes: REPORTS: Denies Symptoms ENT: REPORTS: Denies Symptoms Skin: REPORTS: Denies Skin Symptoms Lympathic: REPORTS: Denies Lympathic Symptoms Immunologic: POSITIVE: Denies Symptoms Psychiatric: POSITIVE: Denies Psych Symptoms Back Physical Assessment - General Appearance General Appearance: REPORTS: Alert, Cooperative, Mild Distress (Due to low back pain). DENIES: No Acute Distress - HEENT HEENT: POSITIVE: Head Inspection Nml, Eyes Inspection Nml, Ears Inspection Nml, Nose Inspection Nml, Oral/Dental Inspect. Nml, Pharynx Inspect. Nml, PERRL, EOMI - Pupil Size Pupil Size: 3 mm: Bilateral - Neck Neck: POSITIVE: Non Tender, Painless ROM, Trachea Midline, Nexus Criteria Negative - Respiratory / CVS Respiratory / CVS: POSITIVE: Chest Non Tender, No Ecchymosis, Breath Sounds Normal, No Respiratory Distress, Heart Sounds Normal, Regular Rate/Rhythm - Abdomen Abdomen: Soft: (All Quadrants), Normal Bowel Sounds: (All Quadrants), Denies Tenderness: (All Quadrants), No Splenomegaly: (All Quadrants), No Hepatomegaly: (All Quadrants), No Guarding: (All Quadrants), No Rebound: (All Quadrants), No Palpable Pulse: (All Quadrants), No Palpabale Mass: (All Quadrants), No Distention: (All Quadrants), No Rigidity: (All Quadrants) - Back Back: REPORTS: Limited ROM, See Diagram (Examination of the back shows the surgical site in the lumbar area to be healing well. No redness or discharge or any other signs of infection. Patient complains of discomfort on palpation over the surgical site and paralumbar areas adjacent to this site. She has pain with full flexion. No sensory or motor deficits or symptoms). DENIES: Non Tender, Painless ROM, No Vertebral Tenderness, Vertebral Pt. Tenderness, CVA Tenderness (R), CVA Tenderness (L), Muscle Spasm - Skin Skin: REPORTS: Intact, Normal For Race, Warm, Dry, No Rash, Other (No signs of infection at surgical site) - Extremities Extremity Assessment: Non-Tender: (ALL), Normal ROM: (ALL), No Edema: (ALL), Normal Inspection: (ALL), No Swelling: (ALL) Musculoskeletal: REPORTS: Back Pain (Over lumbar area) Peripheral Pulses: Radial (R): 2+, Radial (L): 2+, Dorsalis-pedis (R): 2+, Dorsalis-pedis (L): 2+ - Neurological / Psychological Neuro / Psych: NEGATIVE: Oriented X3, Reflexes Normal, parquetry floor layer Normal As Tested, Motor Normal, Sensation Normal, Mood Appropriate, Affect Appropriate, Weakness, Sensory Loss, Facial Droop, Speech Abnormality, Cognition Abnormality, Depressed Mood, Depressed Affect, Unsteady Gait, Ataxic, CN Deficit, Motor Deficit, Antalgic, Clonus, Abnormal Reflexes, Disoriented To Person, Disoriented To Place, Disoriented To Time, Other Images - Complete Complete: 1 - Surgical site healing well with no signs of infection. 2 - Area of described discomfort Back Progress - Results Reviewed by me Xrays/CTs/US Reviewed: Yes Discussed with Radiologist: Yes Radiology Findings: X-ray of the lumbosacral spine shows metallic instrumentation of the lumbosacral spine. CT scan of the lumbosacral spine shows postsurgical changes L3-L5; hardware is well seated. Suboptimal evaluation for epidural fluid collections due to artifact due to metal. Lab Results Reviewed by Me: Yes CBC and BMP: 03/24/18 05:47 03/24/18 05:47 Lab Results:: Laboratory Results 3 03/24/18 03/24/18 05:47 05:47 WBC 10.23 RBC 3.14 L Hgb 9.1 L Hct 28.2 L MCV 89.8 MCH 29.0 MCHC 32.3 L RDW Std Deviation 47.5 RDW Coeff of Mitchel 14.9 H Plt Count 229 MPV 8.7 Immature Gran % (Auto) 0.3 Neut % (Auto) 78.8 Lymph % (Auto) 11.7 Hayes % (Auto) 9.1 Eos % (Auto) 0 Baso % (Auto) 0.1 Immature Gran # (Auto) 0.03 Neut # (Auto) 8.06 Lymph # (Auto) 1.20 Hayes # (Auto) 0.93 H Eos # (Auto) 0 Baso # (Auto) 0.01 WBC Morphology Comment Normal morphology Plt Morphology Comment Normal morphology RBC Morph Comment Normal morphology Sodium 131 L D Potassium 4.6 Chloride 98 Carbon Dioxide 24 Anion Gap 9 BUN 22 Creatinine 1.2 BUN/Creatinine Ratio 18.33 Glucose 152 H Calculated Osmolality 277.0 Calcium 9.9 Total Bilirubin 0.6 D AST 17 ALT 20 Alkaline Phosphatase 58 Total Protein 6.9 Albumin 4.0 Globulin 2.9 Albumin/Globulin Ratio 1.30 - Patient's Progress Pain Medication Addressed: POSITIVE: Yes (Patient given 4 mg of morphine sulfate ) School/Work Release Addressed: POSITIVE: Not Applicable Re-Examine Time: 17:15 Re-Examine Comment: Patient's condition discussed with patient and patient's . Both are adamant that she is having too much pain to manage at home, and the patient apparently has a very poor support for her activities of daily living at home, due to the patient's 's medical conditions. Patient is adamant that she cannot care for herself at home. Case discussed with Dr. Modi , hospitalist who has admitted the patient for pain control and for further evaluation and treatment as necessary. Patient achieved some relief of her discomfort following administration of morphine sulfate. Status: POSITIVE: Improved, Re-Examined - Consult Consult (If Yes, Name of Consulting MD & Time Called): Yes (, hospitalist ,[id number] ) Consulting MD will see pt:: POSITIVE: [facility] Admit Counseled: POSITIVE: Patient, Family, RE: Radiology Results, RE: DX, RE: Need for F/U Patient Care Time - Estimated PCT Patient Care Time (In Minutes): 60 Vital Signs - Recent Vital Signs Vital Signs: Vital Signs (Last 8 hours) Temp Pulse Resp BP Pulse Ox 03/24/18 03:22 98.6 F 107 H 20 134/71 90 - VS Reviewed Vital Signs Reviewed: Yes Discharge Clinical Impression: Low back pain, Anemia Discharge Disposition: Admit to Inpatient Condition: Stable Follow Up With: KENIA ROBB [Primary Care Provider] - Date Decision to Admit to Inpatient: 03/24/18 Time Decision to Admit to Inpatient: 07:15
[2018-03-24] MEDS: HYDROcodone-APAP 10 MG-325 MG TABLET PO PRN ×3 (09:39→22:06)
[2018-03-24] MEDS ORDERED: Acetaminophen 1000mg Inj 1,000 MG/100 ML VIAL IV PRN (09:51)
[2018-03-24] MEDS ORDERED: LORazepam 1 MG TABLET PO PRN (10:00)
[2018-03-24] MEDS: metFORMIN 500 MG TABLET PO SCH ×2 (11:09→20:03)
[2018-03-24] MEDS: LEVOTHYROXINE 125 MCG TABLET PO SCH (11:09)
[2018-03-24] MEDS: CLOPIDOGREL 75 MG TABLET PO SCH (11:09)
[2018-03-24] MEDS: CYCLOBENZAPRINE 10 MG TABLET PO PRN ×2 (11:10→20:03)
[2018-03-24] MEDS: PANTOPRAZOLE 40 MG TABLET PO SCH ×2 (11:10→20:03)
[2018-03-24] MEDS: Metoprolol TARTRATE Tab 25 MG TAB PO SCH ×2 (11:10→20:03)
--- NOTE | 2018-03-24 11:39 | PDOC ---
HPI - History of Present Illness History of Present Illness: This very nice 77-year-old female who had the lumbar spine surgery on March 20 was discharged on the by neurosurgery. Comes back with the lower back pain. And unable to take care of elderly and also states that her has been having a harder time taking care her. CT scan of the lumbar spine suggested to the ER physician was negative for abscess or hematoma but could not exclude so MRI was ordered. Patient seems to be pretty comfortable at present time no chest pain nausea vomiting Past Medical History Medical History: 1. Cerebrovascular disease with history of stroke in the past. 2. Postsurgical hypothyroidism. 3. Diabetes mellitus type II well controlled. 4. Hypertension. 5. Hypercholesterolemia. 6. History of renal failure, remote Surgical History: 1. Appendectomy. 2. Right knee scope. 3. thyroidectomy. 4. Left carotid endarterectomy Pertinent Family History: Significant for heart disease and diabetes. 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 Does not smoke or drink currently. Spends time in [employer] and in [employer]. Quit smoking quite a while back. Tobacco Use: Never Smoker In the Past 12 Months, Have Used or Abuse Any of the Following Substance: None Medication / Allergies Home Medications: Home Medications 3 Medication Instructions Recorded Confirmed Type clopidogrel 75 mg tablet 75 mg PO QDAY #90 tab 04/15/17 03/24/18 Rx pantoprazole 40 mg tablet,delayed 40 mg PO BID #180 tab 06/24/17 03/24/18 Rx release metformin 1,000 mg tablet 1,000 mg PO BID #180 tab 08/15/17 03/24/18 Rx metoprolol tartrate 50 mg tablet 25 mg PO BID #90 tab 08/15/17 03/24/18 Rx ramipril 10 mg capsule 20 mg PO BID #360 cap 08/15/17 03/24/18 Rx levothyroxine 125 mcg tablet 125 mcg PO QAM #90 tab 09/17/17 03/24/18 Rx lorazepam 0.5 mg tablet 0.5 mg PO TID PRN #90 tab 09/17/17 03/24/18 Rx Pen Needle, Diabetic [Ulticare Pen 0 amp .ROUTE .MEDSUPPLY 11/21/17 03/24/18 History Needle] amlodipine 10 mg tablet 10 mg PO QDAY #90 tab 12/19/17 03/24/18 Rx insulin syringe-needle U-100 0.3 See Dose Instructions .ROUTE 01/22/18 03/10/18 Rx mL 31 gauge x 10/16" .MEDSUPPLY #50 ea atorvastatin 20 mg tablet 20 mg PO QHS #90 tab 03/13/18 03/24/18 Rx Insulin Glargine,Hum.rec.anlog 20 unit SUBCUT QHS 03/20/18 03/24/18 History [Basaglar Kwikpen U-100] Ciprofloxacin HCl [Cipro] 750 mg PO Q12H #10 tab 03/22/18 03/24/18 Rx Cyclobenzaprine HCl [Flexeril] 10 mg PO TID PRN #30 tab 03/22/18 03/24/18 Rx HYDROcodone/APAP 10/325 Tab 1 tab PO Q6H PRN #60 tab 03/22/18 03/24/18 Rx [[place] 10/325 Tab] Allergies/Adverse Reactions: Allergies 3 Allergy/AdvReac Type Severity Reaction Status Date / Time iodine [Iodine] Allergy Severe Anaphylaxis Verified 03/24/18 03:53 sitagliptin phosphate AdvReac Severe KIDNEY Verified 03/24/18 03:53 [From Januvia] FAILURE SHELLFISH Allergy Severe Anaphylaxis Uncoded 03/24/18 03:53 Review of Systems - Review of Systems All Systems: Reviewed & No Additional Complaints Except as Stated - Respiratory Respiratory: DENIES: Negative System Review, Cough, Sputum, Dyspnea At Rest, Dyspnea with Exertion, Pleuritic Pain, Hemoptysis, Wheezing, Other, See HPI - Cardiovascular Cardiovascular: DENIES: Negative System Review, Chest Pain, Edema, Syncope, Palpitations, Orthopnea, Paroxysmal Nocturnal Dyspnea, Other, See HPI - Gastrointestinal Gastrointestinal / Abdominal: DENIES: Negative System Review, Nausea, Vomiting, Diarrhea, Constipation, Abdominal Pain, Bloody Stool, Poor Appetite, Heartburn, Regurgitation, Bloating, Lactose Intolerance, Melena, Bright Red Blood per Rectum, Other, See HPI - Musculoskeletal Musculoskeletal: REPORTS: Back Pain Exam - Vitals Vital Signs: Vital Signs Temperature 98.7 F Temperature Source Temporal Artery Scan Pulse Rate [Pulse Oximeter] 99 Pulse Rate 99 Respiratory Rate 20 Blood Pressure [Left Arm] 150/61 Blood Pressure 124/71 Pulse Ox 94 Oxygen Flow Rate 3 Oxygen Delivery Method Nasal Cannula Height 5 ft 4 in Weight 179 lb 6 oz - General General Appearance: No Acute Distress, Cooperative - Neck Neck Exam: Normal Inspection, Full ROM, No Tenderness, No Lymphadenopathy, No Thyromegaly, JVP is not Raised - Respiratory Respiratory Exam: POSITIVE: Clear to Auscultation - Bilaterally, Breathing Non Labored, Normal To Percussion, Normal to Percussion and Palpation - Cardiovascular Cardiovascular Exam: POSITIVE: RRR, No Murmur, No Clicks, No Gallops, No Rubs, PMI Non-Displaced - GI/Abdominal GI/Abdominal Exam: POSITIVE: Normal Bowel Sounds, Non Tender, Non Distended, Soft, No Masses, No Hepatomegaly, No Splenomegaly, No Organomegaly - Extremities Extremities Exam: POSITIVE: No Clubbing Present, No Edema Present, No Cyanosis Present Results - Labs CBC and BMP: 03/24/18 05:47 03/24/18 05:47 Assessment and Plan - Patient Problems (1) Low back pain Current Visit: Yes Status: Acute Comment: We'll order MRI since the CT scan cannot exclude abscess or infection this could just be chronic pain her postop pain as well. We will try to treat the pain with IV Tylenol instead of narcotics patient agrees and understands Code(s): M54.5 - Low back pain - Assessment / Plan Additional Assessment/Plan Details: Continue medications for other chronic medical issues at this time
--- NOTE | 2018-03-24 11:51 | DI ---
MRI Lumbar Spine WO Contrast 03/24/2018 9:06 AM History: ^pain recent surgery Comparison: Lumbar spine CT from earlier the same day. Lumbar spine MRI from 12/18/2017. Procedure: Noncontrast routine MR imaging of the lumbar spine was performed. Findings: There are postsurgical changes of the dorsal soft tissues at the L3-L5 level. The patient i s status post transpedicular L3-L5 fusion with interbody spacer placement. There is also L3 and L4 la minectomy. There is a 1.4 cm AP x 1.7 cm transverse x 4.8 cm CC collection of material in the dorsal epidural soft tissues that exhibits high T2 and isointense T1 signal, possibly representing hematoma. The central canal is narrowed but not effaced, and not more significantly narrowed than the preopera tive comparison examination. Facet graft material is noted bilaterally. There is a 2 x 1 x 2 cm fragm ent of graft material that extends into the right dorsal epidural region at the L4/5 level, exerting mass effect on the central canal and narrowing it to 7 mm. Artifact from hardware and recent surgical intervention limits evaluation of fine anatomic detail. There are five non rib-bearing lumbar type vertebral bodies. There is normal anatomic alignment of th e lumbar spine. The vertebral body heights are maintained. Surgical intervention limits evaluation of bone marrow pathology. There is normal termination of the conus at the T12 level. L1/2: Normal disc signal and morphology. There is no significant central canal stenosis or neurofora marah narrowing. L2/3: Mild disc desiccation and height loss. Mild concentric disc bulge narrows the central canal to 8 mm. The disc bulge and facet arthrosis with ligamentum flavum hypertrophy results in no significant neuroforaminal narrowing. L3/4: Intervertebral disc spacer limits evaluation of the disc. Concentric disc bulge narrows the elmira tral canal to 6 mm. There is no significant neuroforaminal narrowing within the limits of this exam. L4/5: Intervertebral disc spacer placement limits evaluation of the disc. Concentric disc bulge narro ws the central canal to 5 mm. There is no significant neural foraminal narrowing within the limits of this exam. L5/S1: Moderate disc desiccation and height loss. There is concentric disc osteophyte complex without significant central canal stenosis. There is facet arthrosis without significant neuroforaminal narr owing. Impression: Postsurgical and degenerative changes as outlined above. Correlate with clinical symptoms and desired surgical outcome.
[2018-03-24] MEDS ORDERED: DEXTROSE 50%-WATER SYRINGE 50 ML SYRINGE IVP PRN (13:01)
[2018-03-24] MEDS ORDERED: Insulin Sliding Scale Protocol SUBCUT PRN (13:01)
[2018-03-24] MEDS ORDERED: DEXTROSE 31 GM GEL PO PRN (13:01)
[2018-03-24] MEDS ORDERED: Glucagon Inj Vial 1 MG/ML VIAL IM PRN (13:01)
[2018-03-24] MEDS ORDERED: DEXAMETHASONE PF 10 MG/1 ML VIAL IVP ONE (13:12)
[2018-03-24] MEDS ORDERED: MAGNESIUM 400 MG/5 ML - 30 ML (MILK OF MAGNESIA) PO PRN (14:12)
[2018-03-24] MEDS: ATORVASTATIN 20 MG TABLET PO SCH (20:03)
[2018-03-24] MEDS: Insulin Glargine SoloStar Inj 100 UNIT/ML INSULN.PEN SUBCUT SCH (20:03)
[2018-03-24] MEDS: Insulin Lispro Flexpen 300 UNIT/3 ML INSULN.PEN SUBCUT SCH (20:49)
[2018-03-24] MEDS: GUAIFENESIN 600 MG TABLET PO PRN (21:18)
[2018-03-25] MEDS: LEVOTHYROXINE 125 MCG TABLET PO SCH (04:58)
[2018-03-25] MEDS: Insulin Lispro Flexpen 300 UNIT/3 ML INSULN.PEN SUBCUT SCH ×4 (07:10→20:24)
[2018-03-25] MEDS: CLOPIDOGREL 75 MG TABLET PO SCH (09:02)
[2018-03-25] MEDS: Metoprolol TARTRATE Tab 25 MG TAB PO SCH ×2 (09:02→20:26)
[2018-03-25] MEDS: PANTOPRAZOLE 40 MG TABLET PO SCH ×2 (09:03→20:25)
[2018-03-25] MEDS: metFORMIN 500 MG TABLET PO SCH ×2 (09:03→20:26)
[2018-03-25] MEDS: HYDROcodone-APAP 10 MG-325 MG TABLET PO PRN ×2 (09:19→19:11)
[2018-03-25] MEDS ORDERED: Fleet Enema w/Mineral Oil 133ml RECTAL ONE (12:22)
[2018-03-25] MEDS ORDERED: Sodium Chloride 0.9% 500 ML IV ONE (13:16)
[2018-03-25] MEDS ORDERED: POLYETHYLENE GLYCOL 3350 17 GM POWDER PO ONE (13:16)
--- NOTE | 2018-03-25 16:06 | PTI REPORT ---
Thank you for the referral of Julia Viveros. She was seen on 03/25/18 for an inpatient evaluation status post lumbar fusion. SUBJECTIVE: The patient is a 77-year-old female who underwent a lumbar fusion last week. The patient states that she was discharged on 03/22/2018 from the hospital following her lumbar fusion. She states that when she returned home she was having difficulty getting in and out of bed and just in general with her mobility and back pain. The patient is in the hospital at this time secondary to her back pain along with difficulties as she hasn't had a bowel movement in a week. She is also dealing with high blood sugars at this time and she states her numbers are in the 300s. She states she has also been having difficulties with functional activities. The patient lives here in [place] with her who does help her at home with activities such as getting in and out of bed, donning and doffing her brace, and getting dressed as needed. PAST MEDICAL HISTORY: Past medical history can be found in the patient's medical record. OBJECTIVE FINDINGS: General observations: The patient was alert and oriented to setting upon PT arrival. The patient was sitting up in a chair and stated that she felt dizzy and shaky secondary to her blood sugars being above 300. She was trying to move her upper extremities as much as possible to get a little bit of exercise, but stated that she wasn't able to be up walking as she felt very unsteady on her feet secondary to high blood sugar. Transfers: The patient transferred from sit to stand from the chair. The patient did forget to don her brace once she was standing and required cueing from therapy and max assist in order to don her brace and tighten it correctly. Ambulation: The patient was able to ambulate across the room with her front wheeled walker to the bed and perform a stand to seated transfer safely and independently. Bed mobility: The patient was willing to try working on her log roll in and out of bed as this is one thing she has been having a lot of difficulty with for the few days that she was at home. The patient required min cueing in order to perform a log roll into bed. She did struggle with getting both legs up onto the bed when trying to get into bed. Once she was able to get them both up, she was able to correctly perform the log roll and was able to perform bed mobility correctly. The patient was able to log roll out of bed safely and independently without cueing and was able to transfer back to the chair safely and independently. ASSESSMENT: The patient has good rehab potential to return back home. Problem List: Back pain Difficulties with transfers Difficulties donning/doffing her brace Short-Term Goals: To be met by discharge from inpatient: Patient will be able to perform log rolls safely and independently. Patient will be able to ambulate safely and independently with front wheeled walker and her brace in place x150 feet. Patient will be able to don and doff brace with modified independence as she does receive help from her at home. Long-Term Goals: To be met following discharge from inpatient: Patient may attend outpatient physical therapy if deemed necessary upon time of discharge. We did discuss home health due to the patient's difficulties with some of her functional transfers and possibly showering as she has not attempted this yet. The patient states that she feels she is comfortable being able to do these activities with help from her . If we have any issues we will continue to consider home health if necessary. TREATMENT PLAN: Patient will be seen B.I.D during the week and one time per day over the weekend as an inpatient to address the above goals and objectives. INITIAL TREATMENT: Treatment today consisted of the initial evaluation. Following treatment the patient was left in chair with alarm set and call light within reach. JAMES
--- NOTE | 2018-03-25 16:26 | OT.PROG ---
Progress Note Progress Note: S: pt reports that she is doing much better. She just reported that her and her were having to much difficulty getting her up and to bathroom. O: pt was seen in her room and completed bed mobility with use of log roll to her L INd. She then donned brace with min A and completed transfer to bathroom. She completed toileting hygiene Ind and hygiene at sink INd. She completed transfer around nurses station approx 600 ft. She then returned to her room completing bed mobility INd. she was left upright with call light within reach and nursing notified. A: pt participated well and displayed no difficulties with bed mobility. She also displayed good mobility by completing 600 ft of ambulation. P: continue per POC.
--- NOTE | 2018-03-25 16:33 | PT.PROG ---
Progress Note Progress Note: Pt participated with OT this afternoon and declined to participate with PT as she was fatigued with OT activities. We will plan to see pt in the AM if she is still at the hospital in order to practice transfers once more. Pt was able to complete a log roll into and out of bed this morning with mod I.
--- NOTE | 2018-03-25 17:31 | PDOC(PROG) ---
Date of Service: 03/25/18 Time of Service: 17:28 Interval History: Patient seen and evaluated twice a day. No complaints of chest pain, shortness breath, nausea or vomiting. Throughout the day, we have tried various medications and she finally has had some relief of her constipation. She would like to go home tomorrow. Her back pain is improving. Objective : Data - Labs CBC and BMP: 03/24/18 05:47 03/24/18 05:47 Objective : Exam - General General Appearance: No Acute Distress, Cooperative Additional General Exam Details: Vital Signs - Last Taken Temperature 98 F 03/25/18 16:00 Pulse Rate 81 03/25/18 16:00 Respiratory Rate 20 03/25/18 16:00 Blood Pressure 144/55 03/25/18 16:00 Pulse Ox 95 03/25/18 16:00 - Head Head Exam: Normal Inspection, Normocephalic, Atraumatic - Eye Eye Exam: No Scleral Icterus - ENT ENT Exam: Mucous Membranes Moist - Respiratory Respiratory Exam: Clear to Auscultation - Bilaterally, Breathing Non Labored - Cardiovascular Cardiovascular Exam: RRR, No Murmur, No Clicks, No Gallops, No Rubs, No JVD - GI/Abdominal GI/Abdominal Exam: Normal Bowel Sounds, Non Tender, Non Distended, Soft - Extremities Extremities Exam: No Clubbing Present, No Edema Present, No Cyanosis Present - Neurological Neurological Exam: Alert, Oriented x 3, No Facial Droop, Speech Intact / Clear, Moves All Extremities Equally Assessment and Plan - Patient Problems (1) Low back pain Current Visit: Yes Status: Acute Code(s): M54.5 - Low back pain Qualifiers: Chronicity: acute Back pain laterality: midline Sciatica presence: without sciatica Qualified Code(s): M54.5 - Low back pain (2) Postoperative seroma Current Visit: Yes Status: Acute Qualifiers: Surgical complication system/body Area: nervous system Procedure type: nervous system Qualified Code(s): G97.63 - Postprocedural seroma of a nervous system organ or structure following a nervous system procedure - Assessment / Plan Additional Assessment/Plan Details: Continue Medrol Dosepak as per neurosurgery recommendations. Follow-up with Dr. Pierre for reevaluation of seroma in 1-2 weeks. Continue medications for constipation and probable discharge tomorrow morning. Given some postoperative anemia, recheck CBC tomorrow.
[2018-03-25] MEDS: CYCLOBENZAPRINE 10 MG TABLET PO PRN (19:11)
[2018-03-25] MEDS: Insulin Glargine SoloStar Inj 100 UNIT/ML INSULN.PEN SUBCUT SCH (20:25)
[2018-03-25] MEDS: LACTULOSE 20 GM PACKET PO SCH (20:26)
[2018-03-25] MEDS: ATORVASTATIN 20 MG TABLET PO SCH (20:26)
[2018-03-25] MEDS: GUAIFENESIN 600 MG TABLET PO PRN (20:29)
[2018-03-26 04:40] LABS: Hematocrit [HCT] 24.6 % (37.0-47.0); Hemoglobin [HGB] 7.7 g/dL (12.0-16.0); MEAN CORPUSCULAR HEMOGLOBIN 28.1 PG (27-31); MEAN CORPUSCULAR HGB CONC 31.3 g/dL (33-37); MEAN CORPUSCULAR VOLUME 89.8 FL (81-99); MEAN PLATELET VOLUME 9.1 FL (7.4-12.2); RED BLOOD COUNT 2.74 10^6/uL (4.20-5.40)
[2018-03-26] MEDS: LEVOTHYROXINE 125 MCG TABLET PO SCH (04:54)
[2018-03-26 04:55] LABS: BLOOD UREA NITROGEN 30 mg/dL (7-22); BUN/CREATININE RATIO 27.27 (6-20)
[2018-03-26 06:43] VITALS: O2SAT 94
[2018-03-26] MEDS: Insulin Lispro Flexpen 300 UNIT/3 ML INSULN.PEN SUBCUT SCH ×2 (06:44→11:06)
[2018-03-26] MEDS: CLOPIDOGREL 75 MG TABLET PO SCH (08:27)
[2018-03-26] MEDS: PANTOPRAZOLE 40 MG TABLET PO SCH (08:27)
[2018-03-26] MEDS: LACTULOSE 20 GM PACKET PO SCH (08:27)
[2018-03-26] MEDS: metFORMIN 500 MG TABLET PO SCH (08:28)
[2018-03-26] MEDS: Metoprolol TARTRATE Tab 25 MG TAB PO SCH (08:28)
[2018-03-26] MEDS: HYDROcodone-APAP 10 MG-325 MG TABLET PO PRN (08:33)
[2018-03-26] MEDS ORDERED: POLYETHYLENE GLYCOL 3350 17 GM POWDER PO SCH (09:00)
--- NOTE | 2018-03-26 10:27 | OT.PROG ---
Progress Note Progress Note: S: pt stated she feels much better today. She did not want her to get hurt while trying to assist her out of bed when she was in so much pain. She believes she is more ready to return home now. O: pt was seen in her room and was upright in chair. She did need help donning LE garments only because her investment analyst was at home and she usually uses it to assist her. She completed donning of Ue gown with min A. She then donned her back brace with mod Ind as it took her a little longer to complete. She then completed functional transfer entire way to therapy. She received 25 min of moist heat to lower back. She donned back brace with Vc's after completing sit to stand Ind. She returned to her room and was left upright in chair and left her brace on per her request. A: pt demonstrated transfers well today with no pain to report. She did need some v'c's to christi brace but overall believe she can do it INd. Due to decrease pain and Ind in bed mobility she may be appropriate to return home. P: continue per pOC.
[2018-03-26 11:22] VITALS: BP 137/67; RESP 16; TEMP 96.7
[2018-03-26 11:24] LABS: Hematocrit [HCT] 27.9 % (37.0-47.0); Hemoglobin [HGB] 8.8 g/dL (12.0-16.0); MEAN CORPUSCULAR HEMOGLOBIN 28.5 PG (27-31); MEAN CORPUSCULAR HGB CONC 31.5 g/dL (33-37); MEAN CORPUSCULAR VOLUME 90.3 FL (81-99); RED BLOOD COUNT 3.09 10^6/uL (4.20-5.40)
--- NOTE | 2018-03-26 12:32 | DCSUMMARY ---
Hospitalization Summary Admit Date: 03/24/2018 Discharge Date: 03/26/18 Primary Diagnosis:: postoperative seroma following lumbar surgery. Hospital Course: This is a very pleasant 77 year old female who just had recent lumbar surgery. She had radicular pain bilaterally, and a stabbing knifelike sensation in her back and she stated those regards but she had a flare in her back pain postoperatively and came in for evaluation. She was found by MRI scan to have a fluid collection consistent with a hematoma and/or a seroma. Neurosurgery saw the patient here and felt this was more consistent with a seroma and recommended steroids. The patient's preoperative pain never did return. Hemoglobin dropped to 7.7 today, but there is nothing consistent on examination nearly incision with hematoma or fluid collection. There was no incision drainage or discharge. I repeated the CBC and the hemoglobin and actually gone to 8.8. I think the 7.7 was a lab anomaly. The patient states that she feels significantly better on the steroids and she is "ready to go home". She did walk with therapy in the hallways but she stated that her neurosurgeon and advised her not to do therapy for upwards of a week. She stated me that her preoperative pain did not come back at all and in fact all of that is resolved. She has some incisional pain but no radicular symptoms and no numbness in the extremities. The patient's blood sugars were elevated with initial onset of Decadron, but responded well to correction dose insulin. Other medical problems remained stable in the hospital stay. Today, no completes of back pain, no chest pain, no shortness of breath, and no nausea or vomiting. Constipation is resolved. And the patient is "ready to go home". We will stop the patient's Plavix until May. Assessment and Plan: 1. As per discharge assessments noted 2. Disposition: Patient is discharged home. 3. Condition on discharge, stable and improved. 4. Diet: regular diet 5. Activities: resume normal activities 6. Follow-Up: 1. Dr. Dill in one week 2. 7. Medications at the Time of Discharge: Home Medications 3 Medication Instructions Recorded Confirmed Type clopidogrel 75 mg tablet 75 mg PO QDAY #90 tab 04/15/17 03/24/18 Rx pantoprazole 40 mg tablet,delayed 40 mg PO BID #180 tab 06/24/17 03/24/18 Rx release metformin 1,000 mg tablet 1,000 mg PO BID #180 tab 08/15/17 03/24/18 Rx metoprolol tartrate 50 mg tablet 25 mg PO BID #90 tab 08/15/17 03/24/18 Rx ramipril 10 mg capsule 20 mg PO BID #360 cap 08/15/17 03/24/18 Rx levothyroxine 125 mcg tablet 125 mcg PO QAM #90 tab 09/17/17 03/24/18 Rx lorazepam 0.5 mg tablet 0.5 mg PO TID PRN #90 tab 09/17/17 03/24/18 Rx Pen Needle, Diabetic [Ulticare Pen 0 amp .ROUTE .MEDSUPPLY 11/21/17 03/24/18 History Needle] amlodipine 10 mg tablet 10 mg PO QDAY #90 tab 12/19/17 03/24/18 Rx insulin syringe-needle U-100 0.3 See Dose Instructions .ROUTE 01/22/18 03/10/18 Rx mL 31 gauge x 5/16" .MEDSUPPLY #50 ea atorvastatin 20 mg tablet 20 mg PO QHS #90 tab 03/13/18 03/24/18 Rx Insulin Glargine,Hum.rec.anlog 20 unit SUBCUT QHS 03/20/18 03/24/18 History [Fariba Roa U-100] Ciprofloxacin HCl [Cipro] 750 mg PO Q12H #10 tab 03/22/18 03/24/18 Rx Cyclobenzaprine HCl [Flexeril] 10 mg PO TID PRN #30 tab 03/22/18 03/24/18 Rx HYDROcodone/APAP 10/325 Tab 1 tab PO Q6H PRN #60 tab 03/22/18 03/24/18 Rx [[place] 10/325 Tab] methylPREDNISolone Dose Pack 1 ea PO ASDIR #1 pkg 03/26/18 Rx [Medrol Dose Pack] I have asked the patient to hold off on Plavix for a month. The patient can also stop ciprofloxacin 8. Time, care, counseling and coordination of care for this discharge is greater than 30 minutes. Exam - Vitals Vital Signs: Vital Signs Temperature 96.7 F Temperature Source Temporal Artery Scan Pulse Rate [Pulse Oximeter] 99 Pulse Rate 67 Respiratory Rate 16 Blood Pressure [Left Arm] 137/67 Blood Pressure 124/71 Pulse Ox 94 Oxygen Delivery Method Room Air Height 5 ft 4 in Weight 180 lb 8 oz - General General Appearance: No Acute Distress, Cooperative - Eye Eye Exam: POSITIVE: No Scleral Icterus - Respiratory Respiratory Exam: POSITIVE: Clear to Auscultation - Bilaterally, Breathing Non Labored - Cardiovascular Cardiovascular Exam: POSITIVE: RRR, No Murmur, No Clicks, No Gallops, No Rubs, No JVD - GI/Abdominal GI/Abdominal Exam: POSITIVE: Normal Bowel Sounds, Non Tender, Non Distended, Soft - Extremities Extremities Exam: POSITIVE: No Clubbing Present, No Edema Present, No Cyanosis Present - Back Additional Back Exam Details: lumbar surgical incision is clean, dry, intact, nikki in place, no drainage no mass or palpable fluid collection - Neurological Neurological Exam: POSITIVE: Alert, Oriented x 3, No Facial Droop, Speech Intact / Clear, Moves All Extremities Equally - Psychiatric Psychiatric Exam: POSITIVE: Normal Affect, Normal Mood Data Peritnent Studies: 03/24/18 03/26/18 03/26/18 05:47 04:22 10:59 WBC 9.13 Hgb 9.1 L 8.8 L Hct 28.2 L 27.9 L Plt Count 326 Sodium 134 L Potassium 5.1 Chloride 101 Carbon Dioxide 22 L Anion Gap 11 BUN 30 H Creatinine 1.1 BUN/Creatinine Ratio 27.27 H Glucose 203 H Calculated Osmolality 289.0 Calcium 9.9 Patient Problems - Patient Problem List (1) Postoperative seroma Current Visit: Yes Status: Acute Qualifiers: Surgical complication system/body Area: nervous system Procedure type: nervous system Qualified Code(s): G97.63 - Postprocedural seroma of a nervous system organ or structure following a nervous system procedure Category: Medical (2) Low back pain Current Visit: Yes Status: Acute Code(s): M54.5 - Low back pain Qualifiers: Chronicity: acute Back pain laterality: midline Sciatica presence: without sciatica Qualified Code(s): M54.5 - Low back pain Category: Medical (3) Diabetes mellitus type II, controlled Current Visit: Yes Status: Acute Code(s): E11.9 - Type 2 diabetes mellitus without complications Qualifiers: Diabetes mellitus tank terminal gauger insulin use: with penitentiary use Diabetes mellitus complication status: without complication Qualified Code(s): E11.9 - Type 2 diabetes mellitus without complications; Z79.4 - termination clerk (current) use of insulin Category: Medical
--- NOTE | 2018-03-26 14:21 | OTI REPORT ---
Thank you for the referral of Julia Viveros. She was seen on 03/25/18 for an occupational therapy inpatient evaluation status post lumbar fusion. SUBJECTIVE: The patient is a 77-year-old female who is being seen today secondary to her lumbar fusion she had this past week. She reported that she went home and was having a lot of difficulty getting in and out of bed. She states she has also been constipated for the last 7 days and has not been able to have a bowel movement. She states that getting in and out of her chair is difficult. She has been using her clerk guide for undressing and dressing. She did report that one time she got her underwear backwards. PAST MEDICAL HISTORY: Past medical history can be found in the patient's medical record. OBJECTIVE FINDINGS: General observations: The patient was sitting in chair upon the therapist's arrival. Transfers: Functional transfers were reviewed. The patient is able to complete functional transfers with stand by assistance. Activities of daily living: The patient did not have any of her adaptive devices , but she did explain step by step what she was doing. The patient did need min assist to put on her brace, but her was able to do this for her. ASSESSMENT: A lot of education was provided to the patient for her to continue to use her adaptive devices. We went over how to use these appropriately and safely. We discussed home health; however, if the patient and her still feel like they are having concerns once they get home, they can call [facility] and see if the patient would qualify for any home health services. Her back precautions of no bending/twisting/turning were highly emphasized again. Occupational Therapy Goals: To be met following discharge from inpatient: Patient will be able to return home demonstrating safety and independence with all functional transfers and ADLs. TREATMENT PLAN: Patient will be seen just this one time as the patient will be discharged to home. INITIAL TREATMENT: Treatment today consisted of the initial evaluation activities. The patient's back precautions were reviewed. We had a long discussion as to whether the patient would benefit from home health or not as the patient was demonstrating a little bit more concern with her home ADLs and functional transfers. Her stated that he was quite a president college or university and was going to build a rail on the side of her bed for her to push up and off on when she is getting in and out of bed. The patient and her practiced this and her was surprised with how well she did with more instruction. JAMES
== END 2018-03-26 13:00 | disposition home or self-care (01) ==
LOC: MED/SURG 03:21 → ER 03:21
PROVIDERS: ADMIT Internal Medicine; ATTEND Internal Medicine

== ENCOUNTER 2018-08-24 06:49 | Observation (INO) ==
[2018-08-24] MEDS ORDERED: NITROGLYCERIN 0.4 MG SL TAB (BOTTLE OF 3) SL ONE ×2 (07:00→17:05)
[2018-08-24] MEDS ORDERED: NITROGLYCERIN 0.4 MG SL TAB (BOTTLE OF 3) SL PRN ×3 (07:00→17:06)
[2018-08-24] MEDS ORDERED: Sodium Chloride 0.9% 1,000 ML PRIMARY IV ONE (07:00)
--- NOTE | 2018-08-24 07:03 | EKG ---
[address] [address] Measurements Intervals [place] Rate: 75 P: 65 DC: 135 QRS: -1 QRSD: 88 T: 66 QT: 340 QTc: 369 Interpretive Statements SINUS RHYTHM NONSPECIFIC ST & T-WAVE ABNORMALITY INTERPRETATION BASED ON A DEFAULT AGE OF 40 YEARS Compared to ECG 07/26/2018 18:33:14 T-wave abnormality now present raising a question of lateral ischemia Electronically Signed On 08-25-18 11:19:08 MDT by Leland Foster MD [email or web address]
[2018-08-24 07:11] LABS: BASOPHILS # (AUTO) 0.01 10*3/UL; BASOPHILS % (AUTO) 0.1 % (0-1); EOSINOPHILS # (AUTO) 0.04 10*3/UL; EOSINOPHILS % (AUTO) 0.6 % (0-8); Hematocrit [HCT] 36.3 % (37.0-47.0); Hemoglobin [HGB] 11.9 g/dL (12.0-16.0); LYMPHOCYTES # (AUTO) 3.48 10*3/uL; MEAN CORPUSCULAR HEMOGLOBIN 28.3 PG (27-31); MEAN CORPUSCULAR HGB CONC 32.8 g/dL (33-37); MEAN CORPUSCULAR VOLUME 86.4 FL (81-99); MEAN PLATELET VOLUME 9.5 FL (7.4-12.2); MONOCYTES # (AUTO) 0.53 10*3/UL (0.3-0.8); MONOCYTES % (AUTO) 7.9 % (5-15); NEUTROPHILS # (AUTO) 2.69 10*3/UL; NEUTROPHILS % (AUTO) 39.8 % (50-80)
[2018-08-24 07:18] LABS: BLOOD UREA NITROGEN 25 mg/dL (7-22); BUN/CREATININE RATIO 19.23 (6-20); LIPASE 59 IU/L (23-300); SERUM ALBUMIN 4.7 g/dL (3.5-4.8)
[2018-08-24 07:25] LABS: PLATELET MORPHOLOGY COMMENT NORMAL MORPHOLOGY (NORM); RBC MORPHOLOGY COMMENT NORMAL MORPHOLOGY (NORM); WBC MORPHOLOGY COMMENT NORMAL MORPHOLOGY (NORM)
--- NOTE | 2018-08-24 08:02 | DI ---
EXAM: XR Chest, 1 View CLINICAL HISTORY: ITS.REASON Chest Pain Physician Notes: Tech Comments: TECHNIQUE: Frontal view of the chest. COMPARISON: 04/12/18 FINDINGS: Lungs: Unremarkable. No consolidation. Pleural space: Unremarkable. No pneumothorax. Heart: Unremarkable. No cardiomegaly. Mediastinum: Unremarkable. Bones/joints: Unremarkable. Tubes, lines and devices: Overlying chest leads partly obscure portion of the chest IMPRESSION: Stable chest. No acute pulmonary disease
[2018-08-24] MEDS ORDERED: HYDRALAZINE 20 MG/1 ML IVP ONE (08:09)
--- NOTE | 2018-08-24 08:10 | PDOC ---
Chest Pain HPI - General Chief Complaint: Chest Pain Stated Complaint: CHEST PAIN Date Seen by Provider: 08/24/18 Time Seen by Provider: 06:55 Source: Patient, EMS Exam Limitations: POSITIVE: No limitations Treatment Prior to Arrival: REPORTS: Nitroglycerin, Oxygen (x2) Nurse's Notes Reviewed & Considered: Yes EMS Report Reviewed & Considered: Verbal - History of Present Illness Initial Comments: The patient is a 78-year-old female who presents to the emergency department by ambulance with complaints of chest pain. The patient states that shortly after she woke up this morning she had onset of a pain that started in the center of her chest and then radiated towards her back. EMS was called and when they arrived her blood pressure was significantly elevated over 200 systolic. EKG done in the field showed a normal sinus rhythm with no acute ST segment changes. IVs were established and she was given 2 doses of sublingual nitroglycerin in route. Her pain has improved from a 7 to a 4 out of 10 currently. She states when the pain was intense she did feel somewhat short of breath. She denies any current headache, change in vision, numbness or weakness in her arms or legs. She does have a history of hypertension and recently has been experiencing problems with dizziness. She was found to be orthostatic in the clinic several weeks ago and her amlodipine was discontinued. She checked her blood pressure yesterday and it was in the 120s with standing, sitting and laying down. She is currently anticoagulated with L Aquinas and she also reports taking Plavix in addition. She had a blood clot below her knee in her leg after surgery last fall. She denies history of heart disease other than a history of atrial fibrillation in her chart. She does have a history of previous stroke and had a carotid endarterectomy previously. She did follow up with her vascular surgeon in [place] recently and had ultrasounds of her carotid arteries and they were clear. She did have a nuclear stress test in 2017 which did not show any evidence of ischemia however did show some calcifications in the coronary arteries. - Patient Home Medications Home Medications: Home Medications levothyroxine 125 mcg tablet 125 mcg PO QAM #90 tab 09/17/17 Pen Needle, Diabetic [Ulticare Pen Needle] 0 amp .ROUTE .MEDSUPPLY 11/21/17 atorvastatin 20 mg tablet 20 mg PO QHS #90 tab 03/13/18 Syring-Needl,Disp,Insul,0.3 ml [Litetouch Insulin Syringe] 0 ml .ROUTE .MEDSUPPLY 04/01/18 apixaban 5 mg tablet 5 mg PO BID #60 tab 04/11/18 metoprolol tartrate 50 mg tablet 25 mg PO BID #90 tab 05/06/18 pantoprazole 40 mg tablet,delayed release 40 mg PO BID #180 tab 07/01/18 metformin 1,000 mg tablet 1,000 mg PO BID #180 tab 07/16/18 ramipril 10 mg capsule 20 mg PO BID #360 cap 07/16/18 clopidogrel 75 mg tablet 75 mg PO QDAY #90 tab 07/21/18 Ertugliflozin Pidolate [Steglatro] 15 mg PO DAILY 07/26/18 Sitagliptin Phosphate [Januvia] 50 mg PO DAILY 07/26/18 - Patient Allergies Allergies/Adverse Reactions: Allergies Allergy/AdvReac Type Severity Reaction Status Date / Time iodine [Iodine] Allergy Severe Anaphylaxis Verified 08/19/18 09:30 SHELLFISH Allergy Severe Anaphylaxis Uncoded 08/19/18 09:30 Past Medical History - heen HEENT History: Cataracts, Dentures/Partials, Other (please comment) Additional HEENT History: BILATERAL CATARACT REMOVAL, WEARS GLASSES, full dentures Cardiovascular History: Hypertension, Arrhythmia, Hyperlipidemia, Other (please comment) Additional Cardiovasular History: MURMUR, ATRIAL FIBRILLATION. HEART CATH 2014 Respiratory History: Other (please comment) Additional Respiratory History: SEASONAL ALLERGIES Gastrointestinal History: Peptic Ulcer Disease Additional Gastrointestinal History: Hx of appendectomy. Genitourinary History: Other (please comment) Additional Genitourinary History: Hx of renal failure APPROX 8-9 YEARS AGO possibly from diabetic med Endocrine History: Type 2 Diabetes (oral), Type 2 Diabetes (insulin), Hypothyroidism, Other (please comment) Additional Endocrine History: thyroidectomy 09/27/11 Musculoskeletal History: Arthritis, Back Pain, Other (please comment) Prosthesis or Implant: No Additional Musculoskeletal History: RIGHT CARPAL TUNNEL RELEASE, RIGHT KNEE SCOPE, BACK SURGRY (APR 2018) Neurological History: CVA, TIA, Seizures, Other (please comment) Additional Neurological History: CVA 10/2012, 04/2018, TIA 09/10/14 Blood Disorders: Clotting Disorders Psychiatric History: Anxiety Disorders History of Sexually Transmitted Diseases: No Female Reproductive History: Denies History Obstetrical History: Denies History Cancer History: Denies History In Past Year Been Physically Harmed or Verbally Threatened: No History of MDRO: No History of Other Communicable Diseases: No Tobacco Use: Former Smoker Alcohol Use: Rarely In the Past 12 Months, Have Used or Abuse Any Substance: None Previous Surgical History: Yes Type / Date of Surgery: APPY/ R CTR/ COLONOSCOPY/ EGD/ THYROIDECTOMY/ BILATERAL CATARACT REMOVAL, RIGHT KNEE ARTHROSCOPY/L CAROTID ARTERY CLEAN OUT/ BACK. Anesthesia Reactions: No Malignant Hyperthermia: No Significant Family History: Heart disease, Cancer, Diabetes Past Medical History Reviewed: Reviewed - No Changes ROS - Limitations ROS Limitations: No Limitations Constitution: DENIES: Chills, Fever Cardiovascular: REPORTS: Chest Pain. DENIES: Heart Palpitations, Edema Respiratory: REPORTS: Shortness Of Breath. DENIES: Cough Non Productive, Cough Productive Neurological: DENIES: Headache, Numbness, Weakness Gastrointestinal: REPORTS: Denies GI Symptoms Musculoskeletal: DENIES: Calf Pain, Lower Extremity Swelling Genitourinary: REPORTS: Denies Symptoms Eyes: REPORTS: Denies Symptoms. DENIES: Vision Changes ENT: REPORTS: Denies Symptoms Skin: DENIES: Rash Chest Pain PE - General Appearance General Appearance: REPORTS: Alert, Cooperative, No Acute Distress - HEENT HEENT: POSITIVE: Head Inspection Nml, Eyes Inspection Nml, Ears Inspection Nml, Nose Inspection Nml, Pharynx Inspect. 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 Lab Results Reviewed by Me: Yes CBC and BMP: 08/24/18 06:46 08/24/18 06:46 Lab Results:: Laboratory Results 08/24/18 08/24/18 08/24/18 06:46 06:46 06:46 WBC 6.75 RBC 4.20 Hgb 11.9 L Hct 36.3 L MCV 86.4 MCH 28.3 MCHC 32.8 L RDW Std Deviation 47.7 RDW Coeff of Mitchel 15.2 H Plt Count 271 MPV 9.5 Immature Gran % (Auto) 0 Neut % (Auto) 39.8 L Lymph % (Auto) 51.6 H Luna % (Auto) 7.9 Eos % (Auto) 0.6 Baso % (Auto) 0.1 Immature Gran # (Auto) 0 Neut # (Auto) 2.69 Lymph # (Auto) 3.48 Luna # (Auto) 0.53 Eos # (Auto) 0.04 Baso # (Auto) 0.01 WBC Morphology Comment Normal morphology Plt Morphology Comment Normal morphology RBC Morph Comment Normal morphology D-Dimer 0.84 H Sodium 139 Potassium 4.8 Chloride 108 Carbon Dioxide 23 Anion Gap 8 BUN 25 H Creatinine 1.3 H Estimated GFR Investigations Chief BUN/Creatinine Ratio 19.23 Glucose 150 H Calculated Osmolality 294.0 H Calcium 11.1 H Magnesium 1.9 Total Bilirubin 0.3 AST 17 ALT 13 Alkaline Phosphatase 116 CK-MB (CK-2) Troponin I C-Reactive Protein 0.5 NT-Pro-B Natriuret Pep 531 H Total Protein 7.7 Albumin 4.7 Globulin 2.9 Albumin/Globulin Ratio 1.60 Amylase 64 Lipase 59 08/24/18 06:46 WBC RBC Hgb Hct MCV MCH MCHC RDW Std Deviation RDW Coeff of Mitchel Plt Count MPV Immature Gran % (Auto) Neut % (Auto) Lymph % (Auto) Luna % (Auto) Eos % (Auto) Baso % (Auto) Immature Gran # (Auto) Neut # (Auto) Lymph # (Auto) Luna # (Auto) Eos # (Auto) Baso # (Auto) WBC Morphology Comment Plt Morphology Comment RBC Morph Comment D-Dimer Sodium Potassium Chloride Carbon Dioxide Anion Gap BUN Creatinine Estimated GFR BUN/Creatinine Ratio Glucose Calculated Osmolality Calcium Magnesium Total Bilirubin AST ALT Alkaline Phosphatase CK-MB (CK-2) 0.76 Troponin I < 0.012 C-Reactive Protein NT-Pro-B Natriuret Pep Total Protein Albumin Globulin Albumin/Globulin Ratio Amylase Lipase EKG Interpreted/Reviewed By Me:: Yes EKG Interpretation:: POSITIVE: Normal Sinus Rhythm, Normal Rate, Normal QRS, Normal ST/T - Patient's Progress MDM / ED Course: The patient's blood pressure remained elevated on arrival with a systolic blood pressure of 204. The remainder of her vital signs were unremarkable. She is already anticoagulated and therefore no further aspirin was administered. She did receive a third dose of nitroglycerin which did improve her blood pressure down into the 170s and she had resolution of her chest pain and flushed feeling. Her chest x-ray shows normal heart size normal lung lawler. Her initial troponin is normal. Her d-dimer is mildly elevated at 0.84. Her creatinine is 1.3 which is baseline for her. After discussing current results with the patient she started to feel some flushing and a pain in her chest. Repeat blood pressure showed that her systolic had gone back up to 203. She did receive hy dralazine 5 mg IV. Her presentation is most likely related to her significant elevation in blood pressure. Did discuss the patient with Dr. Grant and he is agreed to admit the patient for further care and monitoring. The patient has agreed to this as well. - Consult Counseled: POSITIVE: Patient, Family, RE: Lab Results, RE: Radiology Results, RE: DX Patient Care Time - Estimated PCT Patient Care Time (In Minutes): 35 Vital Signs - Recent Vital Signs Vital Signs: Vital Signs (Last 8 hours) Temp Pulse Pulse Pulse Resp BP Pulse Ox 08/24/18 08:40 77 18 210/101 97 08/24/18 07:15 67 18 178/86 97 08/24/18 07:00 65 08/24/18 06:56 75 08/24/18 06:49 96.7 F L 75 75 75 18 204/97 99 - VS Reviewed Vital Signs Reviewed: Yes Discharge Clinical Impression: Hypertensive crisis, Chest pain Discharge Disposition: Admit to Inpatient Condition: Fair Follow Up With: KENIA ROBB [Primary Care Provider] - Date Decision to Admit to Inpatient: 08/24/18 Time Decision to Admit to Inpatient: 08:30
[2018-08-24] MEDS ORDERED: RAMIPRIL 10 MG CAPSULE PO SCH (09:38)
[2018-08-24] MEDS ORDERED: metFORMIN 500 MG TABLET PO SCH (09:38)
[2018-08-24] MEDS ORDERED: LIDOCAINE W/ SODIUM BICARB 0.5 ML SYR SUBD PRN (09:38)
[2018-08-24] MEDS ORDERED: CLOPIDOGREL 75 MG TABLET PO SCH (09:38)
[2018-08-24] MEDS ORDERED: CALCIUM CARBONATE 500 MG (TUMS) CHEWABLE TABLET PO PRN (09:38)
[2018-08-24] MEDS ORDERED: SITAGLIPTIN PHOSPHATE 50 MG PO SCH (09:38)
[2018-08-24] MEDS ORDERED: ONDANSETRON 4 MG/2 ML VIAL IVP PRN (09:38)
[2018-08-24] MEDS ORDERED: Metoprolol TARTRATE Tab 50 MG TAB PO SCH (09:38)
[2018-08-24] MEDS ORDERED: Apixaban 5 MG TABLET PO SCH (09:38)
[2018-08-24] MEDS ORDERED: PANTOPRAZOLE 40 MG TABLET PO SCH (09:38)
[2018-08-24] MEDS ORDERED: LEVOTHYROXINE 125 MCG TABLET PO SCH (09:38)
[2018-08-24] MEDS ORDERED: MORPHINE SULFATE 2 MG/1 ML IVP PRN (09:38)
[2018-08-24] MEDS ORDERED: ACETAMINOPHEN 325 MG TABLET PO PRN (09:38)
[2018-08-24] MEDS ORDERED: DOCUSATE 100 MG CAPSULE PO PRN (09:38)
[2018-08-24 10:23] VITALS: RESP 16
[2018-08-24] MEDS ORDERED: Apixaban Tab 2.5 MG TABLET PO SCH ×2 (12:45→21:00)
--- NOTE | 2018-08-24 13:29 | PDOC ---
HPI - History of Present Illness Date of Service: 08/24/18 Time of Service: 13:24 Chief Complaint: Flushed and high blood pressure History of Present Illness: This very pleasant 78-year-old female with carotid artery disease status post endarterectomy, history of stroke, diabetes mellitus type II, iodine allergy and shellfish allergy, hypertension, amongst other medical issues. She comes in today with sudden onset of flushing and burning-like sensation in her chest and that was substernal and she noticed it was associated with high blood pressures, and nausea. She did not have any vomiting, fevers, chills, or cough. She stated she's had 2 prior episodes of this over the last year, one about 2 weeks ago. Her systolic blood pressures were as high as the 200s systolic initially in the emergency room. Nitroglycerin seemed to have helped the pain to some degree and also help the blood pressure come down to some degree as well. She thinks Januvia could be playing a role as she just does not feel good since restarting that medication. She was recently switched off of her insulin therapy. In addition, her blood pressures have been decreased in the clinic and she actually stopped her Norvasc here recently. She denies headaches. She denies shortness of breath. She does not smoke. She did not have any vertigo symptoms and did not have any syncopal symptoms. The patient detailed to me in the past she had neurologic workup for this including an EEG which apparently was negative in [place]. Past Medical History Medical History: 1. Cerebrovascular disease with history of stroke in the past. 2. Postsurgical hypothyroidism. 3. Diabetes mellitus type II well controlled. 4. Hypertension. 5. Hypercholesterolemia. 6. Chronic kidney disease, stage III, creatinine baseline about 1.2-1.3 Surgical History: 1. Appendectomy. 2. Right knee scope. 3. thyroidectomy. 4. Left carotid endarterectomy. 5. Lumbar back surgery with Dr. Pierre Pertinent Family History: Significant for heart disease and diabetes. 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 Does not smoke or drink. Spends time in [place] and in [place]. Tobacco Use: Former Smoker In the Past 12 Months, Have Used or Abuse Any of the Following Substance: None Alcohol Use: None Medication / Allergies Home Medications: Home Medications Medication Instructions Recorded Confirmed Type levothyroxine 125 mcg tablet 125 mcg PO QAM #90 tab 09/17/17 08/24/18 Rx Pen Needle, Diabetic [Ulticare Pen 0 amp .ROUTE .MEDSUPPLY 11/21/17 08/24/18 History Needle] atorvastatin 20 mg tablet 20 mg PO QHS #90 tab 03/13/18 08/24/18 Rx Syring-Needl,Disp,Insul,0.3 ml 0 ml .ROUTE .MEDSUPPLY 04/01/18 08/24/18 History [Litetouch Insulin Syringe] metoprolol tartrate 50 mg tablet 25 mg PO BID #90 tab 05/06/18 08/24/18 Rx pantoprazole 40 mg tablet,delayed 40 mg PO BID #180 tab 07/01/18 08/24/18 Rx release metformin 1,000 mg tablet 1,000 mg PO BID #180 tab 07/16/18 08/24/18 Rx ramipril 10 mg capsule 20 mg PO BID #360 cap 07/16/18 08/24/18 Rx clopidogrel 75 mg tablet 75 mg PO QDAY #90 tab 07/21/18 08/24/18 Rx Ertugliflozin Pidolate [Steglatro] 15 mg PO DAILY 07/26/18 08/24/18 History Sitagliptin Phosphate [Januvia] 50 mg PO DAILY 07/26/18 08/24/18 History Apixaban [Eliquis] 2.5 mg PO BID 08/24/18 08/24/18 History Allergies/Adverse Reactions: Allergies Allergy/AdvReac Type Severity Reaction Status Date / Time iodine [Iodine] Allergy Severe Anaphylaxis Verified 08/24/18 10:07 SHELLFISH Allergy Severe Anaphylaxis Uncoded 08/24/18 10:07 Review of Systems - Constitutional Constitutional: REPORTS: Weight Loss (Intentional weight loss of just over 20 pounds through the [facility] weight loss program) - Respiratory Respiratory: REPORTS: Negative System Review - Cardiovascular Cardiovascular: REPORTS: Chest Pain (As per history of present illness) - Gastrointestinal Gastrointestinal / Abdominal: REPORTS: Nausea, Constipation (She says she took a laxative last night and her constipation is resolved) - Genitourinary Genitourinary: REPORTS: Negative System Review - Musculoskeletal Musculoskeletal: REPORTS: Back Pain (Had back surgery in March,, feels like she is doing well from that standpoint) - Neurological Neurologic: REPORTS: Negative System Review, Weakness (Sometimes feels some upper extremity weakness bilaterally with these flushing episodes) - Psychiatric Psychiatric: REPORTS: Negative System Review Exam - Vitals Vital Signs: Vital Signs Temperature 97.1 F Temperature Source Temporal Artery Scan Pulse Rate [Pulse Oximeter 69 Right] Pulse Rate [Telemetry] 77 Pulse Rate 71 Respiratory Rate 16 Blood Pressure [Right Arm] 142/69 Blood Pressure [Left Arm] 164/70 Blood Pressure 149/75 Pulse Ox 97 Oxygen Flow Rate 2 lpm Oxygen Delivery Method Room Air Height 5 ft 4 in Weight 172 lb 12.8 oz - General General Appearance: No Acute Distress, Cooperative - Head Head Exam: Normal Inspection, Normocephalic, Atraumatic - Eye Eye Exam: POSITIVE: No Scleral Icterus - ENT ENT Exam: POSITIVE: Mucous Membranes Moist - Neck Neck Exam: Normal Inspection, No Tenderness, No Lymphadenopathy, No Thyromegaly, JVP is not Raised - Respiratory Respiratory Exam: POSITIVE: Clear to Auscultation - Bilaterally, Breathing Non Labored - Cardiovascular Cardiovascular Exam: POSITIVE: RRR, No Murmur, No Clicks, No Gallops, No Rubs, No JVD - GI/Abdominal GI/Abdominal Exam: POSITIVE: Normal Bowel Sounds, Non Tender, Non Distended, Soft - Rectal Rectal Exam: POSITIVE: Deferred - External Exam: POSITIVE: Deferred Exam: POSITIVE: Deferred - Extremities Extremities Exam: POSITIVE: No Clubbing Present, No Edema Present, No Cyanosis Present - Back Back Exam: POSITIVE: No CVA Tenderness - Neurological Neurological Exam: POSITIVE: Alert, Oriented x 3, No Facial Droop, Speech Intact / Clear, Moves All Extremities Equally - Psychiatric Psychiatric Exam: POSITIVE: Normal Affect, Normal Mood Results - Labs CBC and BMP: 08/24/18 06:46 08/24/18 06:46 Additional Lab Results: Laboratory Results 08/24/18 08/24/18 08/24/18 06:46 06:46 06:46 WBC 6.75 RBC 4.20 Hgb 11.9 L Hct 36.3 L MCV 86.4 MCH 28.3 MCHC 32.8 L RDW Std Deviation 47.7 RDW Coeff of Mitchel 15.2 H Plt Count 271 MPV 9.5 Immature Gran % (Auto) 0 Neut % (Auto) 39.8 L Lymph % (Auto) 51.6 H Anson % (Auto) 7.9 Eos % (Auto) 0.6 Baso % (Auto) 0.1 Immature Gran # (Auto) 0 Neut # (Auto) 2.69 Lymph # (Auto) 3.48 Anson # (Auto) 0.53 Eos # (Auto) 0.04 Baso # (Auto) 0.01 WBC Morphology Comment Normal morphology Plt Morphology Comment Normal morphology RBC Morph Comment Normal morphology D-Dimer 0.84 H Sodium 139 Potassium 4.8 Chloride 108 Carbon Dioxide 23 Anion Gap 8 BUN 25 H Creatinine 1.3 H Estimated GFR Crnp BUN/Creatinine Ratio 19.23 Glucose 150 H Calculated Osmolality 294.0 H Calcium 11.1 H Magnesium 1.9 Total Bilirubin 0.3 AST 17 ALT 13 Alkaline Phosphatase 116 CK-MB (CK-2) Troponin I C-Reactive Protein 0.5 NT-Pro-B Natriuret Pep 531 H Total Protein 7.7 Albumin 4.7 Globulin 2.9 Albumin/Globulin Ratio 1.60 Amylase 64 Lipase 59 08/24/18 08/24/18 06:46 12:45 WBC RBC Hgb Hct MCV MCH MCHC RDW Std Deviation RDW Coeff of Mitchel Plt Count MPV Immature Gran % (Auto) Neut % (Auto) Lymph % (Auto) Anson % (Auto) Eos % (Auto) Baso % (Auto) Immature Gran # (Auto) Neut # (Auto) Lymph # (Auto) Anson # (Auto) Eos # (Auto) Baso # (Auto) WBC Morphology Comment Plt Morphology Comment RBC Morph Comment D-Dimer Sodium Potassium Chloride Carbon Dioxide Anion Gap BUN Creatinine Estimated GFR BUN/Creatinine Ratio Glucose Calculated Osmolality Calcium Magnesium Total Bilirubin AST ALT Alkaline Phosphatase CK-MB (CK-2) 0.76 Troponin I < 0.012 0.082 H C-Reactive Protein NT-Pro-B Natriuret Pep Total Protein Albumin Globulin Albumin/Globulin Ratio Amylase Lipase - EKG Data -: EKG Interpreted by Me Rate: Normal EKG Shows Normal: Sinus Rhythm - EKG Data EKG Interpretation: Nonspecific ST-T Wave Changes (Flattening of T waves in 1 and aVL.) - Imaging Status: Image Reviewed by Me (Chest x-ray done, on my view I thought this was a negative study for pneumonia.) Assessment and Plan - Patient Problems (1) Hypertensive crisis Current Visit: Yes Status: Acute Code(s): I16.9 - Hypertensive crisis, unspecified (2) Carotid artery disease Current Visit: Yes Status: Acute Comment: Status post endarterectomy. Recent Doppler studies apparently showed negative findings. Code(s): I77.9 - Disorder of arteries and arterioles, unspecified Qualifiers: Carotid artery disease type: unspecified Laterality: left Qualified Code(s): I77.9 - Disorder of arteries and arterioles, unspecified (3) Diabetes mellitus, type 2 Current Visit: No Status: Chronic Qualifiers: Diabetes mellitus emt intermediate insulin use: without half-way use Diabetes mellitus complication status: without complication Qualified Code(s): E11.9 - Type 2 diabetes mellitus without complications (4) Post-surgical hypothyroidism Current Visit: Yes Status: Chronic Onset Date: 10/11/15 Code(s): E89.0 - Postprocedural hypothyroidism (5) Hypercholesterolemia Current Visit: Yes Status: Chronic Code(s): E78.0 - Pure hypercholesterolemia (6) History of DVT (deep vein thrombosis) Current Visit: Yes Status: Acute Code(s): Z86.718 - Personal history of other venous thrombosis and embolism - Assessment / Plan Additional Assessment/Plan Details: Admit patient problems patient On my review of her most recent stress test in 2017, she had what appeared to be an adrenal adenoma. Given her contrast allergy and her diabetes, not sure the best way that we can image us and we may have to look into this tomorrow to evaluate these adrenal glands more specifically. Get urine metanephrine and serum metanephrine studies, TSH and free T4, and we await those findings. She notably has hypercalcemia. As well. She is not on any extra calcium supplementation per her history. Not sure why this goes high, but I will check a PTH. I will check a vitamin D level as well. Blood pressure medications including nitroglycerin Patient is full code. Discussed in detail with the patient. I am to hold off on stress testing her initially, and we'll see what her troponin show Patient agrees with the plan above.
[2018-08-24] MEDS ORDERED: Glucagon Inj Vial 1 MG/ML VIAL IM PRN (13:37)
[2018-08-24] MEDS ORDERED: DEXTROSE 31 GM GEL PO PRN (13:37)
[2018-08-24] MEDS ORDERED: DEXTROSE 50%-WATER SYRINGE 50 ML SYRINGE IVP PRN (13:37)
[2018-08-24] MEDS ORDERED: Insulin Sliding Scale Protocol SUBCUT PRN (13:37)
[2018-08-24] MEDS ORDERED: LABETALOL 20 MG/4 ML (5 MG/1 ML) SYRINGE IVP PRN (13:39)
[2018-08-24] MEDS ORDERED: Insulin Lispro Flexpen 300 UNIT/3 ML INSULN.PEN SUBCUT SCH (16:00)
[2018-08-24 16:56] VITALS: BP 171/81; TEMP 98.3; O2SAT 93
--- NOTE | 2018-08-24 17:19 | DCSUMMARY ---
Hospitalization Summary Admit Date: 08/24/2018 Discharge Date: 08/24/18 Primary Diagnosis:: hypertensive crisis, chest pain Hospital Course: Very pleasant 78-year-old female that was admitted earlier this morning in the setting of hypertensive crisis/hypertensive urgency with systolic pressures in the 200s associated with a flushing-like chest pain with radiation and weakness into the arms bilaterally. The episodes come and go. They've responded minimally to nitroglycerin sublingually, and we admitted the patient, and the patient has slightly elevated troponin now after it was normal in the emergency room. It went to 0.082, and although likely does not represent significant or huge area of myocardial damage, my concern is that the patient may possibly rule in for a non-ST elevation myocardial infarction and may need further workup such as echocardiogram which I cannot do here until Saturday, and may need stressed which would not be a good idea to do in the setting of positive troponins. It is difficult for me to say if this is all related to blood pressure problems, some sort of hormonal problem or possible adrenal gland problem. I do have urine metanephrines ordered along with serum metanephrines. Interestingly, TSH is suppressed and free T4 is elevated suggesting hyperthyroidism. The patient is on Synthroid replacement, although there is some discrepancy as to whether she is on 100 or 125 g. I could not confirm this in our system back in 2017 in terms of prescriptions from the [facility] system and so at this point I am lowering the dose to 75 g by mouth daily. She will need that retested in the next 4-6 weeks. She currently does complain of the chest flushing-type sensation with radiation to her arms. She is agreeable to the transfer. I spoke with her pigment grinder who happened to be blocking machine operator second and he agreed to accept the patient at [facility]. Other issues are the following: Patient has diabetes, managed with insulin dose, correction dose scale. Metformin was continued but other oral agents were held. The thyroid issues as discussed above. Her creatinine is at baseline at 1.3, and nothing different was done to manage chronic kidney disease. She had an adrenal gland noticed on her prior stress test and a CT scan in 2012. My plan for that was to discuss with radiology tomorrow as I do not have one in the hospital on the weekends, as my experience tends to be that we characterize those lesions with contrast, but the patient is not tolerant of iodine. I'm a little reluctant to order an MRI scan with gadolinium due to diabetes, but defer this to her primary physician and to the physicians at [facility]. Patient was agreeable to the transfer, Assessment and Plan: 1. As per discharge assessments noted 2. Disposition: Patient is discharged to [facility] 3. Condition on discharge, stable and improved. Condition could deteriorate and she does have chest pains and very minimally elevated troponin 4. Diet: regular diet 5. Activities: Per hospital in [place] 6. Follow-Up: 1. Dr. Dill or Aida Dill in a week post discharge 2. 7. Medications at the Time of Discharge: Active Medications Generic Name Dose Route Start Last Admin Trade Name Freq PRN Reason Stop Dose Admin Acetaminophen 650 mg 08/24/18 09:38 Tylenol PO Q6H PRN Pain or Fever Apixaban 2.5 mg 08/24/18 12:45 08/24/18 14:17 Eliquis PO 2.5 mg BID DAMIEN Administration Apixaban 2.5 mg 08/24/18 21:00 Eliquis PO BID DAMIEN Atorvastatin Calcium 20 mg 08/24/18 21:00 Lipitor PO BEDTIME DAMIEN Calcium Carbonate 1 - 2 tab 08/24/18 09:38 Tums PO Q6H PRN Heartburn Clopidogrel Bisulfate 75 mg 08/24/18 09:38 08/24/18 12:27 Plavix PO 75 mg DAILY DAMIEN Administration Dextrose 30 - 40 ml 08/24/18 13:37 Dextrose 50% Inj IVP Q15M PRN BG < 70 unable to take oral Docusate Sodium 100 mg 08/24/18 09:38 Colace PO BID PRN Constipation Glucagon 1 mg 08/24/18 13:37 Glucagen IM ONCE PRN BG < 70 NPO & NO IV Glucose 15 - 20 gm 08/24/18 13:37 Insta-Glucose Gel PO Q15M PRN BG < 70 Sodium Chloride 25 mls @ 200 mls/hr 08/24/18 09:38 Normal Saline 0.9% IV .Post Infusion PRN No Primary IV for Flush ONLY Insulin Human Lispro 0 - 14 unit 08/24/18 16:00 08/24/18 16:54 Humalog Flexpen Inj SUBCUT Not Given AC HS DAMIEN Protocol Labetalol HCl 20 mg 08/24/18 13:39 Normodyne Inj IVP Q4H PRN SBP Greater Than 170, DBP>105 Levothyroxine Sodium 75 mcg 08/25/18 05:30 Synthroid PO DAILY@0530 DAMIEN Lidocaine HCl 0.5 ml 08/24/18 09:38 Lidocaine Buffered Inj SUBD ONCE PRN IV Starts Metformin HCl 1,000 mg 08/24/18 09:38 08/24/18 12:27 Glucophage Tab PO 1,000 mg BID MEALS DAMIEN Administration Metoprolol Tartrate 25 mg 08/24/18 09:38 08/24/18 12:26 Lopressor Tab PO 25 mg BID DAMIEN Administration Morphine Sulfate 2 mg 08/24/18 09:38 Morphine Inj IVP Q4H PRN Pain Nitroglycerin 1 tab 08/24/18 13:38 08/24/18 17:07 Nitrostat Sl 0.4mg Tab SL 1 tab Q5M PRN Administration Chest Pain Nitroglycerin 1 tab 08/24/18 17:06 Nitrostat Sl 0.4mg Tab SL Q5M PRN Chest Pain Non-Formulary Medication 15 mg 08/24/18 09:38 08/24/18 12:28 Ertugliflozin Pidolate [Steglatro] PO Not Given DAILY [facility] Non-Formulary Medication 50 mg 08/24/18 09:38 08/24/18 12:29 Sitagliptin Phosphate [Januvia] PO Not Given DAILY [facility] Ondansetron HCl 4 mg 08/24/18 09:38 Zofran Inj IVP Q4H PRN NAUSEA / VOMITING Pantoprazole Sodium 40 mg 08/24/18 09:38 08/24/18 12:28 Protonix PO 40 mg BID@0700,2100 [facility] Administration Ramipril 20 mg 08/24/18 09:38 08/24/18 12:28 Altace PO 20 mg BID DAMIEN Administration Exam - Vitals Vital Signs: Vital Signs Temperature 98.3 F Temperature Source Temporal Artery Scan Pulse Rate [Pulse Oximeter 75 Right] Pulse Rate [Telemetry] 75 Pulse Rate 68 Respiratory Rate 16 Blood Pressure [Right Arm] 171/81 Blood Pressure [Left Arm] 164/70 Blood Pressure 149/75 Pulse Ox 93 Oxygen Flow Rate 2 lpm Oxygen Delivery Method Room Air Height 5 ft 4 in Weight 172 lb 12.8 oz - General General Appearance: No Acute Distress, Cooperative - Eye Eye Exam: POSITIVE: No Scleral Icterus - ENT ENT Exam: POSITIVE: Mucous Membranes Moist - Neck Neck Exam: JVP is not Raised - Respiratory Respiratory Exam: POSITIVE: Clear to Auscultation - Bilaterally, Breathing Non Labored - Cardiovascular Cardiovascular Exam: POSITIVE: RRR, No Murmur, No Clicks, No Gallops, No Rubs, No JVD - GI/Abdominal GI/Abdominal Exam: POSITIVE: Normal Bowel Sounds, Non Tender, Non Distended, Soft - Extremities Extremities Exam: POSITIVE: No Clubbing Present, No Edema Present, No Cyanosis Present - Neurological Neurological Exam: POSITIVE: Alert, Oriented x 3, No Facial Droop, Speech Intact / Clear, Moves All Extremities Equally Data Peritnent Studies: Laboratory Results 08/24/18 08/24/18 08/24/18 06:46 06:46 06:46 WBC 6.75 RBC 4.20 Hgb 11.9 L Hct 36.3 L MCV 86.4 MCH 28.3 MCHC 32.8 L RDW Std Deviation 47.7 RDW Coeff of Mitchel 15.2 H Plt Count 271 MPV 9.5 Immature Gran % (Auto) 0 Neut % (Auto) 39.8 L Lymph % (Auto) 51.6 H [place] % (Auto) 7.9 Eos % (Auto) 0.6 Baso % (Auto) 0.1 Immature Gran # (Auto) 0 Neut # (Auto) 2.69 Lymph # (Auto) 3.48 [place] # (Auto) 0.53 Eos # (Auto) 0.04 Baso # (Auto) 0.01 WBC Morphology Comment Normal morphology Plt Morphology Comment Normal morphology RBC Morph Comment Normal morphology D-Dimer 0.84 H Sodium 139 Potassium 4.8 Chloride 108 Carbon Dioxide 23 Anion Gap 8 BUN 25 H Creatinine 1.3 H Estimated GFR House Shorer BUN/Creatinine Ratio 19.23 Glucose 150 H Calculated Osmolality 294.0 H Calcium 11.1 H Magnesium 1.9 Total Bilirubin 0.3 AST 17 ALT 13 Alkaline Phosphatase 116 CK-MB (CK-2) Troponin I C-Reactive Protein 0.5 NT-Pro-B Natriuret Pep 531 H Total Protein 7.7 Albumin 4.7 Globulin 2.9 Albumin/Globulin Ratio 1.60 Amylase 64 Lipase 59 Vitamin D 25-Hydroxy TSH Free T4 08/24/18 08/24/18 08/24/18 06:46 12:45 12:45 WBC RBC Hgb Hct MCV MCH MCHC RDW Std Deviation RDW Coeff of Mitchel Plt Count MPV Immature Gran % (Auto) Neut % (Auto) Lymph % (Auto) [place] % (Auto) Eos % (Auto) Baso % (Auto) Immature Gran # (Auto) Neut # (Auto) Lymph # (Auto) [place] # (Auto) Eos # (Auto) Baso # (Auto) WBC Morphology Comment Plt Morphology Comment RBC Morph Comment D-Dimer Sodium Potassium Chloride Carbon Dioxide Anion Gap BUN Creatinine Estimated GFR BUN/Creatinine Ratio Glucose Calculated Osmolality Calcium Magnesium Total Bilirubin AST ALT Alkaline Phosphatase CK-MB (CK-2) 0.76 Troponin I < 0.012 0.082 H C-Reactive Protein NT-Pro-B Natriuret Pep Total Protein Albumin Globulin Albumin/Globulin Ratio Amylase Lipase Vitamin D 25-Hydroxy Pending TSH 0.125 L Free T4 2.24 H Procedures: [address] [facility] [place] [address] PH: DD: [phone] FAX: [phone] ~DIAGNOSTIC IMAGING REPORT~ Patient: Julia Viveros : 1940 Sex: F Age: 78 Exam Name: XR CXR 1VW Exam Date: 08/24/18 Report # : [id number] CPT Code: 89724 EMR/MR #: [id number] Ordering: PRIMO AGUILAR Admiting: Primary: Esteban Dill MD Attending: -------- Signed EXAM: XR Chest, 1 View CLINICAL HISTORY: ITS.REASON Chest Pain Physician Notes: Tech Comments: TECHNIQUE: Frontal view of the chest. COMPARISON: 04/12/18 FINDINGS: Lungs: Unremarkable. No consolidation. Pleural space: Unremarkable. No pneumothorax. Heart: Unremarkable. No cardiomegaly. Mediastinum: Unremarkable. Bones/joints: Unremarkable. Tubes, lines and devices: Overlying chest leads partly obscure portion of the chest IMPRESSION: Stable chest. No acute pulmonary disease Dictated By: Nella Mcintosh MD Signed By: 08/24/18 0802 Nella Mcintosh MD Patient Problems - Patient Problem List (1) Hypertensive crisis Current Visit: Yes Status: Acute Code(s): I16.9 - Hypertensive crisis, unspecified Category: Medical (2) Elevated troponin Current Visit: Yes Status: Acute Code(s): R74.8 - Abnormal levels of other serum enzymes Category: Medical (3) Carotid artery disease Current Visit: Yes Status: Acute Code(s): I77.9 - Disorder of arteries and arterioles, unspecified Qualifiers: Carotid artery disease type: unspecified Laterality: left Qualified Code(s): I77.9 - Disorder of arteries and arterioles, unspecified Category: Medical (4) Diabetes mellitus, type 2 Current Visit: No Status: Chronic Comment: Recent change from lantus pen to vial lantus with noted low FBS and nocturnal low sugar (40). Increased bruising with syringe vs pen administration Qualifiers: Diabetes mellitus half-way insulin use: without half-way use Diabetes mellitus complication status: without complication Qualified Code(s): E11.9 - Type 2 diabetes mellitus without complications Category: Medical (5) Post-surgical hypothyroidism Current Visit: Yes Status: Chronic Onset Date: 10/11/15 Code(s): E89.0 - Postprocedural hypothyroidism Category: Medical (6) Hypercholesterolemia Current Visit: Yes Status: Chronic Code(s): E78.0 - Pure hypercholesterolemia Category: Medical (7) History of DVT (deep vein thrombosis) Current Visit: Yes Status: Acute Code(s): Z86.718 - Personal history of other venous thrombosis and embolism Category: Medical
[2018-08-24] MEDS ORDERED: ATORVASTATIN 20 MG TABLET PO SCH (21:00)
[2018-08-25] MEDS ORDERED: LEVOTHYROXINE 75 MCG TABLET PO SCH (05:30)
[2018-08-27 08:07] LABS: METANEPHRINE FREE <0.20 nmol/L (<0.50)
== END 2018-08-24 17:57 | disposition short-term general hospital (02) ==
LOC: ER 06:49 → MED/SURG 06:49
PROVIDERS: ADMIT Family Medicine; ATTEND Family Medicine

== ENCOUNTER 2019-02-04 17:50 | Observation (INO) ==
[2019-02-04] MEDS ORDERED: Sodium Chloride 0.9% 1,000 ML PRIMARY IV ONE (18:13)
[2019-02-04] MEDS ORDERED: MORPHINE SULFATE 2 MG/1 ML IVP ONE (18:13)
[2019-02-04] MEDS ORDERED: LORazepam 2 MG/1 ML VIAL IVP ONE (18:13)
[2019-02-04] MEDS ORDERED: ONDANSETRON 4 MG/2 ML VIAL IVP ONE (18:13)
--- NOTE | 2019-02-04 18:17 | PDOC ---
Chest Pain HPI - General Chief Complaint: Chest Pain Stated Complaint: chest pain Date Seen by Provider: 02/04/19 Time Seen by Provider: 18:05 Source: Patient Exam Limitations: POSITIVE: No limitations Treatment Prior to Arrival: REPORTS: None Nurse's Notes Reviewed & Considered: Yes - Patient Home Medications Home Medications: Home Medications Pen Needle, Diabetic [Ulticare Pen Needle] 0 amp .ROUTE .MEDSUPPLY 11/21/17 ramipril 10 mg capsule 20 mg PO BID #360 cap 07/16/18 clopidogrel 75 mg tablet 75 mg PO QDAY #90 tab 07/21/18 Hydralazine HCl 25 mg PO Q6H PRN 08/31/18 amlodipine 10 mg tablet 10 mg PO DAILY #90 tab 09/26/18 lorazepam 0.5 mg tablet 0.5 mg PO Q6H PRN #60 tab 09/26/18 carvedilol 12.5 mg tablet 25 mg PO BID tab 12/02/18 atorvastatin 20 mg tablet 20 mg PO QHS #90 tab 12/12/18 levothyroxine 100 mcg tablet 100 mcg PO DIRECTED tab 01/02/19 acetaminophen 500 mg tablet 500 mg PO Q6H PRN 01/28/19 hydrochlorothiazide 25 mg tablet 12.5 mg PO QDAY tab 01/28/19 Blood Sugar Diagnostic [Accu-Chek Juliane Plus test strp] 0 ea .ROUTE .MEDSUPPLY 02/04/19 Insulin Glargine,Hum.rec.anlog [Toujeo Max U-300 SoloStar] 17 unit SUBCUT QDAY 02/04/19 - Patient Allergies Allergies/Adverse Reactions: Allergies Allergy/AdvReac Type Severity Reaction Status Date / Time iodine [Iodine] Allergy Severe Anaphylaxis Verified 02/04/19 17:53 SHELLFISH Allergy Severe Anaphylaxis Uncoded 02/04/19 17:53 Past Medical History - heen HEENT History: Cataracts, Dentures/Partials, Other (please comment) Additional HEENT History: BILATERAL CATARACT REMOVAL, WEARS GLASSES, full dentures Cardiovascular History: Hypertension, Arrhythmia, Hyperlipidemia, Other (please comment) Additional Cardiovasular History: MURMUR, ATRIAL FIBRILLATION. HEART CATH 2014 Respiratory History: Other (please comment) Additional Respiratory History: SEASONAL ALLERGIES Gastrointestinal History: Peptic Ulcer Disease Additional Gastrointestinal History: Hx of appendectomy. Genitourinary History: Other (please comment) Additional Genitourinary History: Hx of renal failure APPROX 8-9 YEARS AGO possibly from diabetic med Endocrine History: Type 2 Diabetes (oral), Type 2 Diabetes (insulin), Hypothyroidism, Other (please comment) Additional Endocrine History: thyroidectomy 09/27/11 Musculoskeletal History: Arthritis, Back Pain, Other (please comment) Prosthesis or Implant: No Additional Musculoskeletal History: RIGHT CARPAL TUNNEL RELEASE, RIGHT KNEE SCOPE, BACK SURGRY (APR 2018) Neurological History: CVA, TIA, Seizures, Other (please comment) Additional Neurological History: CVA 10/2012, 04/2018, TIA 09/10/14 Blood Disorders: Clotting Disorders Psychiatric History: Anxiety Disorders History of Sexually Transmitted Diseases: No Cancer History: Denies History History of MDRO: No History of Other Communicable Diseases: No Alcohol Use: Rarely In the Past 12 Months, Have Used or Abuse Any Substance: None Previous Surgical History: Yes Type / Date of Surgery: APPY/ R CTR/ COLONOSCOPY/ EGD/ THYROIDECTOMY/ BILATERAL CATARACT REMOVAL, RIGHT KNEE ARTHROSCOPY/L CAROTID ARTERY CLEAN OUT/ BACK. Anesthesia Reactions: No Malignant Hyperthermia: No Significant Family History: Heart disease, Cancer, Diabetes ROS - Limitations ROS Limitations: No Limitations Constitution: REPORTS: Denies Symptoms Cardiovascular: REPORTS: Chest Pain Respiratory: REPORTS: Hurts To Breathe, Shortness Of Breath Gastrointestinal: REPORTS: Denies GI Symptoms Endocrine: REPORTS: Denies Symptoms Musculoskeletal: REPORTS: Denies MS Symptoms Genitourinary: REPORTS: Denies Symptoms Eyes: REPORTS: Denies Symptoms ENT: REPORTS: Denies Symptoms Skin: REPORTS: Denies Skin Symptoms Lympathic: REPORTS: Denies Lympathic Symptoms Immunologic: POSITIVE: Denies Symptoms Psychiatric: POSITIVE: Denies Psych Symptoms Chest Pain PE - General Appearance General Appearance: REPORTS: Alert, Cooperative, No Evidence of Trauma, Moderate Distress - HEENT HEENT: POSITIVE: Head Inspection Nml, Eyes Inspection Nml, Ears Inspection Nml, Nose Inspection Nml, Oral/Dental Inspect. Nml, Pharynx Inspect. Nml, PERRL, EOMI - Neck Neck: REPORTS: Normal Inspection - Respiratory Respiratory: REPORTS: No Respiratory Distress, Breath Sounds Normal, Chest Non- Tender - Cardiovascular Cardiovascular: REPORTS: Regular Rate and Rhythm, Heart Sounds Normal, Strong Pulses, No Murmur, No Gallop, No Friction Rub, No JVD Peripheral Pulses: Radial (L): 4+ - Abdomen Abdomen: Soft: (All Quadrants), Normal Bowel Sounds: (All Quadrants), Denies Tenderness: (All Quadrants), No Splenomegaly: (All Quadrants), No Hepatomegaly: (All Quadrants), No Guarding: (All Quadrants), No Rebound: (All Quadrants), No Palpable Pulse: (All Quadrants), No Palpabale Mass: (All Quadrants), No Distention: (All Quadrants), No Rigidity: (All Quadrants) - Skin Skin: REPORTS: Intact, Normal For Race, Warm, Dry, No Rash - Extremities Extremity: Non-Tender: (All Extremities), Normal ROM: (All Extremities), Normal Inspection: (All Extremities), Pelvis Stable: (All Extremities) - Neurological / Psychological Neurological: POSITIVE: Affect Apporpriate, Oriented X3, Motor Normal, Sensation Normal Chest Pain Progress - Results Reviewed by me Xrays/CTs/US Reviewed by me: Yes Discussed with Radiologist: No Lab Results Reviewed by Me: Yes CBC and BMP: 02/04/19 17:50 02/05/19 04:30 Lab Results:: Laboratory Results 02/04/19 02/04/19 02/04/19 16:20 17:50 17:50 WBC 6.10 RBC 3.92 L Hgb 12.2 Hct 37.5 MCV 95.7 MCH 31.1 H MCHC 32.5 L RDW Std Deviation 52.7 H RDW Coeff of Mitchel 15.3 H Plt Count 233 MPV 9.8 Immature Gran % (Auto) 0.2 Neut % (Auto) 51.3 Lymph % (Auto) 36.9 [place] % (Auto) 10.2 Eos % (Auto) 1.1 Baso % (Auto) 0.3 Immature Gran # (Auto) 0.01 Neut # (Auto) 3.13 Lymph # (Auto) 2.25 [place] # (Auto) 0.62 Eos # (Auto) 0.07 Baso # (Auto) 0.02 WBC Morphology Comment Normal morphology Plt Morphology Comment Normal morphology RBC Morph Comment Normal morphology PT 12.8 H INR 1.11 D-Dimer 411 VBG pH VBG pCO2 VBG HCO3 VBG Base Excess Sodium Potassium Chloride Carbon Dioxide Anion Gap BUN Creatinine Estimated GFR BUN/Creatinine Ratio Glucose Calculated Osmolality Lactic Acid Calcium Magnesium Total Bilirubin AST ALT Alkaline Phosphatase Total Creatine Kinase CK-MB (CK-2) Troponin I Handheld NT-Pro-B Natriuret Pep Total Protein Albumin Globulin Albumin/Globulin Ratio TSH Free T4 Ur Collection Type Clean catch urine Urine Color Yellow Urine Clarity Slightly cloudy Urine pH 5.5 Ur Specific [place] <=1.005 U Specif Grav (Refrac) Urine Protein Negative Urine Glucose (UA) Negative Urine Ketones Negative Urine Occult Blood Negative Urine Nitrate Negative Urine Bilirubin Negative Urine Urobilinogen 0.2 Ur Leukocyte Esterase Moderate Urine RBC None Urine WBC 10-15 Ur Squamous Epith Cells Many Ur Renal Epithelial Cell Few Urine Crystals None Urine Bacteria Few Urine Casts None Urine Mucus None Urine Trichomonas None Urine Yeast None Ur Culture Indicated? Culture not set Urine Opiates Screen Ur Buprenorphine Ur Oxycodone Screen Urine Methadone Screen Ur Propoxyphene Screen Barbiturate Screen U Tricyclic Antidepress Phencyclidine Screen Amphetamines Screen U Methamphetamines Scrn Benzodiazepines Screen Cocaine Screen U Marijuana (THC) Screen 02/04/19 02/04/19 02/04/19 17:50 17:50 17:50 WBC RBC Hgb Hct MCV MCH MCHC RDW Std Deviation RDW Coeff of Mitchel Plt Count MPV Immature Gran % (Auto) Neut % (Auto) Lymph % (Auto) [place] % (Auto) Eos % (Auto) Baso % (Auto) Immature Gran # (Auto) Neut # (Auto) Lymph # (Auto) [place] # (Auto) Eos # (Auto) Baso # (Auto) WBC Morphology Comment Plt Morphology Comment RBC Morph Comment PT INR D-Dimer VBG pH VBG pCO2 VBG HCO3 VBG Base Excess Sodium 140 Potassium 5.2 Chloride 110 Carbon Dioxide 21 L Anion Gap 9 BUN 41 H Creatinine 1.6 H Estimated GFR Information Support Project Manager BUN/Creatinine Ratio 25.62 H Glucose 178 H Calculated Osmolality 303.0 H Lactic Acid 1.1 Calcium 10.7 Magnesium 2.0 Total Bilirubin 0.3 AST 39 ALT 48 Alkaline Phosphatase 91 Total Creatine Kinase 57 CK-MB (CK-2) Cancelled Troponin I Handheld NT-Pro-B Natriuret Pep Total Protein 7.4 Albumin 4.4 Globulin 3.0 Albumin/Globulin Ratio 1.40 TSH 6.94 H Free T4 1.24 Ur Collection Type Urine Color Urine Clarity Urine pH Ur Specific [place] U Specif Grav (Refrac) Urine Protein Urine Glucose (UA) Urine Ketones Urine Occult Blood Urine Nitrate Urine Bilirubin Urine Urobilinogen Ur Leukocyte Esterase Urine RBC Urine WBC Ur Squamous Epith Cells Ur Renal Epithelial Cell Urine Crystals Urine Bacteria Urine Casts Urine Mucus Urine Trichomonas Urine Yeast Ur Culture Indicated? Urine Opiates Screen Ur Buprenorphine Ur Oxycodone Screen Urine Methadone Screen Ur Propoxyphene Screen Barbiturate Screen U Tricyclic Antidepress Phencyclidine Screen Amphetamines Screen U Methamphetamines Scrn Benzodiazepines Screen Cocaine Screen U Marijuana (THC) Screen 02/04/19 02/04/19 02/04/19 17:50 17:50 17:50 WBC RBC Hgb Hct MCV MCH MCHC RDW Std Deviation RDW Coeff of Mitchel Plt Count MPV Immature Gran % (Auto) Neut % (Auto) Lymph % (Auto) [place] % (Auto) Eos % (Auto) Baso % (Auto) Immature Gran # (Auto) Neut # (Auto) Lymph # (Auto) [place] # (Auto) Eos # (Auto) Baso # (Auto) WBC Morphology Comment Plt Morphology Comment RBC Morph Comment PT INR D-Dimer VBG pH VBG pCO2 VBG HCO3 VBG Base Excess Sodium Potassium Chloride Carbon Dioxide Anion Gap BUN Creatinine Estimated GFR BUN/Creatinine Ratio Glucose Calculated Osmolality Lactic Acid Calcium Magnesium Total Bilirubin AST ALT Alkaline Phosphatase Total Creatine Kinase CK-MB (CK-2) 1.06 Troponin I Handheld 0.000 NT-Pro-B Natriuret Pep 261 Total Protein Albumin Globulin Albumin/Globulin Ratio TSH Free T4 Ur Collection Type Urine Color Urine Clarity Urine pH Ur Specific [place] U Specif Grav (Refrac) Urine Protein Urine Glucose (UA) Urine Ketones Urine Occult Blood Urine Nitrate Urine Bilirubin Urine Urobilinogen Ur Leukocyte Esterase Urine RBC Urine WBC Ur Squamous Epith Cells Ur Renal Epithelial Cell Urine Crystals Urine Bacteria Urine Casts Urine Mucus Urine Trichomonas Urine Yeast Ur Culture Indicated? Urine Opiates Screen Ur Buprenorphine Ur Oxycodone Screen Urine Methadone Screen Ur Propoxyphene Screen Barbiturate Screen U Tricyclic Antidepress Phencyclidine Screen Amphetamines Screen U Methamphetamines Scrn Benzodiazepines Screen Cocaine Screen U Marijuana (THC) Screen 02/04/19 02/04/19 18:28 18:51 WBC RBC Hgb Hct MCV MCH MCHC RDW Std Deviation RDW Coeff of Mitchel Plt Count MPV Immature Gran % (Auto) Neut % (Auto) Lymph % (Auto) [place] % (Auto) Eos % (Auto) Baso % (Auto) Immature Gran # (Auto) Neut # (Auto) Lymph # (Auto) [place] # (Auto) Eos # (Auto) Baso # (Auto) WBC Morphology Comment Plt Morphology Comment RBC Morph Comment PT INR D-Dimer VBG pH 7.36 VBG pCO2 36 L VBG HCO3 21 L VBG Base Excess -5 L Sodium Potassium Chloride Carbon Dioxide Anion Gap BUN Creatinine Estimated GFR BUN/Creatinine Ratio Glucose Calculated Osmolality Lactic Acid Calcium Magnesium Total Bilirubin AST ALT Alkaline Phosphatase Total Creatine Kinase CK-MB (CK-2) Troponin I Handheld NT-Pro-B Natriuret Pep Total Protein Albumin Globulin Albumin/Globulin Ratio TSH Free T4 Ur Collection Type Voided specimen Urine Color Urine Clarity Urine pH Ur Specific [place] U Specif Grav (Refrac) 1.005 Urine Protein Urine Glucose (UA) Urine Ketones Urine Occult Blood Urine Nitrate Urine Bilirubin Urine Urobilinogen Ur Leukocyte Esterase Urine RBC Urine WBC Ur Squamous Epith Cells Ur Renal Epithelial Cell Urine Crystals Urine Bacteria Urine Casts Urine Mucus Urine Trichomonas Urine Yeast Ur Culture Indicated? Urine Opiates Screen Negative Ur Buprenorphine Negative Ur Oxycodone Screen Negative Urine Methadone Screen Negative Ur Propoxyphene Screen Negative Barbiturate Screen Negative U Tricyclic Antidepress Negative Phencyclidine Screen Negative Amphetamines Screen Negative U Methamphetamines Scrn Negative Benzodiazepines Screen Positive H Cocaine Screen Negative U Marijuana (THC) Screen Negative EKG Interpreted/Reviewed By Me:: Yes (sinus rhythm, 60 bpm, no ST changes.) EKG Interpretation:: POSITIVE: Normal Sinus Rhythm, Normal ST/T - Patient's Progress Pain Medication Addressed: POSITIVE: Yes Re-Examine Time: 19:15 Status: POSITIVE: Improved MDM / ED Course: Patient was evaluated, an IV started, blood drawn and sent to the lab for studi es, chest x-ray and EKG were obtained. Findings: CBC shows white count hemoglobin and hematocrit and platelets are normal. Coag studies show PT of 12.8, INR 1.11, d-dimer is 411. Venous blood gas shows pH of 7.36, PCO2 36, bicarbonate 21, base excess is -5. CMP shows abnormalities with a CO2 of 21, BUN of 41, creatinine 1.6, glucose of 178, the remainder the panel is normal. Troponin is 0.000, CK-MB is 1.06, total CK of 57. TSH is elevated at 6.94, free T4 is 1.24, urinalysis is negative, urine drug screen is positive for benzodiazepines. Chest x-ray shows no acute cardiopulmonary decompensation per my interpretation. EKG, per my interpretation, shows sinus rhythm with a rate of 60 beats a minute and no ST elevations. Assessment: Chest pain with normal enzymes and EKG. Plan: Patient being admitted by the hospitalist for rule out myocardial infarction. Quality Measure Initiative: CP/AMI: POSITIVE: EKG Quality Measure Initiative: CAP: POSITIVE: CXR or CT - Consult Consult (If Yes, Name of Consulting MD & Time Called): Yes (Dr. Hales) Consulting MD will see pt:: POSITIVE: [facility] [place] Patient Care Time - Estimated PCT Patient Care Time (In Minutes): 45 Vital Signs - VS Reviewed Vital Signs Reviewed: Yes Discharge Clinical Impression: Chest pain Discharge Disposition: Admit to Inpatient Condition: Stable Patient Problem(s) Reviewed: Yes Date Decision to Admit to Inpatient: 02/04/19 Time Decision to Admit to Inpatient: 19:08
--- NOTE | 2019-02-04 18:17 | EKG ---
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
[2019-02-04 18:21] LABS: BASOPHILS # (AUTO) 0.02 10*3/UL; BASOPHILS % (AUTO) 0.3 % (0-1); EOSINOPHILS # (AUTO) 0.07 10*3/UL; EOSINOPHILS % (AUTO) 1.1 % (0-8); Hematocrit [HCT] 37.5 % (37.0-47.0); Hemoglobin [HGB] 12.2 g/dL (12.0-16.0); LYMPHOCYTES # (AUTO) 2.25 10*3/uL; MEAN CORPUSCULAR HGB CONC 32.5 g/dL (33-37); MEAN CORPUSCULAR VOLUME 95.7 FL (81-99); MEAN PLATELET VOLUME 9.8 FL (7.4-12.2); MONOCYTES # (AUTO) 0.62 10*3/UL (0.3-0.8); MONOCYTES % (AUTO) 10.2 % (5-15); NEUTROPHILS # (AUTO) 3.13 10*3/UL; NEUTROPHILS % (AUTO) 51.3 % (50-80); RED BLOOD COUNT 3.92 10^6/uL (4.20-5.40)
[2019-02-04 18:23] LABS: PLATELET MORPHOLOGY COMMENT NORMAL MORPHOLOGY (NORM); RBC MORPHOLOGY COMMENT NORMAL MORPHOLOGY (NORM); WBC MORPHOLOGY COMMENT NORMAL MORPHOLOGY (NORM)
[2019-02-04 18:30] LABS: BLOOD UREA NITROGEN 41 mg/dL (7-22); BUN/CREATININE RATIO 25.62 (6-20); SERUM ALBUMIN 4.4 g/dL (3.5-4.8)
[2019-02-04 18:33] LABS: VENOUS PH 7.36 (7.32-7.42)
[2019-02-04 18:59] LABS: BILIRUBIN,URINE NEGATIVE (NEG); CLARITY,URINE Slightly Cloudy (CLEAR); COLOR,URINE YELLOW (Y); GLUCOSE, URINE (UA) NEGATIVE (NEG); OCCULT BLOOD,URINE NEGATIVE (NEG); PH,URINE 5.5 (5.0-8.5); PROTEIN,URINE NEGATIVE (NEG); UROBILINOGEN,URINE 0.2 EU/dL (0.2)
[2019-02-04 19:07] LABS: RENAL EPITHELIAL CELLS,URINE FEW; SQUAMOUS EPITHELIAL CELL,UR MANY; URINE SAMPLE TYPE CLEAN CATCH URINE
[2019-02-04 19:08] LABS: BACTERIA,URINE FEW
--- NOTE | 2019-02-04 19:22 | DI ---
AP CHEST X-RAY, 02/04/2019 6:25 PM : Clinical History: Chest pain. Previous Exam: None at this facility. Soft Tissues: No acute soft tissue abnormality. Bones: Normal. Heart: Heart Size: Normal. Vascular Pedicle Width: Normal. Azygous Vein: Normal size. Vascular Flow P attern:Normal. Pulmonary Arteries: Normal. Lungs: No infiltrates. Effusion(s): None. Mediastinum: Normal. Nodules: No pulmonary nodules. Reading: Negative chest x-ray.
--- NOTE | 2019-02-04 19:33 | PDOC ---
HPI - History of Present Illness History of Present Illness: This very nice 78-year-old female with past medical history significant for ectopy and he mentioned she is on 5 different blood pressure meds including a beta amandeep heart rates in the 50s right now she comes in with some chest pain that started earlier this afternoon about 6 out of 10 does not radiate to the neck but a little bit down her left arm she was given some Ativan and this helped her pain is well down to 6 she states that she had a stress test 4 months ago which was negative I do not have those results she is also scheduled for a nuclear parathyroid scan on Saturday. Nausea vomiting diarrhea Past Medical History Medical History: 1. Cerebrovascular disease with history of stroke in the past. 2. Postsurgical hypothyroidism. 3. Diabetes mellitus type II well controlled. 4. Hypertension. 5. Hypercholesterolemia. 6. Chronic kidney disease, stage III, creatinine baseline about 1.2-1.3 Surgical History: 1. Appendectomy. 2. Right knee scope. 3. thyroidectomy. 4 . Left carotid endarterectomy. 5. Lumbar back surgery with Dr. Pierre Pertinent Family History: Significant for heart disease and diabetes. 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 Does not smoke or drink. Spends time in [employer] and in [employer]. Tobacco Use: Former Smoker In the Past 12 Months, Have Used or Abuse Any of the Following Substance: None Medication / Allergies Home Medications: Home Medications Medication Instructions Recorded Confirmed Pen Needle, Diabetic [Ulticare Pen 0 amp .ROUTE .MEDSUPPLY 11/21/17 02/04/19 Needle] ramipril 10 mg capsule 20 mg PO BID #360 cap 07/16/18 02/04/19 clopidogrel 75 mg tablet 75 mg PO QDAY #90 tab 07/21/18 02/04/19 Hydralazine HCl 25 mg PO Q6H PRN 08/31/18 02/04/19 amlodipine 10 mg tablet 10 mg PO DAILY #90 tab 09/26/18 02/04/19 lorazepam 0.5 mg tablet 0.5 mg PO Q6H PRN #60 tab 09/26/18 02/04/19 carvedilol 12.5 mg tablet 25 mg PO BID tab 12/02/18 02/04/19 atorvastatin 20 mg tablet 20 mg PO QHS #90 tab 12/12/18 02/04/19 levothyroxine 100 mcg tablet 100 mcg PO DIRECTED tab 01/02/19 02/04/19 acetaminophen 500 mg tablet 500 mg PO Q6H PRN 01/28/19 02/04/19 hydrochlorothiazide 25 mg tablet 12.5 mg PO QDAY tab 01/28/19 02/04/19 Blood Sugar Diagnostic [Accu-Chek 0 ea .ROUTE .MEDSUPPLY 02/04/19 02/04/19 Juliane Plus test strp] Insulin Glargine,Hum.rec.anlog 17 unit SUBCUT QDAY 02/04/19 02/04/19 [Toujuana Max U-300 SoloStar] Allergies/Adverse Reactions: Allergies Allergy/AdvReac Type Severity Reaction Status Date / Time iodine [Iodine] Allergy Severe Anaphylaxis Verified 02/04/19 17:53 SHELLFISH Allergy Severe Anaphylaxis Uncoded 02/04/19 17:53 Review of Systems - Respiratory Respiratory: DENIES: Negative System Review, Cough, Sputum, Dyspnea At Rest, Dyspnea with Exertion, Pleuritic Pain, Hemoptysis, Wheezing, Other, See HPI - Cardiovascular Cardiovascular: REPORTS: Chest Pain - Gastrointestinal Gastrointestinal / Abdominal: DENIES: Negative System Review, Nausea, Vomiting, Diarrhea, Constipation, Abdominal Pain, Bloody Stool, Poor Appetite, Heartburn, Regurgitation, Bloating, Lactose Intolerance, Melena, Bright Red Blood per Rectum, Other, See HPI Exam - Vitals Vital Signs: Vital Signs Temperature 97.3 F Temperature Source Temporal Artery Scan Pulse Rate [Pulse Oximeter 59 Right] Respiratory Rate 16 Blood Pressure [Left Arm] 144/62 Pulse Ox 94 Oxygen Delivery Method Room Air Height 5 ft 4 in Weight 162 lb Results - Labs CBC and BMP: 02/04/19 17:50 02/04/19 17:50 Assessment and Plan - Patient Problems (1) Bradycardia Current Visit: Yes Status: Acute Code(s): R00.1 - Bradycardia, unspecified (2) Chest pain Current Visit: Yes Status: Acute Code(s): R07.9 - Chest pain, unspecified (3) Anxiety Current Visit: No Status: Chronic Code(s): F41.9 - Anxiety disorder, unspecified (4) Benign essential hypertension Current Visit: No Status: Chronic Onset Date: 11/04/12 Code(s): I10 - Essential (primary) hypertension - Assessment / Plan Additional Assessment/Plan Details: #1 chest pain patient has a history of cerebrovascular disease on Plavix I did not 100% rule out that this is not her heart we will admit patient and order Lexiscan stress test. #2 hypertension I am going to hold her beta amandeep and ARB and the hydrochlorothiazide since she is bradycardic and blood pressures on the low side. #3 she has chronic renal failure since last year while try to hydrate her and re check indices in the morning #4 diabetes continue usual meds is crusted family which is her at the bedside the patient agreed with the plan
[2019-02-04] MEDS ORDERED: LIDOCAINE W/ SODIUM BICARB 0.5 ML SYR SUBD PRN (20:10)
[2019-02-04] MEDS ORDERED: CALCIUM CARBONATE 500 MG (TUMS) CHEWABLE TABLET PO PRN (20:10)
[2019-02-04] MEDS ORDERED: LEVOTHYROXINE 100 MCG TABLET PO SCH (20:10)
[2019-02-04] MEDS ORDERED: ACETAMINOPHEN 500 MG TABLET PO PRN (20:10)
[2019-02-04] MEDS ORDERED: ONDANSETRON 4 MG/2 ML VIAL IVP PRN (20:10)
[2019-02-04 20:26] LABS: AMPHETAMINE SCREEN NEGATIVE (NEG); CANNABINOID SCREEN,URINE NEGATIVE (NEG); COCAINE SCREEN NEGATIVE (NEG); METHADONE URINE SCREEN NEGATIVE (NEG); METHAMPHETAMINES SCREEN,URINE NEGATIVE (NEG); OPIATE SCREEN,URINE NEGATIVE (NEG); URINE SAMPLE TYPE VOIDED SPECIMEN; URINE SPECIFIC GRAVITY - MAN 1.005
[2019-02-04] MEDS ORDERED: LORazepam 1 MG TABLET PO PRN (20:30)
[2019-02-04] MEDS: CLOPIDOGREL 75 MG TABLET PO SCH (20:59)
[2019-02-04] MEDS: HEPARIN 5000 UNIT/1 ML SUBCUT SCH (21:03)
[2019-02-04] MEDS: ATORVASTATIN 20 MG TABLET PO SCH (21:03)
[2019-02-04] MEDS: Sodium Chloride 0.9% 1,000 ML PRIMARY IV SCH (21:05)
[2019-02-05] MEDS: LEVOTHYROXINE 100 MCG TABLET PO SCH (04:48)
[2019-02-05] MEDS: HEPARIN 5000 UNIT/1 ML SUBCUT SCH ×3 (04:48→20:09)
[2019-02-05] MEDS: Sodium Chloride 0.9% 1,000 ML PRIMARY IV SCH (04:50)
[2019-02-05 05:18] LABS: BLOOD UREA NITROGEN 36 mg/dL (7-22); BUN/CREATININE RATIO 27.69 (6-20); CHOL/HDL RATIO 4.03 RATIO (0-4.0); SERUM ALBUMIN 3.4 g/dL (3.5-4.8)
[2019-02-05] MEDS: CLOPIDOGREL 75 MG TABLET PO SCH (08:33)
--- NOTE | 2019-02-05 09:26 | PDOC(PROG) ---
Date of Service: 02/05/19 Time of Service: 09:30 Interval History: Subjective Patient came into the hospital yesterday because of pain felt in the anterior chest there was no radiation. The episode lasted for about 10 minutes. sHe said she had another episode lasted about 10-15 minutes. No radiation. Because of that she came into the ER. sHe said she had some episode overnight but not today. She said she had a history of uncontrolled blood pressure and she was on multiple medication. They had to readjust medication recently because of low blood pressure. Hydrochlorothiazide was cut back from 25 to 12.5 mg a day. She did say she was here in [place] [facility] [place] tests and apparently had a nuclear test and was fine. Objective : Data - Labs CBC and BMP: 02/04/19 17:50 02/05/19 04:30 Objective : Exam - General General Appearance: No Acute Distress, Cooperative - Head Head Exam: Normal Inspection - Eye Eye Exam: Normal Appearance - ENT ENT Exam: Normal Exam - Neck Neck Exam: Normal Inspection - Respiratory Respiratory Exam: Clear to Auscultation - Bilaterally - Cardiovascular Cardiovascular Exam: RRR - GI/Abdominal GI/Abdominal Exam: Normal Bowel Sounds, Non Tender, Non Distended, Soft, No Organomegaly - Rectal Rectal Exam: Deferred - External Exam: Deferred - Extremities Extremities Exam: Normal Inspection - Back Back Exam: Normal Inspection - Neurological Neurological Exam: Alert, Oriented x 3, CN II-XII Intact, No Facial Droop, Moves All Extremities Equally - Psychiatric Psychiatric Exam: Normal Affect - Integumentary Integumentary Exam: Normal Color Assessment and Plan - Patient Problems (1) Bradycardia Current Visit: Yes Status: Acute Comment: Normally she said only on carvedilol once a day. Her blood pressure medication including the Coreg was withheld because of borderline blood pre ssure. I think will see what's her blood pressure during the day and heart rate and then will decide if we need to restart some of her pressure medications back. Code(s): R00.1 - Bradycardia, unspecified (2) Chest pain Current Visit: Yes Status: Acute Comment: Her enzymes repeated are negative. She'll have the first part of the stress test today and then the second part tomorrow. Code(s): R07.9 - Chest pain, unspecified (3) Benign essential hypertension Current Visit: No Status: Chronic Onset Date: 11/04/12 Comment: Continue amlodipine. Continue holding the rest of her medication and we'll see what happen to her blood pressure after we stop the IV fluid. Code(s): I10 - Essential (primary) hypertension
[2019-02-05] MEDS: INSULIN GLARGINE HUM REC ANLOG SUBCUT SCH (12:30)
[2019-02-05] MEDS: ATORVASTATIN 20 MG TABLET PO SCH (20:08)
[2019-02-05] MEDS: NITROGLYCERIN 0.4 MG SL TAB (BOTTLE OF 3) SL PRN ×2 (22:40→22:48)
--- NOTE | 2019-02-05 22:50 | EKG ---
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1940 Requested By: Lebron Mcmahan Order Number: [id number] Reading MD: Colton Lema Measurements Intervals [place] Rate: 72 P: 143 [place]: 134 QRS: -12 QRSD: 102 T: 36 QT: 352 QTc: 387 Interpretive Statements ECTOPIC ATRIAL RHYTHM NONSPECIFIC T-WAVE ABNORMALITY ABNORMAL RHYTHM ECG Compared to ECG 02/04/2019 17:54:33 Ectopic atrial rhythm now present T-wave abnormality now present Sinus rhythm no longer present Electronically Signed On 02-06-2019 11:06:45 MDT by Colton Lema [id number]
[2019-02-05] MEDS: RAMIPRIL 10 MG CAPSULE PO SCH (23:08)
[2019-02-06] MEDS: HEPARIN 5000 UNIT/1 ML SUBCUT SCH ×2 (04:46→12:22)
[2019-02-06] MEDS: LEVOTHYROXINE 100 MCG TABLET PO SCH (06:31)
[2019-02-06] MEDS ORDERED: CARVEDILOL 6.25 MG TABLET PO SCH (09:00)
[2019-02-06] MEDS ORDERED: CARVEDILOL 3.125 MG TABLET PO SCH (09:00)
[2019-02-06] MEDS: CLOPIDOGREL 75 MG TABLET PO SCH (09:01)
[2019-02-06] MEDS: RAMIPRIL 10 MG CAPSULE PO SCH (09:02)
--- NOTE | 2019-02-06 09:03 | STRESSTEST ---
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 await nuclear images. [id number]
[2019-02-06] MEDS: INSULIN GLARGINE HUM REC ANLOG SUBCUT SCH (09:31)
[2019-02-06 11:24] VITALS: BP 143/61; RESP 17; TEMP 98.3; O2SAT 97
--- NOTE | 2019-02-06 15:19 | DI ---
2 DAY LEXISCAN STRESS & REST MYOCARDIAL PERFUSION SCANS, 02/05/2019-02/06/2019: Clinical History: Chest pain. Previous Exam: 10/22/2016. Monitoring Physician: Dr. Lebron Mcmahan. Dose: Stress dose: 36 mCi on 02/06/2019. Rest dose: 37 mCi on 02/05/2019. Quantitative Analysis: RFinity program without and with low dose limited CT chest scan attenuati on correction. Exam Quality: Excellent. Rejected Beats: Stress = 0%; Rest = 0%. HR: Stress = 55-59 b/m; Rest = 57-6 2 b/m. Left Ventricular Chamber Sizes: Normal at stress and rest. Transient Ischemic Dilatation Ratio: 0.84. Normal Angelo TID <= 1.22; normal Lexiscan TID <= 1.33. LVEF: Stress: 73%. Rest: 75%. Myocardial Perfusion: There is no perfusion abnormality with the non-attenuated corrected scans but t here is a reversible defect in the lateral basal segment and part of the apex. All of the upton perfu se normally. Myocardial Wall Motion: There is mild hypokinesis at stress and rest in the lateral wall and this cor responds to the stress defect noted on the perfusion scans. All other upton contract vigorously. Myocardial Thickening: Slight decreased thickening in the lateral wall. All other upton show normal t hickening at stress and rest. Coronary Artery Calcifications: Dense calcifications are present in the proximal third of the LAD wit h extensive calcifications continuing to the middle third of the LAD. Scattered calcifications are pr esent in the left circumflex artery. Lungs: No lung nodules or enlarged nodes. Readin. Normal stress and rest left ventricular chamber size. Transient ischemic dilatation ratio is 0.84 . 2. Normal stress and rest LVEF values of 73% and 75%, respectively. 3. There is a reversible defect corresponding to the lateral basal segment and the lateral wall show s mild to moderate hypokinesis at stress and rest with decreased thickening in the same area at stres s and rest. These findings are new since the previous study from 10/22/2016. 4. All other upton show normal perfusion, wall motion, and thickening at stress and rest. 5. Coronary artery calcifications extensively in the proximal and middle thirds of the LAD with scat tered calcifications in the left circumflex artery. No lung nodules or adenopathy present.
--- NOTE | 2019-02-06 15:35 | DCSUMMARY ---
Hospitalization Summary Admit Date: 02/04/2019 Discharge Date: 02/06/19 Hospital Course: Transfer diagnoses 1. Episodes of Chest pain, enzymes negative, stress test showed reversible defect corresponding to the lateral basal segment and the lateral wall shows mild to moderate hypokinesis at stress and rest with decreased thickening in the same area at stress and rest. These findings are new since the previous study from 10/22/2016. 2. History of hypertension 3. History of diabetes on insulin 4. History of hypothyroidism 5. Chronic kidney disease stage III 6. History of left carotid endarterectomy 7. History of TIA 8. Dense calcifications are present in the proximal third of the LAD with extensive calcifications continuing to the middle third of the LAD. Scattered calcifications are present in the left circumflex artery. Hospital course This is a 78 years old female with medical history significant for history of diabetes, hypertension, history of TIA, history of chronic renal insufficiency who presented to the hospital with history of pain felt in the left side of the chest pain lasted about 10-15 minutes. She said she had 2 episodes. She was admitted to the hospital for further evaluation. Her enzymes remained negative EKG was negative. She was admitted in by Dr. Crane please see his note. Her creatinine when when she came in was 1.6 she was given some fluid. The next day her creatinine was 1.3. Her blood pressure was borderline so we've held some of her blood pressure medications. While she was here she did have an episode of chest pain that responded to nitroglycerin. We did restart some of her blood pressure medication including the beta amandeep and the ramipril. She did have a stress test the next day during the stress test she had an EKG ST depression in lead 1 and aVL was slightly less than 1 mm. The results of the nuclear part showed There is a reversible defect corresponding to the lateral basal segment and the lateral wall shows mild to moderate hypokinesis at stress and rest with decreased thickening in the same area at stress and rest. These findings are new since the previous study from 10/22/2016. Because of that result I spoke with the Dr. joseph the senior sql server developer in [place]. He accepted the patient for transfer and patient agreed for transfer. Laboratory Results Laboratory Results 02/05/19 22:51 Troponin I < 0.012 Discharge instruction Diet nothing by mouth Medications Active Medications Acetaminophen (Tylenol) 500 mg PO Q6H PRN PRN Reason: Pain Amlodipine Besylate (Norvasc) 10 mg PO DAILY [facility] Last Admin: 02/06/19 09:01 Dose: 10 mg Documented by: Atorvastatin Calcium (Lipitor) 20 mg PO BEDTIME [facility] Last Admin: 02/05/19 20:08 Dose: 20 mg Documented by: Calcium Carbonate (Tums) 1 - 2 tab PO QID PRN PRN Reason: Heartburn Carvedilol (Coreg) 3.125 mg PO BID [facility] Last Admin: 02/06/19 09:02 Dose: 3.125 mg Documented by: Clopidogrel Bisulfate (Plavix) 75 mg PO DAILY [facility] Last Admin: 02/06/19 09:01 Dose: 75 mg Documented by: Heparin Sodium (Porcine) (Heparin Inj) 5,000 unit SUBCUT Q8H [facility] Last Admin: 02/06/19 12:22 Dose: 5,000 unit Documented by: Sodium Chloride (Normal Saline 0.9%) 25 mls @ 200 mls/hr IV .Post Infusion PRN PRN Reason: Flush Levothyroxine Sodium (Synthroid) 100 mcg PO DAILY@0530 [facility] Last Admin: 02/06/19 06:31 Dose: 100 mcg Documented by: Lidocaine HCl (Lidocaine Buffered Inj) 0.5 ml SUBD ONCE PRN PRN Reason: IV Starts Lorazepam (Ativan Tab) 0.5 mg PO Q6H PRN PRN Reason: Anxiety Last Admin: 02/05/19 23:19 Dose: 0.5 mg Documented by: Nitroglycerin (Nitrostat Sl 0.4mg Tab) 1 tab SL Q5M PRN PRN Reason: Chest Pain Last Admin: 02/05/19 22:48 Dose: 1 tab Documented by: Own Med : Insulin Glargine,Hum.Rec. Anlog [Basaglar) 17 unit SUBCUT DAILY [facility] Last Admin: 02/06/19 09:31 Dose: 17 unit Documented by: Ondansetron HCl (Zofran Inj) 4 mg IVP Q4H PRN PRN Reason: NAUSEA / VOMITING Ramipril (Altace) 10 mg PO BID [facility] Last Admin: 02/06/19 09:02 Dose: 10 mg Documented by: Follow-up per [facility] post discharge. Condition at discharge was stable for discharge Exam - Vitals Vital Signs: Vital Signs Temperature 98.3 F Temperature Source Oral Pulse Rate [Right Radial] 64 Pulse Rate [Pulse Oximeter 57 Right] Pulse Rate [Pulse Ox] 77 Pulse Rate 55 Respiratory Rate 17 Blood Pressure [Right Arm] 143/61 Blood Pressure [Left Arm] 116/55 Blood Pressure 132/74 Pulse Ox [Pulse Ox] 97 Pulse Ox 97 Oxygen Flow Rate [Pulse Ox] 98 Oxygen Flow Rate 1 Oxygen Delivery Method [Pulse Room Air Ox] Oxygen Delivery Method Room Air Height 5 ft 4 in Weight 164 lb 9.6 oz - General General Appearance: No Acute Distress, Cooperative - Head Head Exam: Normal Inspection - Eye Eye Exam: POSITIVE: Normal Appearance - ENT ENT Exam: POSITIVE: Normal Exam - Neck Neck Exam: Normal Inspection - Respiratory Respiratory Exam: POSITIVE: Clear to Auscultation - Bilaterally - Cardiovascular Cardiovascular Exam: POSITIVE: RRR, Systolic Murmur - GI/Abdominal GI/Abdominal Exam: POSITIVE: Normal Bowel Sounds, Non Tender, Non Distended, Soft - Rectal Rectal Exam: POSITIVE: Deferred - External Exam: POSITIVE: Deferred Exam: POSITIVE: Deferred - Extremities Extremities Exam: POSITIVE: Normal Inspection - Back Back Exam: POSITIVE: Normal Inspection - Neurological Neurological Exam: POSITIVE: Alert, Oriented x 3, CN II-XII Intact, Speech Intact / Clear, Moves All Extremities Equally - Psychiatric Psychiatric Exam: POSITIVE: Normal Affect Patient Problems - Patient Problem List (1) Bradycardia Current Visit: Yes Status: Acute Code(s): R00.1 - Bradycardia, unspecified Category: Medical (2) Chest pain Current Visit: Yes Status: Acute Code(s): R07.9 - Chest pain, unspecified Category: Medical (3) Benign essential hypertension Current Visit: No Status: Chronic Onset Date: 11/04/12 Comment: Has been taking the HCTZ 12.5 mg BID. Will have her decrease to 12.5mg daily and take only in the morning and see if nocturia improves. Code(s): I10 - Essential (primary) hypertension Category: Medical
[2019-02-06] MEDS ORDERED: ATORVASTATIN 20 MG TABLET PO SCH (21:00)
== END 2019-02-06 16:45 | disposition short-term general hospital (02) ==
LOC: ER 17:50 → MED/SURG 17:50
PROVIDERS: ADMIT Internal Medicine; ATTEND Internal Medicine